=== PATIENT | female | born 1950 | race Caucasian/White ===

== ENCOUNTER → 2016-06-22 | Outpatient (CLI) | payer MEDICARE, OTHER ==
[~2016-06-22] VITALS: Ht 160 cm; Wt 54.4 kg
[~2016-06-22] MED LIST: AC325T; ACET-461 PO; ASPI-983 PO; ATOR40TA70; ATOR40TA70 PO; CATHETER FLUSH 10 ML SYR IV PRN; CPR500T PO; DICY10CA12 PO; ERYT-95 PO; FAMO20TA5 PO; HYDR1TAB PO; HYOS0.1283 SL; ISOS30TA3 PO; LISI10TA2 PO; LRT10T PO; METR500T PO; NORT50CA PO; ONDA4TAB8 PO; REGADENOSON 0.4 MG/5 ML SYR (LEXISCAN) IV ONE; TRAM-21 PO; [UNRECOGNIZED DRUG - CODE]
--- OUTSIDE RECORDS SUMMARY | 2016-06-22 09:06 | XMS REPORT | Continuity of Care Document ---
Author Author [facility] Organization [facility] Address Unknown Phone Unavailable Care Team Providers Care Home Demonstration Agent Name Role Phone Rama Menendez PCP [phone] Source Comments Some departments are not documenting in the electronic medical record. If you do not see the information that you expected, contact Release of Information in the Health Information Management department at [phone] for further assistance in locating additional records.[facility] Active Allergies and Adverse Reactions Allergen Noted Date Severity Reactions Comments Codeine 07/02/2012 NAUSEA AND VOMITING Current Medications Prescription Sig. Disp. Refills Start End Date Status Date polyethylene glycol 3350 Take 17 g by mouth daily. Active (GLYCOLAX; MIRALAX) 17 gram/dose powder famotidine (PEPCID) 20 mg Take 20 mg by mouth twice Active tablet daily. dicyclomine (BENTYL) 10 Take 10 mg by mouth every Active mg capsule 6 hours as needed. loratadine (CLARITIN) 10 Take 20 mg by mouth Active mg tablet daily. nortriptyline (PAMELOR) Take 1 Cap by mouth at 30 Cap 5 08/16/19 Active 50 mg capsule bedtime daily. 13 cholecalciferol (Vitamin Take 1,000 Units by mouth Active D3) (VITAMIN D-3) 1,000 daily. units tablet acetaminophen (TYLENOL) Take 1,000 mg by mouth as Active 500 mg tablet Needed. atorvastatin (LIPITOR) 40 Take 40 mg by mouth Active mg tablet daily. cyanocobalamin (VITAMIN Inject 1 mL to area(s) as 3 Vial 3 09/05/19 Active B-12, RUBRAMIN) 1,000 directed every 30 days. 15 mcg/mL injection gabapentin (NEURONTIN) Take 1 Cap by mouth twice 270 Cap 3 05/07/20 Active 300 mg capsule daily. 15 lisinopril (PRINIVIL; Take 10 mg by mouth Active ZESTRIL) 10 mg tablet daily. isosorbide mononitrate SR Take 30 mg by mouth every Active (IMDUR) 30 mg tablet morning. predniSONE (DELTASONE) 10 Take 1 Tab by mouth daily 53 Tab 0 03/17/20 Active mg tablet with breakfast. 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 This is according to GI note and the patient. There is no scan of the biopsy in [facility]. She didn't have peripheral eosinophilia on CBC. It could be related to Prednisone course, so we will repeat it today again. We think the patient came a little bit earlier for oriented management. It would be important to find out the extent of the disease by confirming it by EGD and colonoscopy, since it will dictate the use of certain glucocorticoids. Although food hypersensitivity plays an important role in EG pathogenesis, no food allergy test (skin, patch or allergen specific IgE) has been shown to effectively identify specific culprit foods leading to clinical improvement of EG symptoms or tissue eosinophilia. Thus, at present there is no evidence base to support routine food allergy testing of EG patients for use in clinical decision making. A prospective trial in adults with EG has demonstrated clinical remission with a six-week course of dietary elimination. In this study, three of seven adults undergoing an empiric six food elimination diet and six of six adults undergoing elemental diet had significant reduction in symptoms, complete histological remission, endoscopic improvement and normalization of peripheral eosinophilia within six weeks. There is some data that elimination of milk and milk products alone could be beneficial. We discussed it with Ms. Bautista and she didn't enjoy the idea this time. Apparently Cromolyn is considered by our GI colleagues as a part of treatment as well. There are case reports and some of them report improvement and some not. Montelukast was described to be effective in some case reports, but not all of them. In a preliminary report of four patients, treatment with a humanized xeie-bdjuoxvqbsk-9 antibody was associated with reduced peripheral and tissue eosinophil counts but had no effect on symptoms. Similar results were described by using humanized wfhb-lzuchgpshvv-2 antibody in patients with EoE. She denies any history of asthma or hayfever. Though it is a known fact that aeroallergens play some role in patients with EoE. We are not sure if testing this patient for aeroallergen would be contributory, but we might consider it in the future. She had in the past multiple episodes of abdominal pain and diarrhea. --order tryptase today Abdominal bloating 07/02/2012 History of small bowel obstruction 07/02/2012 Overview: S/p resection 38cm 04/2012 Most Recent Encounters Date Type Specialty Providers Description 05/31/2016 Telephone Gastroenterology Jamir King MD Results - CT Colonography 05/31/2016 Result Letter Gastroenterology Jamir King MD 05/30/2016 Hospital Radiology Jamir King MD Encounter 04/20/2016 Telephone Gastroenterology Angeles Hernandez ARNP Follow-up Phone Call Social History Tobacco Use Types Packs/Day Years Used Date Current Every Day Smoker Cigarettes 0.5 40 Tobacco Cessation: Ready to Quit: No Comments: Alcohol Use Drinks/Week oz/Week Comments No 0 Standard 0.0 drinks or equivalent Last Filed Vital Signs Vital Sign Reading Time Taken Blood Pressure 100/50 03/17/2016 1:26 PM CDT Pulse 77 03/17/2016 1:26 PM CDT Temperature 36.7 C (98 F) 03/17/2016 1:26 PM CDT Respiratory Rate 16 03/17/2016 1:26 PM CDT Height 1.575 m (5' 2") 03/17/2016 1:26 PM CDT Weight 55.702 kg (122 lb 12.8 03/17/2016 1:26 PM CDT oz) Body Mass Index 22.45 03/17/2016 1:26 PM CDT Oxygen Saturation 97% 03/17/2016 1:26 PM CDT Plan of Care Date Type Specialty Providers Description 08/03/2016 Appointment Gastroenterology Jamir King MD [address] [facility] [address] [place] [address] [phone] (Fax) Health Maintenance Due Date Last Done Comments Hepatitis C Screening 1950 Physical (Comprehensive) 1958 Exam Pertussis Vaccine 1962 Tetanus Vaccine 1968 Breast Cancer Screening 1991 Shingles Vaccine 2011 Influenza Vaccine 02/18/2016 Osteoporosis Screening 2016 Prevnar/Pneumovax (#1) 2016 Colorectal Cancer 07/09/2025 07/09/2015, 07/19/2012, 07/19/2012 Screening Results from Last [address] COLONOGRAPHY DX WO CONTRST (05/30/2016 8:51 AM) Impressions EXTRACOLONIC: No significant extracolonic findings identified. COLONIC: 1. No large polyp or colonic mass lesions identified. Continued routine colonic screening is suggested. 2. Redundant sigmoid colon with mild sigmoid diverticulosis. Finalized by Vika Pelayo M.D. on 05/30/2016 4:58 PM. Dictated by Vika Pelayo M.D. on 05/30/2016 4:[address] COLONOGRAPHY CLINICAL HISTORY: 66-year-old female with abdominal pain. Previous incomplete colonoscopy with reported visualization to the level of the transverse colon. TECHNIQUE: One-day prior to the study the patient was prepped using a combination of bisacodyl, 2 bottles of magnesium citrate, liquid barium sulfate , and Gastrografin per a standard protocol. A rectal tube was inserted and the colon was insufflated with CO2. Multiple contiguous axial CT images were obtained of the abdomen and pelvis with the patient in the supine and prone positions. Multiplanar reformations were performed and 3D colonography fly through images were then generated using axial source data. Comparison: Comparison is made with previous MR enterography dated June 14, [address] abdomen/pelvis dated March 10, 2015. No prior CT colongraphy is available for comparison. FINDINGS: Extracolonic findings: Numerous small bowel anastomoses are seen. Colonic findings: Note this study is insensitive for detection of small polyps (less than 1 cm). The colon is well prepped and well distended. There is redundancy of the sigmoid colon with mild sigmoid diverticulosis identified. No findings to suggest acute diverticulitis. No large polyp or colonic mass lesion is identified. Procedure Note Interface, Radiant Results - Mon May 30, 2016 5:01 PM CHEMISTRY TECHNICAL OFFICER CT COLONOGRAPHY CLINICAL HISTORY: 66-year-old female with abdominal pain. Previous incomplete colonoscopy with reported visualization to the level of the transverse colon. TECHNIQUE: One-day prior to the study the patient was prepped using a combination of bisacodyl, 2 bottles of magnesium citrate, liquid barium sulfate , and Gastrografin per a standard protocol. A rectal tube was inserted and the colon was insufflated with CO2. Multiple contiguous axial CT images were obtained of the abdomen and pelvis with the patient in the supine and prone positions. Multiplanar reformations were performed and 3D colonography fly through images were then generated using axial source data. Comparison: Comparison is made with previous MR enterography dated June 14, [address] abdomen/pelvis dated March 10, 2015. No prior CT colongraphy is available for comparison. FINDINGS: Extracolonic findings: Numerous small bowel anastomoses are seen. Colonic findings: Note this study is insensitive for detection of small polyps (less than 1 cm). The colon is well prepped and well distended. There is redundancy of the sigmoid colon with mild sigmoid diverticulosis identified. No findings to suggest acute diverticulitis. No large polyp or colonic mass lesion is identified. IMPRESSION EXTRACOLONIC: No significant extracolonic findings identified. COLONIC: 1. No large polyp or colonic mass lesions identified. Continued routine colonic screening is suggested. 2. Redundant sigmoid colon with mild sigmoid diverticulosis. Finalized by Vika Pelayo M.D. on 05/30/2016 4:58 PM. Dictated by Vika Pelayo M.D. on 05/30/2016 4:02 PM.
[2016-06-22 09:57] VITALS: BP 123/66
[2016-06-22 09:59] VITALS: BP 123/64
--- NOTE | 2016-06-23 09:58 | STRESS TEST ---
PROCEDURE PHYSICIAN: TURNER PRADO LEXISCAN MYOVIEW STRESS TEST REPORT DATE OF PROCEDURE: 06/22/2016 REFERRING PHYSICIAN: Dr. Menendez INDICATION: Chest pain, coronary artery disease. Baseline heart rate is 79, baseline blood pressure: 125/83. Baseline EKG: Sinus rhythm with no ischemic changes. SUMMARY: The patient was injected with 10.63 mCi of technetium 99 Myoview and the resting images were obtained. Then the patient received 0.4 mg of Lexiscan followed by 32.2 mCi of technetium 99 Myoview. Throughout the test, there were no EKG changes. The resting and stress images were reviewed and compared in the short axis, horizontal long axis, and vertical long axis views. Review of the images showed good radiotracer uptake with no significant ischemia or infarction. SSS is 1, SDS 1, TID value is 1.08. On the gated images, the left ventricle appeared to be normal size with normal contractility. Calculated ejection fraction 71%. CONCLUSION: 1. The patient tolerated Lexiscan well. 2. No ischemia or infarction on SPECT images. 3. Normal left ventricular size with normal contractility. Calculated ejection fraction 71% Job ID: [id number] Dictated Date: 06/22/2016 19:22:21 Educational Speech Language Clinician Date: 06/23/2016 09:54:04 / jimmy
== END ==
LOC: CARD 09:03
PROVIDERS: ATTEND Physician Assistant
DX: I25.10 Atherosclerotic heart disease of native coronary artery without angina pectoris (principal); R07.89 Other chest pain; E78.2 Mixed hyperlipidemia; R06.02 Shortness of breath
CPT/HCPCS: 78452; 93017

== ENCOUNTER → 2016-06-24 | Outpatient (CLI) | payer MEDICARE, OTHER ==
[~2016-06-24] MED LIST changes: -CATHETER FLUSH 10 ML SYR IV PRN; -REGADENOSON 0.4 MG/5 ML SYR (LEXISCAN) IV ONE
--- OUTSIDE RECORDS SUMMARY | 2016-06-24 08:24 | XMS REPORT | Continuity of Care Document ---
Author Author [facility] Organization [facility] Address Unknown Phone Unavailable Care Team Providers Care Basket Person Name Role Phone Rama Menendez PCP [phone] Source Comments Some departments are not documenting in the electronic medical record. If you do not see the information that you expected, contact Release of Information in the Health Information Management department at [phone] for further assistance in locating additional records.[facility] Active Allergies and Adverse Reactions Allergen Noted [...] of four patients, treatment with a humanized qwrj-lcaxnaihnpx-1 antibody was associated with reduced peripheral and tissue eosinophil counts but had no effect on symptoms. Similar results were described by using humanized elra-tgxsyfxdvly-5 antibody in patients with EoE. She denies [...] 08/03/2016 Appointment Gastroenterology Jamir King MD [address] [facility] [address] [place] [address] [phone] (Fax) Health Maintenance Due Date Last Done [...] - Mon May 30, 2016 5:[address] COLONOGRAPHY CLINICAL HISTORY: 66-year-old female with [...]
--- NOTE | 2016-06-26 15:54 | ECHOCARDIOGRAPHY REPORT ---
PROCEDURE PHYSICIAN: TURNER PRADO DATE OF PROCEDURE: 06/24/2016 TWO DIMENSIONAL ECHOCARDIOGRAM REPORT PRIMARY PHYSICIAN: OTHER PHYSICIAN: REFERRING PHYSICIAN: Dr. Priscila Menendez ORDERING PHYSICIAN: INDICATION FOR THE PROCEDURE: 1. Chest pain. 2. Coronary artery disease. MEASUREMENTS DERIVED VALUES LV DIAMETER (LAX) NORMALS NORMALS Diastolic 3.4 (3.6-5.2) Eject. Fract. 60% (60%+/-6%) Systolic (2.3-3.9) Diastolic Vol. % Shortening (0.22-0.42) Systolic Vol. Aortic Root IVS THICKNESS Diastolic 0.9 (0.6-1.1) LVPW THICKNESS Diastolic 0.9 (0.6-1.1) LA DIAMETER Systolic 2.2 (2.1-3.7) FINDINGS: 1. Technical quality is good. 2. The left ventricle is normal in size with normal contractility. Systolic function appeared to be normal. Estimated ejection fraction 60%. Diastolic dysfunction is suggested by Doppler. 3. The left atrium is normal in size. No clot or thrombus were seen within the left atrium. 4. The right atrium and right ventricle are normal in size. No clot or thrombus were seen within the right side. 5. Mitral valve is normal in morphology with mild mitral regurgitation noted by color Doppler flow. No mitral valve prolapse. No mitral valve stenosis. Doppler across the mitral valve showed equalization of E and A. 6. Aortic valve is functioning normally. There is no significant aortic stenosis or regurgitation seen. 7. Tricuspid valve is normal in morphology with mild tricuspid regurgitation noted by color Doppler flow. Doppler across tricuspid valve estimated pulmonary artery pressure of 20+ right atrial pressure. 8. Pulmonic valve is functioning normally. 9. No pericardial effusion. IN CONCLUSION: 1. Normal left ventricular size and systolic function. Estimated ejection fraction 60%. Diastolic dysfunction is suggested by Doppler. 2. Mild mitral and tricuspid regurgitation. 3. Estimated pulmonary artery pressure of 25 to 30 mmHg. Job ID: [id number] Dictated Date: 06/25/2016 12:52:05 Financial Planner Date: 06/26/2016 15:50:57 / wan
== END ==
LOC: CARD 08:21
PROVIDERS: ATTEND Physician Assistant
DX: I25.10 Atherosclerotic heart disease of native coronary artery without angina pectoris (principal); R07.89 Other chest pain; E78.2 Mixed hyperlipidemia; R06.02 Shortness of breath
CPT/HCPCS: 93306

== ENCOUNTER → 2016-07-28 | Outpatient (CLI) | payer MEDICARE, OTHER, BC ==
--- OUTSIDE RECORDS SUMMARY | 2016-07-28 13:07 | XMS REPORT | Continuity of Care Document ---
Author Author [facility] Organization [facility] Address Unknown Phone Unavailable Care Team Providers Care City Maintenance Manager Name Role Phone Rama Menendez PCP [phone] Source Comments Some departments are not documenting in the electronic medical record. If you do not see the information that you expected, contact Release of Information in the Health Information Management department at [phone] for further assistance in locating additional records.[facility] Active Allergies and Adverse Reactions Allergen Noted [...] of four patients, treatment with a humanized dxsl-mhazhofwupv-8 antibody was associated with reduced peripheral and tissue eosinophil counts but had no effect on symptoms. Similar results were described by using humanized slae-xvzpgyzkhhz-1 antibody in patients with EoE. She denies [...] Recent Encounters Date Type Specialty Providers Description 07/22/2016 Result Letter Gastroenterology Delon Moy MD 07/19/2016 Telephone Gastroenterology Delon Moy MD Follow-up Phone Call 07/18/2016 [facility] Delon Moy MD Other chest pain Encounter 07/18/2016 Orders Only Gastroenterology Delon Moy MD 07/11/2016 Telephone Gastroenterology Delon Moy MD Chest Pain 05/31/2016 Telephone Gastroenterology Delon Moy MD Results - CT Colonography 05/31/2016 Result Letter Gastroenterology Delon Moy MD 05/30/2016 [facility] Radiology Delon Moy MD Encounter Social History Tobacco Use Types Packs/Day Years [...] of Care Date Type Specialty Providers Description 08/01/2016 Appointment Radiology Delon Moy MD [address] [facility] [address] [place] [address] [phone] (Fax) 08/03/2016 Appointment Gastroenterology Delon Myo MD [address] [facility] [address] [place] [address] [phone] (Fax) Health Maintenance Due Date Last Done Comments Hepatitis C Screening 1950 Physical (Comprehensive) 1958 Exam Pertussis Vaccine 1962 Tetanus Vaccine 1968 Breast Cancer Screening 1991 Shingles Vaccine 2011 Influenza Vaccine 02/18/2016 Osteoporosis Screening 2016 Prevnar/Pneumovax (#1) 2016 Colorectal Cancer 07/09/2025 07/09/2015, 07/19/2012, 07/19/2012 Screening Results from Last 3 Months SURGICAL PATHOLOGY (07/18/2016 7:57 AM) Component Value Range PATHOLOGY REPORT [facility] [email or web address] Vivien Neal MD, PhD, Director of Anatomic Pathology Department of Pathology and Laboratory Medicine [address] [place] [id number] Surgical Pathology Office: [phone] SURGICAL PATHOLOGY REPORT NAME: SHANAE BAUTISTA SURG PATH #: [id number] MR #: [id number] SPECIMEN CLASS: SR BILLING #: [id number] ALT ID #: LOCATION: [facility] DATE OF PROCEDURE: 07/18/2016 AGE: 66 SEX: F DATE RECEIVED: 07/19/2016 : 1950 TIME RECEIVED: 07:57 PHYSICIAN: DELON MOY M.D. DATE OF REPORT: 07/20/2016 COPY TO: DATE OF PRINTIN07/20/2016 ################################################## ###################### Final Diagnosis: A. Small intestinal mucosa, "duodenal biopsy", biopsy: Normal villous architecture with no diagnostic abnormalities. There is no evidence of celiac sprue or eosinophilic enteritis. B. Gastric mucosa, "random gastric biopsy", biopsy: Mild reactive gastropathy. No H. pylori-like organisms are identified on H and E sections. There is no evidence of eosinophilic gastritis. C. Squamous mucosa, "esophageal biopsy", biopsy: No diagnostic abnormalities. There is no evidence of eosinophilic esophagitis. Attestation: By this signature, I attest that I have personally formulated the final interpretation expressed in this report and that the above diagnosis is based upon my examination of the slides and/or other material indicated in this report. +++Electronically Signed Out By+++ bo/07/19/2016 Interpreted by: Jaison Troncoso M.D. Resident 07/20/2016 ################################################## ###################### Material Received: A: duodenal biopsy B: random gastric biopsy C: esophageal biopsy History: 66-year-old female with a history of chest pain with weight loss. Gross Description: A. Received in formalin labeled "duodenal BX" is a 0.7 x 0.6 x 0.4 cm aggregate of charles-brown soft tissue fragments. The specimen is entirely submitted in cassette A1. (tn) B. Received in formalin labeled "random gastric BX" is a 0.7 x 0.6 x 0.3 cm aggregate of charles-brown soft tissue fragments. The specimen is entirely submitted in cassette B1. (tn) C. Received in formalin labeled "esophageal BX" is a 0.5 x 0.4 x 0.2 cm aggregate of charles-brown soft tissue fragments. The specimen is entirely submitted in cassette C1. (tn) charles/07/19/2016 Pat Matt M.D. Resident EGD REPORT (07/18/2016)CT COLONOGRAPHY DX WO CONTRST (05/30/2016 8:51 AM) [...] - Mon May 30, 2016 5:01 PM GAS CUTTING MACHINE OPERATOR CT COLONOGRAPHY CLINICAL HISTORY: 66-year-old female with [...]
--- NOTE | 2016-07-28 15:47 | Diagnostic Imaging Report ---
PROCEDURE: CT chest without contrast. TECHNIQUE: Multiple contiguous axial images were obtained through the chest without the use of intravenous contrast. INDICATION: Chest pain, shortness of breath. COMPARISON: No priors for direct comparison. The study correlated with overlapped images from an abdominal CT of 03/07/2016. FINDINGS: Some air trapping and likely emphysematous changes in the apices. No acute infiltrate or pneumonia. No lung mass or suspicious nodule. No findings of thoracic lymphadenopathy. The aorta is nonaneurysmal. Heart and pericardium are unremarkable. There is a tiny hiatal hernia. The visualized upper abdomen is nonacute. No acute soft tissue or osseous chest wall pathology. IMPRESSION: Likely mild biapical changes of COPD. No mass, pneumothorax, pleural fluid, pneumonia, or adenopathy. No acute finding. Dictated by: Dictated on workstation # [id number]
== END ==
LOC: RAD 13:03
PROVIDERS: ATTEND Nurse Practitioner Family
DX: R07.9 Chest pain, unspecified (principal)
CPT/HCPCS: 71250

== ENCOUNTER → 2016-08-18 | Outpatient (CLI) | payer MEDICARE, OTHER ==
--- OUTSIDE RECORDS SUMMARY | 2016-08-18 11:40 | XMS REPORT | Continuity of Care Document ---
Author Author [facility] Organization [facility] Address Unknown Phone Unavailable Care Team Providers Care Rodent Control Worker Name Role Phone Rama Menendez PCP [phone] Source Comments Some departments are not documenting in the electronic medical record. If you do not see the information that you expected, contact Release of Information in the Health Information Management department at [phone] for further assistance in locating additional records.[facility] Active Allergies and Adverse Reactions Allergen Noted [...] SR Take 30 mg by mouth every 08/03/19 Discontin (IMDUR) 30 mg tablet morning. 17 ued predniSONE (DELTASONE) 10 Take 1 Tab by mouth daily 53 Tab 0 03/17/20 08/03/19 Discontin mg tablet with breakfast. 20mg for 16 17 ued 14 days then take 15mg for 1 [...] of four patients, treatment with a humanized ahvl-bjquqcmcsha-0 antibody was associated with reduced peripheral and tissue eosinophil counts but had no effect on symptoms. Similar results were described by using humanized vsvo-ebetgaynovw-2 antibody in patients with EoE. She denies [...] Recent Encounters Date Type Specialty Providers Description 08/03/2016 Office Visit GastroenterDelon Aranda MD Chest pain, unspecified type (Primary Dx); Constipation, unspecified constipation type 08/03/2016 Telephone GastroenterDelon Aranda MD Records Request 08/01/2016 Hospital Radiology Delon Moy MD Encounter 08/01/2016 Ancillary Gastroenterology Delon Moy MD Pancreatic cyst (Primary Orders Dx) 07/29/2016 Screening Form 07/22/2016 Result Letter Delon Mcfadden MD 07/19/2016 Telephone Delon Mcfadden MD Follow-up Phone Call 07/18/2016 [facility] Delon Moy MD Other chest pain Encounter 07/18/2016 Orders Only GastroenterDelon Aranda MD 07/11/2016 Telephone Delon Mcfadden MD Chest Pain 05/31/2016 Telephone GastroenterDelon Aranda MD Results - CT Colonography 05/31/2016 Result Letter Delon Mcfadden MD 05/30/2016 [facility] Radiology Delon Moy MD Encounter Social History Tobacco Use Types Packs/Day Years Used Date Current Every Day Smoker Cigarettes 0.5 40 Tobacco Cessation: Ready to Quit: No Comments: Alcohol Use Drinks/Week oz/Week Comments No 0 Standard 0.0 drinks or equivalent Last Filed Vital Signs Vital Sign Reading Time Taken Blood Pressure 150/88 08/03/2016 8:05 AM [employer] RN Pulse 92 08/03/2016 8:05 AM [employer] RN Temperature 36.5 C (97.7 F) 08/03/2016 8:05 AM [employer] RN Respiratory Rate 14 08/03/2016 8:05 AM [employer] RN Height 1.575 m (5' 2") 08/03/2016 8:05 AM [employer] RN Weight 51.982 kg (114 lb 9.6 oz) 08/03/2016 8:05 AM [employer] RN Body Mass Index 20.96 08/03/2016 8:05 AM [employer] RN Oxygen Saturation 97% 03/17/2016 1:26 PM CDT Plan of Care Date Type Specialty Providers Description 10/06/2016 Appointment Gastroenterology Delon Moy MD [address] [place] [address] [phone] (Fax) Health Maintenance Due Date Last Done Comments Hepatitis C Screening 1950 Physical (Comprehensive) 1958 Exam Pertussis Vaccine 1962 Tetanus Vaccine 1968 Breast Cancer Screening 1991 Shingles Vaccine 2011 Influenza Vaccine 02/18/2016 Osteoporosis Screening 2016 Prevnar/Pneumovax (#1) 2016 Colorectal Cancer 07/09/2025 07/09/2015, 07/19/2012, 07/19/2012 Screening Results from Last 3 Months MRI ABD/MRCP WO/W (08/01/2016 10:21 AM) Impressions 1. Stable subcentimeter cystic lesion in the body of the pancreas remains too small to characterize, but likely small pseudocyst or side branch IPMN. 2. Moderate aortoiliac atherosclerotic plaque with probable high-grade stenosis of the left common iliac artery. Approved by Lilo Melgar M.D. on 08/01/2016 1:36 PM By my electronic signature, I attest that I have personally reviewed the images for this examination and formulated the interpretations and opinions expressed in this report Finalized by JAY JJ M.D. on 08/01/2016 1:52 PM. Dictated by Lilo Melgar M.D. on 08/01/2016 11:16 AM. Narrative MRI ABDOMEN AND MRCP Clinical Indication: Pancreatic cyst. 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 Technique: Multisequence and multiplanar MR imaging was obtained through the abdomen before and following the administration of gadolinium contrast material. IV Contrast:Multihance Bowel contrast: None Magnet:1.5 [employer] Comparison: MRI abdomen 06/14/2015 FINDINGS: Lower Thorax: Unremarkable. Liver: Normal sized liver without focal lesion. The portal veins and hepatic veins are well opacified. MRCP: The gallbladder is absent. No bile duct dilatation. The pancreatic duct is normal caliber. Spleen: Unremarkable. Adrenal Glands and Kidneys: Few subcentimeter left renal cysts. No hydronephrosis. No adrenal mass. Pancreas and Retroperitoneum: Cystic lesion in the body of the pancreas measuring 0.4 cm (series 5 image 13), previously 0.5 cm. No internal enhancement. The adjacent pancreatic duct is normal caliber. The pancreatic parenchyma enhances normally. No peripancreatic fluid collection. No retroperitoneal lymphadenopathy. Aorta and Major Vessels: Normal caliber abdominal aorta with moderate atherosclerotic plaque. There is prominent plaque at the origin of the left common iliac artery with probable high-grade luminal narrowing. Bowel, Mesentery, and Peritoneal space: Visualized loops of large and small bowel are normal caliber. No ascites. Abdominal wall and Osseous Structures: No geographic marrow lesion. Susceptibility artifact in the ventral abdominal wall from previous surgery. Procedure Note Interface, Radiant Results - MonAug 01, 2016 1:55 PM [employer] RN MRI ABDOMEN AND MRCP Clinical Indication: Pancreatic cyst. 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 Technique: Multisequence and multiplanar MR imaging was obtained through the abdomen before and following the administration of gadolinium contrast material. IV Contrast:Multihance Bowel contrast: None Magnet:1.5 [employer] Comparison: MRI abdomen 06/14/2015 FINDINGS: Lower Thorax: Unremarkable. Liver: Normal sized liver without focal lesion. The portal veins and hepatic veins are well opacified. MRCP: The gallbladder is absent. No bile duct dilatation. The pancreatic duct is normal caliber. Spleen: Unremarkable. Adrenal Glands and Kidneys: Few subcentimeter left renal cysts. No hydronephrosis. No adrenal mass. Pancreas and Retroperitoneum: Cystic lesion in the body of the pancreas measuring 0.4 cm (series 5 image 13), previously 0.5 cm. No internal enhancement. The adjacent pancreatic duct is normal caliber. The pancreatic parenchyma enhances normally. No peripancreatic fluid collection. No retroperitoneal lymphadenopathy. Aorta and Major Vessels: Normal caliber abdominal aorta with moderate atherosclerotic plaque. There is prominent plaque at the origin of the left common iliac artery with probable high-grade luminal narrowing. Bowel, Mesentery, and Peritoneal space: Visualized loops of large and small bowel are normal caliber. No ascites. Abdominal wall and Osseous Structures: No geographic marrow lesion. Susceptibility artifact in the ventral abdominal wall from previous surgery. IMPRESSION 1. Stable subcentimeter cystic lesion in the body of the pancreas remains too small to characterize, but likely small pseudocyst or side branch IPMN. 2. Moderate aortoiliac atherosclerotic plaque with probable high-grade stenosis of the left common iliac artery. Approved by Lilo Melgar M.D. on 08/01/2016 1:36 PM By my electronic signature, I attest that I have personally reviewed the images for this examination and formulated the interpretations and opinions expressed in this report Finalized by JAY JJ M.D. on 08/01/2016 1:52 PM. Dictated by Lilo Melgar M.D. on 08/01/2016 11:16 AM. POC CREATININE, RAD (08/01/2016 10:06 AM) Component Value Range Creatinine, POC 0.9 0.4-1.00 MG/DL SURGICAL PATHOLOGY (07/18/2016 7:57 AM) Component Value Range PATHOLOGY REPORT [facility] [email or web address] Vivien Neal MD, PhD, Director of Anatomic Pathology Department of Pathology and Laboratory Medicine [address] [place] [id number] Surgical Pathology Office: [phone] SURGICAL PATHOLOGY REPORT NAME: SHANAE BAUTISTA J SURG PATH #: [id number] MR #: [id number] SPECIMEN CLASS: SR BILLING #: [id number] ALT ID #: LOCATION: [facility] DATE OF PROCEDURE: 07/18/2016 AGE: 66 SEX: [...] - Mon May 30, 2016 5:01 PM [employer] RN CT COLONOGRAPHY CLINICAL HISTORY: 66-year-old female with [...]
--- NOTE | 2016-08-18 12:37 | Diagnostic Imaging Report ---
EXAM: KUB. INDICATION: Abdominal pain. FINDINGS: There are multiple surgical clips seen in the mid abdomen. There are also sutures in the left and right lower quadrants. There are no definitive urinary tract stones. The bowel gas pattern and fecal material amount are within normal limits. IMPRESSION: No acute process. Dictated by: Dictated on workstation # [id number]
== END ==
LOC: RAD 11:15
PROVIDERS: ATTEND Nurse Practitioner Family
DX: R10.12 Left upper quadrant pain (principal)
CPT/HCPCS: 74000

== ENCOUNTER → 2016-08-26 | Outpatient (CLI) | payer MEDICARE, OTHER ==
[~2016-08-26] MED LIST changes: +CATHETER FLUSH 10 ML SYR IV PRN; +IOHEXOL 350 MG/ML 150 ML (OMNIPAQUE 350) VIAL IV ONE; +NS 100 ML (IVPB) BAG IV ONE
--- OUTSIDE RECORDS SUMMARY | 2016-08-26 13:22 | XMS REPORT | Continuity of Care Document ---
Author Author [facility] Organization [facility] Address Unknown Phone Unavailable Care Team Providers Care Business Office Director Name Role Phone Rama Menendez PCP [phone] Source Comments Some departments are not documenting in the electronic medical record. If you do not see the information that you expected, contact Release of Information in the Health Information Management department at [phone] for further assistance in locating additional records.[facility] Active Allergies and Adverse Reactions [...] of four patients, treatment with a humanized ibdu-zdcbrvvtndp-1 antibody was associated with reduced peripheral and tissue eosinophil counts but had no effect on symptoms. Similar results were described by using humanized ogbz-jtdbphifuzq-5 antibody in patients with EoE. She denies [...] Delon Mcfadden MD Follow-up Phone Call 07/18/2016 [facility] Delon Moy MD Other chest pain Encounter 07/18/2016 Orders Only GastroenterDelon Aranda MD 07/11/2016 Telephone Delon Mcfadden MD Chest Pain 05/31/2016 Telephone GastroenterDelon Aranda MD Results - CT Colonography 05/31/2016 Result Letter Delon Mcfadden MD 05/30/2016 [facility] Radiology Delon Moy MD Encounter Social History Tobacco Use Types Packs/Day Years Used Date Current Every Day Smoker Cigarettes 0.5 40 Tobacco Cessation: Ready to Quit: No Comments: Alcohol Use Drinks/Week oz/Week Comments No 0 Standard 0.0 drinks or equivalent Last Filed Vital Signs Vital Sign Reading Time Taken Blood Pressure 150/88 08/03/2016 8:05 AM CERTIFIED OPHTHALMIC ASSISTANT Pulse 92 08/03/2016 8:05 AM CERTIFIED OPHTHALMIC ASSISTANT Temperature 36.5 C (97.7 F) 08/03/2016 8:05 AM CERTIFIED OPHTHALMIC ASSISTANT Respiratory Rate 14 08/03/2016 8:05 AM CERTIFIED OPHTHALMIC ASSISTANT Height 1.575 m (5' 2") 08/03/2016 8:05 AM CERTIFIED OPHTHALMIC ASSISTANT Weight 51.982 kg (114 lb 9.6 oz) 08/03/2016 8:05 AM CERTIFIED OPHTHALMIC ASSISTANT Body Mass Index 20.96 08/03/2016 8:05 AM CERTIFIED OPHTHALMIC ASSISTANT Oxygen Saturation 97% 03/17/2016 1:26 PM CDT Plan of Care Date Type Specialty Providers Description 10/06/2016 Appointment Gastroenterology Delon Moy MD [address] [place] [address] [phone] (Fax) Health Maintenance Due Date Last Done Comments Hepatitis C Screening 1950 Physical (Comprehensive) 1958 Exam Pertussis Vaccine 1962 Tetanus Vaccine 1968 Breast Cancer Screening 1991 Shingles Vaccine 2011 Osteoporosis Screening 2016 Prevnar/Pneumovax (#1) 2016 Influenza Vaccine 02/17/2017 Colorectal Cancer 07/09/2025 07/09/2015, 07/19/2012, 07/19/2012 Screening [...] Results - MonAug 01, 2016 1:55 PM CERTIFIED OPHTHALMIC ASSISTANT MRI ABDOMEN AND MRCP Clinical Indication: Pancreatic cyst. 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 Technique: Multisequence and multiplanar MR imaging was obtained through the abdomen before and following the administration of gadolinium contrast material. IV Contrast:Multihance Bowel contrast: None Magnet:1.5 [employer] Comparison: MRI abdomen 06/14/2015 FINDINGS: Lower Thorax: [...] AM) Component Value Range PATHOLOGY REPORT [facility] [email or web address] Vivien Neal MD, PhD, Director of Anatomic Pathology Department of Pathology and Laboratory Medicine [address] [place] [id number] Surgical Pathology Office: [phone] SURGICAL PATHOLOGY REPORT NAME: SHANAE BAUTISTA J SURG PATH #: [id number] MR #: [id number] SPECIMEN CLASS: SR BILLING #: [id number] ALT ID #: LOCATION: [facility] DATE OF PROCEDURE: 07/18/2016 [...] - Mon May 30, 2016 5:[address]ALMIC ASSISTANT CT COLONOGRAPHY CLINICAL HISTORY: 66-year-old female with [...]
[2016-08-26 13:52] LABS: BLOOD UREA NITROGEN 13 MG/DL (7-18); BUN/CREATININE RATIO 15; CREATININE SERUM 0.89 MG/DL (0.60-1.30); GFR ESTIMATED > 60
--- NOTE | 2016-08-26 14:46 | Diagnostic Imaging Report ---
INDICATION: Peripheral vascular disease with leg pain. Abnormal ankle-brachial indices. CT angiography of the abdomen and lower extremities. Bolus injection with 2-D and 3-D MIP reconstructed images. FINDINGS: Good opacification of the aorta and lower extremity arteries. The celiac artery shows approximately 50-70% stenosis at its origin. The superior mesenteric arteries widely patent. The renal arteries show normal appearance on the right. There is a high-grade stenosis at the takeoff of the left renal artery estimated greater than 70%. The inferior mesenteric artery is patent. Aorta is diffusely atherosclerotic. There is no aneurysm. There is a short segment high-grade stenosis of the left common iliac artery estimated 80-90%. There is approximately 50% stenosis of the origin of the right common iliac artery. The external and internal iliac arteries are widely patent. The common femoral arteries and superficial femoral arteries as well as the profundus femoral arteries are widely patent. The popliteal artery shows no evidence of stenosis. The trifurcation vessels are widely patent. No significant atherosclerotic changes are seen within the trifurcation vessels to the ankle. There is interstitial lung disease noted in the lung bases. There is hepatomegaly with hepatic steatosis. The gallbladder is absent. Bile ducts not dilated. Pancreas is normal. The spleen is normal. The adrenal glands appear normal. The kidneys appear normal without obstruction or mass. No intra-abdominal adenopathy noted. Bowel gas pattern is normal. There is anastomotic suture ring in the right side of the colon consistent with previous surgery. There is also anastomotic suture ring in the left side of the colon. IMPRESSION: 1. Dense atherosclerotic disease of the aorta. No evidence of aneurysm. 2. High-grade stenosis origin of the left renal artery. 3. High-grade stenosis of the origin of the left common iliac artery with moderate stenosis right common iliac artery. The peripheral vessels below the common iliac artery bilaterally are widely patent to the ankle. Dictated by: Dictated on workstation # [id number]
== END ==
LOC: RAD 13:17
PROVIDERS: ATTEND Internal Medicine Cardiovascular Disease
DX: R10.12 Left upper quadrant pain (principal); M79.606 Pain in leg, unspecified; I70.203 Unspecified atherosclerosis of native arteries of extremities, bilateral legs
CPT/HCPCS: 36415; 75635; 82565; 84520

== ENCOUNTER 2016-09-05 14:08 | Inpatient (IN) | payer MEDICARE, OTHER ==
[~2016-09-05] VITALS: Ht 157.5 cm; Wt 55.0 kg
[~2016-09-05 14:08] MED LIST changes: -ASPI-983 PO; -ATOR40TA70 PO; -CATHETER FLUSH 10 ML SYR IV PRN; -ERYT-95 PO; -IOHEXOL 350 MG/ML 150 ML (OMNIPAQUE 350) VIAL IV ONE; -ISOS30TA3 PO; -LISI10TA2 PO; -NS 100 ML (IVPB) BAG IV ONE
--- OUTSIDE RECORDS SUMMARY | 2016-09-05 14:12 | XMS REPORT | Continuity of Care Document ---
Author Author [facility] Organization [facility] Address Unknown Phone Unavailable Care Team Providers Care Truck Driver Flatbed Name Role Phone Rama Menendez PCP [phone] Source Comments Some departments are not documenting in the electronic medical record. If you do not see the information that you expected, contact Release of Information in the Health Information Management department at [phone] for further assistance in locating additional records.[facility] Active Allergies and Adverse Reactions Allergen [...] mouth Active ZESTRIL) 10 mg tablet daily. Active Problems Problem Noted Date Hx of [...] of four patients, treatment with a humanized xcae-pehhmglumda-1 antibody was associated with reduced peripheral and tissue eosinophil counts but had no effect on symptoms. Similar results were described by using humanized ckox-hxiwhkzfbpm-2 antibody in patients with EoE. She denies [...] Recent Encounters Date Type Specialty Providers Description 08/30/2016 Telephone Gastroenterology Delon Moy MD Patient Questions; Provider Discussion About Patient 08/03/2016 Office Visit Gastroenterology Delon Moy MD Chest pain, unspecified type (Primary Dx); Constipation, unspecified constipation type 08/03/2016 Telephone Gastroenterology Delon Moy MD Records Request 08/01/2016 Hospital Radiology Delon Moy MD Encounter 08/01/2016 Ancillary Gastroenterology Delon Moy MD Pancreatic cyst (Primary Orders Dx) 07/29/2016 Screening Form 07/22/2016 Result Letter GastroenterDelon Aranda MD 07/19/2016 Telephone GastroenterDelon Aranda MD Follow-up Phone Call 07/18/2016 [facility] Delon Moy MD Other chest pain Encounter 07/18/2016 Orders Only Gastroenterology Delon Moy MD 07/11/2016 Telephone GastroenterDelon Aranda MD Chest Pain Social History Tobacco Use Types Packs/Day Years Used Date Current Every Day Smoker Cigarettes 0.5 40 Tobacco Cessation: Ready to Quit: No Comments: Alcohol Use Drinks/Week oz/Week Comments No 0 Standard 0.0 drinks or equivalent Last Filed Vital Signs Vital Sign Reading Time Taken Blood Pressure 150/88 08/03/2016 8:05 AM [employer] Pulse 92 08/03/2016 8:05 AM [employer] [employer] Temperature 36.5 C (97.7 F) 08/03/2016 8:05 AM [employer] [employer] Respiratory Rate 14 08/03/2016 8:05 AM [employer] [employer] Height 1.575 m (5' 2") 08/03/2016 8:05 AM [employer] Weight 51.982 kg (114 lb 9.6 oz) 08/03/2016 8:05 AM [employer] Body Mass Index 20.96 08/03/2016 8:05 AM [employer] [employer] Oxygen Saturation 97% 03/17/2016 1:26 PM CDT Plan of Care Date Type Specialty Providers Description 10/06/2016 Appointment Gastroenterology Delon Moy MD [address] [place] [address] [phone] (Fax) Health Maintenance Due Date Last Done [...] IV Contrast:Multihance Bowel contrast: None Magnet:1.5 [employer] Comparison: MRI abdomen 06/14/2015 FINDINGS: Lower Thorax: [...] Results - MonAug 01, 2016 1:55 PM [employer] MRI ABDOMEN AND MRCP Clinical Indication: Pancreatic [...] AM) Component Value Range PATHOLOGY REPORT [facility] [email or web address] Vivien Neal MD, PhD, Director of Anatomic Pathology Department of Pathology and Laboratory Medicine [address] [place] [id number] Surgical Pathology Office: [phone] SURGICAL PATHOLOGY REPORT NAME: SHANAE BAUTISTA J SURG PATH #: [id number] MR #: [id number] SPECIMEN CLASS: SR BILLING #: [id number] ALT ID #: LOCATION: [facility] DATE OF PROCEDURE: 07/18/2016 AGE: [...] charles/07/19/2016 Pat Matt M.D. Resident EGD REPORT (07/18/2016)
[2016-09-05] MEDS ORDERED: LACTATED RINGERS 1,000 ML IV ONE (14:19)
[2016-09-05] MEDS ORDERED: fentaNYL INJECTION 100 MCG/2 ML AMP IVP STA ×3 (14:19→16:56)
[2016-09-05 14:26] LABS: BASOPHILS # (AUTO) 0.1 10^3/uL (0.0-0.1); BASOPHILS % (AUTO) 0 % (0-10); EOSINOPHILS # (AUTO) 0.2 10^3/uL (0.0-0.3); EOSINOPHILS % (AUTO) 1 % (0-10); LYMPHOCYTES # (AUTO) 2.4 X 10^3 (1.0-4.0); LYMPHOCYTES % (AUTO) 19 % (12-44); MEAN CORPUSCULAR HEMOGLOBIN 32 PG (25-34); MEAN CORPUSCULAR HGB CONC 34 G/DL (32-36); MEAN CORPUSCULAR VOLUME 95 FL (80-99); MEAN PLATELET VOLUME 10.3 FL (7.4-10.4); MONOCYTES # (AUTO) 0.7 X 10^3 (0.0-1.0); MONOCYTES % (AUTO) 6 % (0-12); NEUTROPHILS # (AUTO) 9.5 X 10^3 (1.8-7.8); NEUTROPHILS % (AUTO) 74 % (42-75); PLATELET COUNT 307 10^3/uL (130-400); RED BLOOD COUNT 4.26 10^6/uL (4.35-5.85); RED CELL DISTRIBUTION WIDTH 13.9 % (10.0-14.5); WHITE BLOOD COUNT 12.8 10^3/uL (4.3-11.0)
[2016-09-05 14:47] LABS: ALBUMIN 4.1 G/DL (3.2-4.5); BILIRUBIN,TOTAL 0.4 MG/DL (0.1-1.0); CALCIUM 9.4 MG/DL (8.5-10.1); CREATININE SERUM 1.02 MG/DL (0.60-1.30); POTASSIUM 4.1 MMOL/L (3.6-5.0)
[2016-09-05] MEDS ORDERED: IOHEXOL 350 MG/ML 100 ML (OMNIPAQUE 350) VIAL IV ONE (15:15)
[2016-09-05] MEDS ORDERED: NS 100 ML (IVPB) BAG IV ONE (15:15)
--- NOTE | 2016-09-05 15:28 | Diagnostic Imaging Report ---
INDICATION: Abdominal pain and cramping. Comparison with 08/18/2016. FINDINGS: The lungs are well-aerated and clear. There is no evidence of free air into the diaphragm. Upright abdomen does show multiple air-fluid levels within the small bowel and colon. There are anastomotic sutures noted in the left lower quadrant. There is moderate amount of stool noted within the distal colon. IMPRESSION: 1. Mildly dilated air-fluid filled loops of large and small bowel as well as the stomach suggesting a probable generalized ileus. No definite indications of obstruction at this time though anastomotic sutures are seen in the left lower quadrant. 2. There is no evidence of free air in the diaphragm. Dictated by: Dictated on workstation # [id number]
--- NOTE | 2016-09-05 15:41 | Diagnostic Imaging Report ---
PROCEDURE: CT abdomen and pelvis with contrast. TECHNIQUE: Multiple contiguous axial images were obtained through the abdomen and pelvis after administration of intravenous contrast. INDICATION: Nausea and vomiting. History of previous cholecystectomy and hysterectomy as well as partial small bowel and colon resection. Comparison with 08/26/2016. FINDINGS: The lung bases are clear. The liver appears normal. The gallbladder is absent. Bile ducts are not dilated. The pancreas and spleen are normal. The adrenal glands and kidneys appear normal. The aorta and abdominal vessels enhance in a normal fashion. There is diffuse atherosclerotic disease. There is high-grade stenosis of the origin of the left iliac artery estimated 80%. Moderate stenosis of the right proximal iliac artery estimated 50-70%. The stomach is fluid-filled and distended. The duodenum is also fluid-filled and distended. The jejunum appears normal. The ileum is fluid-filled. There is fluid filling the colon as well. Anastomotic sutures are noted in the right mid colon. Stool and fluid within the rectosigmoid colon with no evidence of diverticulitis. No evidence of transition zone to indicate bowel obstruction at this time. IMPRESSION: 1. Fluid-filled loops of large and small bowel as well as distended stomach without specific transition zone. This is most likely secondary to adynamic ileus. Surgical anastomotic sutures are seen with no evidence of stenosis. 2. Severe atherosclerotic disease with high-grade stenosis noted at the proximal left common iliac artery estimated approximately 80%. Dictated by: Dictated on workstation # [id number]
[2016-09-05] MEDS ORDERED: LORazepam INJ 2 MG/ML (ATIVAN) VIAL IVP ONE (17:00)
[2016-09-05 17:25] VITALS: BP 135/63
[2016-09-05] MEDS ORDERED: LISI10TA2 PO (17:40)
[2016-09-05] MEDS ORDERED: DICY10CA12 PO (17:40)
[2016-09-05] MEDS ORDERED: ATOR40TA70 PO (17:40)
[2016-09-05] MEDS ORDERED: NORT50CA PO (17:40)
[2016-09-05] MEDS ORDERED: FAMO20TA5 PO (17:40)
[2016-09-05] MEDS ORDERED: CATHETER FLUSH 10 ML SYR IV PRN (17:45)
[2016-09-05] MEDS ORDERED: ONDANSETRON 4 MG/2 ML (SDV) Z0FRAN IV PRN (17:45)
--- NOTE | 2016-09-05 17:46 | History & Physicial ---
History of Present Illness History of Present Illness Reason for visit/HPI Colicky lower abdominal pain of 12 hours duration evaluation suggesting partial small bowel obstruction. Severe left iliac artery stenosis requiring endovascular intervention. Date of Admission Sep 05, 2016 at 4:05 pm I consulted on this patient on 09/05/16 17:41 Attending Physician Shavonne Warren MD Admitting Physician Priscila Menendez MD Consult Allergies and Home Medications Allergies Coded Allergies: codeine (Unverified Allergy, Mild, 02/15/09) Home Medications Atorvastatin Calcium 40 Mg Tablet 40 MG PO DAILY (Reported) Dicyclomine HCl 10 Mg Capsule 10 MG PO QID PRN PRN ABDOMINAL PAIN (Reported) Famotidine 20 Mg Tablet 20 MG PO DAILY (Reported) Lisinopril 10 Mg Tablet 10 MG PO DAILY (Reported) Loratadine 10 Mg Tab 10 MG PO DAILY (Reported) Nortriptyline HCl 50 Mg Capsule 50 MG PO DAILY (Reported) Past Acvuljv-Slyxgx-Easrif Hx Patient Social History Marrital Status: Employed/Student: retired Alcohol Use: Denies Use Recreational Drug Use: No Smoking Status: Current Everyday Smoker Type Used: Cigarettes Recent Foreign Travel: No Contact w/other who traveled: No Recent Hopitalizations: Yes Recent Infectious Disease Expo: No Immunizations Up To Date Tetanus Booster (TDap): Less than 5yrs Date of Influenza Vaccine: Apr 06, 2013 Surgeries HX Surgeries: Yes Surgeries: Abdominal, Adenoidectomy, Appendectomy, Bowel Surgery, Cardiac, Eye Surgery, Gallbladder, 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, Oophorectomy, Tonsillectomy Respiratory Hx Respiratory Disorders: No Respiratory Disorders: Chronic Bronchitis, COPD Cardiovascular Hx Cardiovascular Disorders: Yes (HEART CATH) Cardiac Disorders: Coronary Artery Disease, High Cholesterol, Hypertension Neurological Hx Neurological Disorders: No 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 System 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 Disorders: Yes (HYST-HAS 1 OVARY) Genitourinary Hx Genitourinary Disorders: No Gastrointestinal Hx Gastrointestinal Disorders: Yes (EOSINPHILIC ENTERITITS; SBO) Gastrointestinal Disorders: Gastrointestinal Bleed, Obstructive Bowel Musculoskeletal Hx Musculoskeletal Disorders: Yes (ROTATOR CUFF PAIN) Endocrine Hx Endocrine Disorders: No HEENT HX ENT Disorders: Yes HEENT Disorders: Cataract Loss of Vision: Bilateral Cancer Hx Cancer: No Psychosocial Hx Psychiatric Problems: No Integumentary HX Skin/Integumentary Disorder: No Blood Transfusions Hx Blood Disorders: No Adverse Reaction to a Blood Tr: No Constitutional: malaise EENTM: no symptoms reported Respiratory: no symptoms reported Cardiovascular: no symptoms reported Gastrointestinal: abdominal pain (LLQ) constipation loss of appetite nausea vomiting Genitourinary: no symptoms reported Musculoskeletal: no symptoms reported Skin: no symptoms reported Psychiatric/Neurological: No Symptoms Reported Physical Exam Vital Signs Vital Sign - Last 12Hours 09/05/16 09/05/16 14:15 16:50 Temp 97.7 Pulse 76 Resp 14 B/P 129/64 Pulse Ox 98 O2 Delivery Room Air Capillary Refill : Less Than 3 Seconds General Appearance: Anxious HEENT: PERRL/EOMI Neck: Normal Inspection Respiratory: Lungs Clear Cardiovascular: Regular Rate, Rhythm Gastrointestinal: Soft Tenderness Rectal: Deferred Back: Normal Inspection Extremity: Normal Capillary Refill Neurologic/Psychiatric: Alert Oriented x3 Skin: Warm/Dry Comments Midline incision without any incisional hernia. Very minimal tenderness over the lower abdomen had no evidence of peritonitis. Severe left iliac artery stenosis on CT scan Assessment/Plan Assessment and Plan Lady with possible recurrent partial small bowel obstruction. Left iliac artery stenosis pending endovascular intervention in a week. Chronic mesenteric ischemia to be considered as well. At this point it is reasonable to treat symptomatically with a nasogastric decompression, and narcotics and IV fluids. Problems: Admission Diagnosis Partial small bowel obstruction. Left iliac artery stenosis. Chronic smoking. Clinical Quality Measures DVT/VTE Risk/Contraindication: VTE Present on Admission: SHAVONNE Oreilly MD Sep 05, 2016 5:46 pm
[2016-09-05] MEDS: D5 1/2 NS 1000 ML IV SOLUTION 1,000 ML IV SCH (17:55)
[2016-09-05] MEDS: PANTOPRAZOLE 40 MG/10 ML (PROTONIX) VIAL IV SCH (17:55)
[2016-09-05] MEDS ORDERED: ENALAPRILAT 2.5 MG/2 ML (VASOTEC) VIAL IV PRN (18:00)
[2016-09-05] MEDS ORDERED: ASPI-983 PO (18:07)
[2016-09-05] MEDS ORDERED: ISOS30TA3 PO (18:07)
[2016-09-05] MEDS ORDERED: ERYT-95 PO (18:13)
--- NOTE | 2016-09-05 18:26 | ED Abdominal Pain ---
General Chief Complaint: Abdominal/GI Problems Stated Complaint: ABD PAIN,ILEUS Nursing Triage Note: Pt. presented to the ER via EMS secondary to c/o severe sudden onset abdominal pain. EMS advised the pt. has had a hx. of bowel blockages in the past and was advised if she experienced this pain to head to seek medical attention immediately. Sepsis Screen: No Definite Risk Source of Information: Patient, Spouse History of Present Illness Time Seen By Provider: 14:14 Initial Comments PT ARRIVES VIA EMS FROM HOME STATES SHE HAD BEEN NPO SINCE LAST NIGHT FOR OUTPATIENT ULTRASOUND/VASCULAR TESTS ON LEG TODAY. WHEN SHE WAS DONE WITH HER TESTS, SHE WENT TO [facility]ex AT [facility] AND ATE A FAIRLY LARGE MEAL AT 1315, SHE BEGAN TO HAVE SUDDEN SEVERE ABDOMINAL PAIN--MOSTLY ALL ACROSS LOWER ABDOMEN C/O NAUSEA AND EMS GAVE ZOFRAN PT HAD BM YESTERDAY AM, NONE TODAY. HAS NOT BEEN PASSING GAS TODAY PT HAS HAD INTERMITTENT UPPER ABDOMINAL PAIN X [address] PAREDES'S OFFICE AND TREATED FOR POSSIBLE SHINGLES WITHOUT RASH PT HAD A BOWEL OBSTRUCTION IN THE PAST AND THIS FEELS THE SAME. PCP: DR. PAREDES GENERAL SURGEON: DR. SHELTON CV SURGEON: DR. PEREZ AT [facility] Allergies and Home Medications Allergies Coded Allergies: codeine (Unverified Allergy, Mild, 02/15/09) Home Medications Aspirin 81 Mg Tablet.dr 81 MG PO DAILY (Reported) Atorvastatin Calcium 40 Mg Tablet 40 MG PO DAILY (Reported) Dicyclomine HCl 10 Mg Capsule 40 MG PO TID PRN PRN ABDOMINAL PAIN (Reported) TAKES 4 (10 MG) CAPSULES Erythromycin Base 250 Mg Tablet 250 MG PO BID PRN PRN GI UPSET (Reported) Famotidine 20 Mg Tablet 20 MG PO DAILY (Reported) Isosorbide Mononitrate 30 Mg Tab.er.24h 30 MG PO DAILY (Reported) Lisinopril 10 Mg Tablet 10 MG PO DAILY (Reported) Loratadine 10 Mg Tab 10 MG PO DAILY (Reported) Nortriptyline HCl 50 Mg Capsule 50 MG PO DAILY (Reported) Review of Systems Constitutional: no symptoms reportedNo chills, No fever EENTM: No Symptoms Reported Respiratory: No Symptoms Reported Cardiovascular: No Symptoms Reported Gastrointestinal: See HPI Abdominal Pain ConstipatedDenies Diarrhea, NauseaDenies Vomiting Genitourinary: No Symptoms Reported Musculoskeletal: no symptoms reported Skin: no symptoms reported Psychiatric/Neurological: No Symptoms Reported Endocrine: No Symptoms Reported Hematologic/Lymphatic: No Symptoms Reported Past Tgmoejp-Ihqajs-Orwyef Hx Patient Social History Alcohol Use: Denies Use Recreational Drug Use: No Smoking Status: Current Everyday Smoker (1 PPD) Type Used: Cigarettes Recent Foreign Travel: No Contact w/Someone Who Travel: No Recent Infectious Disease Expo: No Recent Hopitalizations: No Physical Abuse Screen: No Sexual Abuse: No Immunizations Up To Date Tetanus Booster (TDap): Less than 5yrs Date of Pneumonia Vaccine: Jun 19, 2016 Date of Influenza Vaccine: Jun 19, 2016 Seasonal Allergies Seasonal Allergies: No Surgeries HX Surgeries: Yes (BOWEL RESECTION FOR OBSTRUCTION; CARDIAC CATH-NO INTERVENTION; CATARACTS; HYST/USO; D&C X 2; EGD/COLONOSCOPIES; ) Surgeries: Abdominal, Adenoidectomy, Appendectomy, Bowel Surgery, Cardiac, Eye Surgery, Gallbladder, 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, Oophorectomy, Tonsillectomy Respiratory Hx Respiratory Disorders: No Cardiovascular Hx Cardiac Disorders: Yes (CARDIAC CATH-NO INTERVENTION) Cardiac Disorders: Coronary Artery Disease, High Cholesterol, Hypertension Neurological Hx Neurological Disorders: No 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 System 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 Disorders: Yes (HYST-HAS 1 OVARY) 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 Genitourinary Hx Genitourinary Disorders: No Gastrointestinal Hx Gastrointestinal Disorders: Yes (EOSINPHILIC ENTERITITS; SBO) Gastrointestinal Disorders: Gastrointestinal Bleed, Obstructive Bowel Musculoskeletal Hx Musculoskeletal Disorders: Yes (ROTATOR CUFF PAIN) Endocrine Hx Endocrine Disorders: No HEENT HX ENT Disorders: Yes HEENT Disorders: Cataract Loss of Vision: Bilateral Cancer Hx Cancer: No Psychosocial Hx Psychiatric Problems: No Integumentary HX Skin/Integumentary Disorder: No Blood Transfusions Hx Blood Disorders: No Adverse Reaction to a Blood Tr: No Physical Exam Vital Signs VS - Last 72 Hours, by Label 09/05/16 14:15 Temp 97.7 Pulse 76 Resp 14 B/P 129/64 O2 Delivery Room Air Capillary Refill : Less Than 3 Seconds General Appearance: other (ANXIOUS, MOANING, HOLDING ABDOMEN) thin HEENT: PERRL/EOMI Neck: normal inspection Respiratory: normal breath sounds no respiratory distress no accessory muscle use Cardiovascular: normal peripheral pulses regular rate, rhythm no edema no JVD no murmur Gastrointestinal: soft no organomegaly no pulsatile mass abnormal bowel sounds (HYPERACTIVE, HIGH-PTICHED. )No distended, No rebound, tenderness ( DIFFUSE TENDERNESS, BUT MOST TENDER ACROSS LOWER ABDOMEN. 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 nml as tested no motor/sensory deficits alert oriented x 3 Skin: normal color warm/dryNo rash Focused Exam Lactic Acid Level Laboratory Tests Test 09/05/16 14:20 Alanine Aminotransferase (ALT/SGPT) 12U/L (0-55) Albumin 4.1G/DL (3.2-4.5) Alkaline Phosphatase 76U/L (40-136) Amylase Level 77U/L (25-125) Anion Gap 12MMOL/L (5-14) Aspartate Amino Transf (AST/SGOT) 14U/L (5-34) BUN/Creatinine Ratio 16 Blood Urea Nitrogen 16MG/DL (7-18) Calcium Level 9.4MG/DL (8.5-10.1) Carbon Dioxide Level 21MMOL/L (21-32) Chloride Level 109MMOL/L (98-107) H Creatinine 1.02MG/DL (0.60-1.30) Estimat Glomerular Filtration Rate 54 Glucose Level 124MG/DL (70-105) H Lipase 28U/L (8-78) Potassium Level 4.1MMOL/L (3.6-5.0) Sodium Level 142MMOL/L (135-145) Total Bilirubin 0.4MG/DL (0.1-1.0) Total Protein 7.0G/DL (6.4-8.2) Progress/Results/Core Measures Results/Orders Lab Results Laboratory Tests Test 09/05/16 14:20 Range/Units Alanine Aminotransferase (ALT/SGPT) 12 0-55 U/L Albumin 4.1 3.2-4.5 G/DL Alkaline Phosphatase 76 40-136 U/L Amylase Level 77 25-125 U/L Anion Gap 12 5-14 MMOL/L Aspartate Amino Transf (AST/SGOT) 14 5-34 U/L BUN/Creatinine Ratio 16 Basophils # (Auto) 0.1 0.0-0.1 10^3/uL Basophils (%) (Auto) 0 0-10 % Blood Urea Nitrogen 16 7-18 MG/DL Calcium Level 9.4 8.5-10.1 MG/DL Carbon Dioxide Level 21 21-32 MMOL/L Chloride Level 109 H 98-107 MMOL/L Creatinine 1.02 0.60-1.30 MG/DL Eosinophils # (Auto) 0.2 0.0-0.3 10^3/uL Eosinophils (%) (Auto) 1 0-10 % Estimat Glomerular Filtration Rate 54 Glucose Level 124 H 70-105 MG/DL Hematocrit 40 35-52 % Hemoglobin 13.6 11.5-16.0 G/DL Lipase 28 8-78 U/L Lymphocytes # (Auto) 2.4 1.0-4.0 X 10^3 Lymphocytes (%) (Auto) 19 12-44 % Mean Corpuscular Hemoglobin 32 25-34 PG Mean Corpuscular Hemoglobin Concent 34 32-36 G/DL Mean Corpuscular Volume 95 80-99 FL Mean Platelet Volume 10.3 7.4-10.4 FL Monocytes # (Auto) 0.7 0.0-1.0 X 10^3 Monocytes (%) (Auto) 6 0-12 % Neutrophils # (Auto) 9.5 H 1.8-7.8 X 10^3 Neutrophils (%) (Auto) 74 42-75 % Platelet Count 307 130-400 10^3/uL Potassium Level 4.1 3.6-5.0 MMOL/L Red Blood Count 4.26 L 4.35-5.85 10^6/uL Red Cell Distribution Width 13.9 10.0-14.5 % Sodium Level 142 135-145 MMOL/L Total Bilirubin 0.4 0.1-1.0 MG/DL Total Protein 7.0 6.4-8.2 G/DL White Blood Count 12.8 H 4.3-11.0 10^3/uL My Orders Orders-MICHAEL,THEO K DO Saline Lock/Iv-Start (09/05/16 14:19) Amylase (09/05/16 14:19) Cbc With Automated Diff (09/05/16 14:19) Comprehensive Metabolic Panel (09/05/16 14:19) Lipase (09/05/16 14:19) Ua Culture If Indicated (09/05/16 14:19) Ct Abdomen/Pelvis W (09/05/16 14:19) Acute Abd Series (09/05/16 14:19) Fentanyl Injection (Sublimaze Injection (09/05/16 14:19) Saline Lock/Iv-Start (09/05/16 14:19) Lactated Ringers (Lr 1000 Ml Iv Solution (09/05/16 14:19) Iohexol Injection (Omnipaque 350 Mg/Ml 1 (09/05/16 15:15) Ns (Ivpb) (Sodium Chloride 0.9% Ivpb Bag (09/05/16 15:15) Fentanyl Injection (Sublimaze Injection (09/05/16 15:31) Medications Given in ED Current Medications Medications Dose Ordered Sig/Toby Route Start Time Stop Time Status Last Admin Dose Admin Iohexol 100 ml ONCE ONCE IV 09/05/16 15:15 09/05/16 15:16 DC 09/05/16 15:12 100 ML Lactated Ringer's 1,000 ml @ 0 mls/hr Q0M ONCE IV 09/05/16 14:19 09/05/16 14:22 DC 09/05/16 14:29 0 MLS/HR Sodium Chloride 100 ml ONCE ONCE IV 09/05/16 15:15 09/05/16 15:16 DC 09/05/16 15:12 80 ML Vital Signs/I&O Vital Sign - Last 12Hours 09/05/16 14:15 Temp 97.7 Pulse 76 Resp 14 B/P 129/64 O2 Delivery Room Air Blood Pressure Mean: 87 Progress Note : Progress Note PAIN AND NAUSEA EASED WITH MEDICATIONS Diagnostic Imaging Comments ACUTE ABDOMEN XRAYS--NON-SPECIFIC BOWEL GAS PATTERN CT ABDOMEN/PELVIS--NO OBSTRUCTION; ADYNAMIC ILEUS PER RADIOLOGIST REPORTS @ 1552 Reviewed: Reviewed by Me Departure Communication Progress Notes 1552--PAGED DR. SHELTON, SURGEON BONDERIZER OPERATOR [id number]--SPOKE WITH DR. SHELTON, ACCEPTS PT FOR ADMIT. Impression Impression: Primary Impression: ABDOMINAL PAIN Additional Impression: Ileus Disposition: ADMITTED INPATIENT Condition: Improved Decision to Admit Reason: Admit from ER (General) Decision to Admit/Date: Sep 05, 2016 Time/Decision to Admit Time: 15:55 Departure-Patient Inst. Referrals: CHRIS PAREDES MD (PCP) Primary Care Physician THEO RODRIGUEZ DO Sep 05, 2016 18:26
[2016-09-05 19:03] LABS: BILIRUBIN,URINE NEGATIVE (NEGATIVE); KETONES,URINE NEGATIVE (NEGATIVE); LEUKOCYTE ESTERASE ,URINE NEGATIVE (NEGATIVE); NITRITE,URINE NEGATIVE (NEGATIVE); PH,URINE 5 (5-9); PROTEIN,URINE 1+ (NEGATIVE); UROBILINOGEN,URINE NORMAL (NORMAL)
[2016-09-05 19:14] LABS: WBC,URINE 0-2 /HPF
[2016-09-05] MEDS: fentaNYL INJECTION 100 MCG/2 ML AMP IV PRN ×2 (19:55→22:23)
[2016-09-05 20:00] VITALS: BP 162/76
[2016-09-06] VITALS (8 sets, daily range): BP systolic 126–174; BP diastolic 60–81
[2016-09-06] MEDS: D5 1/2 NS 1000 ML IV SOLUTION 1,000 ML IV SCH ×5 (00:49→22:26)
[2016-09-06] MEDS: fentaNYL INJECTION 100 MCG/2 ML AMP IV PRN ×5 (05:17→22:29)
[2016-09-06 06:17] LABS: BASOPHILS % (AUTO) 0 % (0-10); EOSINOPHILS # (AUTO) 0.2 10^3/uL (0.0-0.3); EOSINOPHILS % (AUTO) 1 % (0-10); LYMPHOCYTES # (AUTO) 2.2 X 10^3 (1.0-4.0); LYMPHOCYTES % (AUTO) 14 % (12-44); MEAN CORPUSCULAR HEMOGLOBIN 31 PG (25-34); MEAN CORPUSCULAR HGB CONC 33 G/DL (32-36); MEAN CORPUSCULAR VOLUME 95 FL (80-99); MEAN PLATELET VOLUME 10.7 FL (7.4-10.4); MONOCYTES # (AUTO) 0.9 X 10^3 (0.0-1.0); MONOCYTES % (AUTO) 6 % (0-12); NEUTROPHILS # (AUTO) 12.3 X 10^3 (1.8-7.8); NEUTROPHILS % (AUTO) 79 % (42-75); PLATELET COUNT 259 10^3/uL (130-400); RED CELL DISTRIBUTION WIDTH 13.9 % (10.0-14.5); WHITE BLOOD COUNT 15.6 10^3/uL (4.3-11.0)
[2016-09-06 06:39] LABS: ANISOCYTOSIS SLIGHT; BAND NEUTROPHILS 0 %; BASOPHILS % (MANUAL) 0 %; EOSINOPHILS % (MANUAL) 0 %; LYMPHOCYTES % (MANUAL) 12 %; NEUTROPHILS % (MANUAL) 78 %; REACTIVE LYMPHOCYTES 6 %
[2016-09-06 06:45] LABS: ALANINE AMINOTRANSFERASE 13 U/L (0-55); ALBUMIN 3.4 G/DL (3.2-4.5); ANION GAP 9 MMOL/L (5-14); ASPARTATE AMINO TRANSFERASE 13 U/L (5-34); BILIRUBIN,TOTAL 0.2 MG/DL (0.1-1.0); BLOOD UREA NITROGEN 13 MG/DL (7-18); BUN/CREATININE RATIO 15; CALCIUM 8.3 MG/DL (8.5-10.1); CARBON DIOXIDE 21 MMOL/L (21-32); CHLORIDE 107 MMOL/L (98-107); CREATININE SERUM 0.88 MG/DL (0.60-1.30); GFR ESTIMATED > 60; GLUCOSE 133 MG/DL (70-105); POTASSIUM 3.9 MMOL/L (3.6-5.0); SODIUM 137 MMOL/L (135-145); TOTAL PROTEIN 5.9 G/DL (6.4-8.2)
--- NOTE | 2016-09-06 08:10 | Progress Note (SOAP) ---
Subjective Subjective/Events-last exam Abdominal pain better; has passed some flatus. Minimal output from NG Review of Systems General: No Chills, No Night Sweats, No Fatigue, No Malaise HEENT: No Head Aches, No Eye Pain, No Ear Pain, No Dysphasia, No Sinus Congestion, No Post Nasal Drip, No Sore Throat Pulmonary: No Dyspnea, No Cough, No Pleuritic Chest Pain Gastrointestinal: : Abdominal Pain Genitourinary: No Dysuria, No Frequency, No Incontinence, No Hematuria, No Retention Musculoskeletal: No: arm pain, back pain, foot pain, hand pain, leg pain, neck pain, other, shoulder pain Neurological: No: Change in speech, Confusion, Incoordination, Numbness, Other , Seizures, Weakness Objective Exam Vital Signs Date Time Temp Pulse Resp B/P Pulse Ox O2 Delivery O2 Flow Rate FiO2 09/06/16 04:00 99.5 81 18 140/68 95 Room Air 09/06/16 00:06 96.5 81 18 126/60 95 Room Air 09/05/16 20:00 97.0 87 18 162/76 97 Room Air 09/05/16 17:25 Room Air 09/05/16 17:25 97.4 88 18 135/63 95 Room Air 09/05/16 16:50 67 14 98 09/05/16 14:15 97.7 76 14 129/64 Room Air I & O 09/06/16 07:00 Intake Total 0 ml Output Total 1175 ml Balance -1175 ml Capillary Refill : Less Than 3 Seconds General Appearance: Anxious Neck: Normal Inspection Respiratory: Lungs Clear Cardiovascular: Regular Rate, Rhythm Gastrointestinal: non tender soft Extremity: Normal Inspection Neurologic/Psychiatric: Alert Oriented x3 Skin: Warm/Dry Results Lab Laboratory Tests 09/05/16 14:20: Alanine Aminotransferase (ALT/SGPT) 12, Albumin 4.1, Alkaline Phosphatase 76, Amylase Level 77, Anion Gap 12, Aspartate Amino Transf (AST/SGOT) 14, BUN/ Creatinine Ratio 16, Basophils # (Auto) 0.1, Basophils (%) (Auto) 0, Blood Urea Nitrogen 16, Calcium Level 9.4, Carbon Dioxide Level 21, Chloride Level 109H, Creatinine 1.02, Eosinophils # (Auto) 0.2, Eosinophils (%) (Auto) 1, Estimat Glomerular Filtration Rate 54, Glucose Level 124H, Hematocrit 40, Hemoglobin 13.6, Lipase 28, Lymphocytes # (Auto) 2.4, Lymphocytes (%) (Auto) 19, Mean Corpuscular Hemoglobin 32, Mean Corpuscular Hemoglobin Concent 34, Mean Corpuscular Volume 95, Mean Platelet Volume 10.3, Monocytes # (Auto) 0.7, Monocytes (%) (Auto) 6, Neutrophils # (Auto) 9.5H, Neutrophils (%) (Auto) 74, Platelet Count 307, Potassium Level 4.1, Red Blood Count 4.26L, Red Cell Distribution Width 13.9, Sodium Level 142, Total Bilirubin 0.4, Total Protein 7.0, White Blood Count 12.8H 09/05/16 18:18: Urine Bacteria TRACE, Urine Bilirubin NEGATIVE, Urine Casts NONE, Urine Clarity CLEAR, Urine Color YELLOW, Urine Crystals NONE, Urine Culture Indicated NO, Urine Glucose (UA) NEGATIVE, Urine Ketones NEGATIVE, Urine Leukocyte Esterase NEGATIVE, Urine Mucus NEGATIVE, Urine Nitrite NEGATIVE, Urine Protein 1+H, Urine RBC 0-2, Urine RBC (Auto) 1+H, Urine Specific Andrews 1.005L, Urine Squamous Epithelial Cells 2-5, Urine Urobilinogen NORMAL, Urine WBC 0-2, Urine pH 5 09/06/16 05:40: Alanine Aminotransferase (ALT/SGPT) 13, Albumin 3.4, Alkaline Phosphatase 73, Anion Gap 9, Aspartate Amino Transf (AST/SGOT) 13, BUN/Creatinine Ratio 15, Basophils # (Auto) 0.0, Basophils (%) (Auto) 0, Blood Urea Nitrogen 13, Calcium Level 8.3L, Carbon Dioxide Level 21, Chloride Level 107, Creatinine 0.88, Eosinophils # (Auto) 0.2, Eosinophils (%) (Auto) 1, Estimat Glomerular Filtration Rate > 60, Glucose Level 133H, Hematocrit 37, Hemoglobin 12.1, Lymphocytes # (Auto) 2.2, Lymphocytes (%) (Auto) 14, Mean Corpuscular Hemoglobin 31, Mean Corpuscular Hemoglobin Concent 33, Mean Corpuscular Volume 95, Mean Platelet Volume 10.7H, Monocytes # (Auto) 0.9, Monocytes (%) (Auto) 6, Neutrophils # (Auto) 12.3H, Neutrophils (%) (Auto) 79H, Platelet Count 259, Potassium Level 3.9, Red Blood Count 3.90L, Red Cell Distribution Width 13.9, Sodium Level 137, Total Bilirubin 0.2, Total Protein 5.9L, White Blood Count 15.6H, Anisocytosis SLIGHT, Atypical Lymphocytes , Band Neutrophils 0, Basophils % (Manual) 0, Eosinophils % (Manual) 0, Lymphocytes % (Manual) 12, Monocytes % (Manual) 4, Neutrophils % (Manual) 78, Reactive Lymphocytes 6 Assessment/Plan Assessment/Plan Assess & Plan/Chief Complaint Partial small bowel obstruction/Ileus. Left iliac artery stenosis. Will use reglan and mag. citrate. Final Diagnosis Partial small bowel obstruction. Left iliac artery stenosis Clinical Quality Measures DVT/VTE Risk/Contraindication: VTE Present on Admission: No Risk Factor Score Per Nursin RFS Level Per Nursing on Admit: 3=High SHAVONNE SHELTON MD Sep 06, 2016 8:10 am
[2016-09-06] MEDS ORDERED: MAGNESIUM CITRATE 300 ML BTL NG NR (08:15)
[2016-09-06] MEDS: PANTOPRAZOLE 40 MG/10 ML (PROTONIX) VIAL IV SCH (09:03)
[2016-09-06] MEDS: NICOTINE 7 MG (NICODERM) PATCH TD SCH (09:04)
[2016-09-06] MEDS: ASPIRIN 81 MG CHEW (CHILDREN'S ASA) PO SCH (09:04)
--- NOTE | 2016-09-06 09:32 | Consultation ---
History of Present Illness History of Present Illness Patient Consulted On(jojo/time) 09/06/16 09:32 Date of Admission 09/05/16 Reason for Visit: ABDOMINAL PAIN History of Present Illness PT WAS ADMITTED TO THE HOSPITAL AFTER HAVING SEVERE ABDOMINAL PAIN WHICH STARTED ABOUT 2 HOURS AFTER EATING AT [employer]. SHE REPORTS THAT SHE HAD BEEN FEELING FAIRLY WELL, ATE A DINNER WHICH IS NOT USUAL - SPAGHETTI AND MEATBALLS, AND THEN ABOUT 30 MINUTES TO 1 HOUR LATER STARTED TO FEEL SICK TO HER STOMACH, AND ABOUT 2HOURS LATER HAD SEVERE PAIN. Allergies and Home Medications Allergies Coded Allergies: codeine (Verified Allergy, Mild, 09/05/16) Home Medications Aspirin 81 Mg Tablet.dr 81 MG PO DAILY (Reported) Atorvastatin Calcium 40 Mg Tablet 40 MG PO DAILY (Reported) Dicyclomine HCl 10 Mg Capsule 40 MG PO TID PRN PRN ABDOMINAL PAIN (Reported) TAKES 4 (10 MG) CAPSULES Erythromycin Base 250 Mg Tablet 250 MG PO BID PRN PRN GI UPSET (Reported) Famotidine 20 Mg Tablet 20 MG PO DAILY (Reported) Isosorbide Mononitrate 30 Mg Tab.er.24h 30 MG PO DAILY (Reported) Lisinopril 10 Mg Tablet 10 MG PO DAILY (Reported) Loratadine 10 Mg Tab 10 MG PO DAILY (Reported) Nortriptyline HCl 50 Mg Capsule 50 MG PO DAILY (Reported) Past Acccxqj-Dmyjbv-Hzchgm Hx Patient Social History Alcohol Use: Denies Use Recreational Drug Use: No Smoking Status: Current Everyday Smoker (1 PPD) Type Used: Cigarettes Recent Foreign Travel: No Contact w/Someone Who Travel: No Recent Infectious Disease Expo: No Recent Hopitalizations: No Physical Abuse Screen: No Sexual Abuse: No Immunizations Up To Date Tetanus Booster (TDap): Less than 5yrs Date of Pneumonia Vaccine: Jun 19, 2016 Date of Influenza Vaccine: Jun 19, 2016 Seasonal Allergies Seasonal Allergies: No Surgeries HX Surgeries: Yes (BOWEL RESECTION FOR OBSTRUCTION; CARDIAC CATH-NO INTERVENTION; CATARACTS; HYST/USO; D&C X 2; EGD/COLONOSCOPIES; ) Surgeries: Abdominal, Adenoidectomy, Appendectomy, Bowel Surgery, Cardiac, Eye Surgery, Gallbladder, 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, Oophorectomy, Tonsillectomy Respiratory Hx Respiratory Disorders: No Cardiovascular Hx Cardiac Disorders: Yes (CARDIAC CATH-NO INTERVENTION) Cardiac Disorders: Coronary Artery Disease, High Cholesterol, Hypertension Neurological Hx Neurological Disorders: No 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 System 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 Disorders: Yes (HYST-HAS 1 OVARY) 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 Genitourinary Hx Genitourinary Disorders: No Gastrointestinal Hx Gastrointestinal Disorders: Yes (EOSINPHILIC ENTERITITS; SBO) Gastrointestinal Disorders: Gastrointestinal Bleed, Obstructive Bowel Musculoskeletal Hx Musculoskeletal Disorders: Yes (ROTATOR CUFF PAIN) Endocrine Hx Endocrine Disorders: No HEENT HX ENT Disorders: Yes HEENT Disorders: Cataract Loss of Vision: Bilateral Cancer Hx Cancer: No Psychosocial Hx Psychiatric Problems: No Integumentary HX Skin/Integumentary Disorder: No Blood Transfusions Hx Blood Disorders: No Adverse Reaction to a Blood Tr: No Reviewed Nursing Assessment Reviewed/Agree w Nursing PMH: Yes Family Medical History Significant Family History: Heart Disease, Cancer Family Medial History: Cardiovascular disease 19 FATHER Neoplasm 19 MOTHER (colon cancer) G8 SISTER (uterine cancer) Respiratory disorder 19 FATHER Review of Systems-General Constitutional: No chills, No fever, malaise weakness EENTM: No hoarseness, No mouth pain, No throat pain, No throat swelling Respiratory: No cough, No dyspnea on exertion, No short of breath Cardiovascular: No chest pain, No edema, No palpitations Gastrointestinal: abdominal painNo constipation, nausea Genitourinary: no symptoms reported Musculoskeletal: no symptoms reported Skin: no symptoms reported Psychiatric/Neurological: Anxiety Physical Exam-General Problems Physical Exam Vital Signs Vital Sign - Last 12Hours 09/05/16 09/05/16 14:15 16:50 Temp 97.7 Pulse 76 Resp 14 B/P 129/64 Pulse Ox 98 O2 Delivery Room Air Capillary Refill : Less Than 3 Seconds General Appearance: WD/WN moderate distress Eyes: Bilateral Eye EOMI, Bilateral Eye Normal Inspection, Bilateral Eye PERRL HEENT: PERRL/EOMI pharynx normal Neck: non-tender normal inspection Respiratory: chest non-tender lungs clear normal breath sounds no respiratory distress no accessory muscle use Cardiovascular: regular rate, rhythm no edema Gastrointestinal: soft no organomegaly no pulsatile mass other (TTP OVER RIGHT LOWER ABDOMEN, NG TUBE IN PLACE, + BOWEL SOUNDS) Back: normal inspection no vertebral tenderness Extremities: normal range of motion non-tender normal inspection no pedal edema no calf tenderness normal capillary refill Neurologic/Psychiatric: therapeutic dietitian II-XII nml as tested no motor/sensory deficits alert normal mood/affect oriented x 3 Skin: normal color Lymphatic: no adenopathy Assessment/Plan Assessment/Plan Admission Diagnosis/Plan BOWEL OBSTRUCTION/ILEUS INFLAMMATORY BOWEL DISEASE HYPERTENSION GASTROPARESIS ABDOMINAL PAIN NAUSEA PT ADMITTED TO DR. SHELTON FOR BOWEL OBSTRUCTION - IMPROVED SYMPTOMS WITH NG TUBE PLACEMENT - DEFER TO DR. SHELTON. PT HAS HAD SEVERAL COLONOSCOPES - AND MAY END UP NEEDING ADHESIONS LYSED IF HER SYMPTOMS DO NOT COMPLETELY RESOLVE. HYPERTENSION - RESTART HOME MEDICATIONS. GASTROPARESIS - WILL CONSIDER RESTARTING ERYTHROMYCIN UPON DISCHARGE. ABDOMINAL PAIN AND NAUSEA - MONITOR SYMPTOMS - USE PAIN MEDICATION PRN FOR PAIN CONTROL, USE ZOFRAN FOR NAUSEA. Clinical Quality Measures DVT/VTE Risk/Contraindication: VTE Present on Admission: No Risk Factor Score Per Nursin RFS Level Per Nursing on Admit: 3=High CHRIS PAREDES MD Sep 06, 2016 09:32
[2016-09-06] MEDS: METOCLOPRAMIDE INJ 10 MG/2 ML (REGLAN) IVP SCH ×3 (11:11→22:25)
[2016-09-06] MEDS ORDERED: DICYCLOMINE 10 MG (BENTYL) CAP PO PRN (17:30)
[2016-09-06] MEDS ORDERED: ENOXAPARIN 40 MG/0.4 ML (LOVENOX) SYR ONE (18:09)
[2016-09-06] MEDS: ENOXAPARIN 40 MG/0.4 ML (LOVENOX) SYR SC SCH (18:14)
[2016-09-07] MEDS: METOCLOPRAMIDE INJ 10 MG/2 ML (REGLAN) IVP SCH ×3 (05:57→17:38)
[2016-09-07] MEDS: D5 1/2 NS 1000 ML IV SOLUTION 1,000 ML IV SCH (05:57)
--- NOTE | 2016-09-07 07:34 | Progress Note (SOAP) ---
Subjective Subjective/Events-last exam adynamic ileus. Patient feeling much better today. Patient had 2 bowel movements the last one performed. Patient taking fluids today abdomen is soft Objective Exam Vital Signs Date Time Temp Pulse Resp B/P (MAP) Pulse Ox O2 Delivery O2 Flow Rate FiO2 09/06/16 23:19 98.5 87 20 135/63 93 Room Air 09/06/16 20:00 98.9 93 20 132/69 96 Room Air 09/06/16 16:30 138/80 09/06/16 16:00 98.1 84 16 174/75 97 Room Air 09/06/16 11:46 98.0 82 20 136/81 94 Room Air 09/06/16 08:00 98.0 86 12 142/68 94 Room Air I & O 09/07/16 07:00 Intake Total 2125 ml Output Total 4650 ml Balance -2525 ml Capillary Refill : Less Than 3 Seconds General Appearance: No Apparent Distress, WD/WN Respiratory: Chest Non Tender, No Accessory Muscle Use, No Respiratory Distress Cardiovascular: Regular Rate, Rhythm, No Murmur Gastrointestinal: non tender, soft Assessment/Plan Assessment/Plan Assess & Plan/Chief Complaint adynamic ileus. NG tube removed last night. Patient had bowel movements this this . Patient drinking fluids. Patient not having any abdominal pain. Adynamic ileus Clinical Quality Measures DVT/VTE Risk/Contraindication: VTE Present on Admission: No Risk Factor Score Per Nursin RFS Level Per Nursing on Admit: 3=High FEDERICO QUIJANO DO Sep 07, 2016 07:34
[2016-09-07 08:51] VITALS: BP 132/75
[2016-09-07] MEDS: PANTOPRAZOLE 40 MG/10 ML (PROTONIX) VIAL IV SCH (08:58)
[2016-09-07] MEDS: NICOTINE 7 MG (NICODERM) PATCH TD SCH (08:58)
[2016-09-07] MEDS: lisINopril 10 MG (PRINIVIL) TAB PO SCH (08:59)
[2016-09-07] MEDS: ASPIRIN 81 MG CHEW (CHILDREN'S ASA) PO SCH (08:59)
[2016-09-07] MEDS: ISOSORBIDE MONONITRATE 30 MG (IMDUR) TAB PO SCH (08:59)
[2016-09-07] MEDS: NORTRIPTYLINE 25 MG (PAMELOR) CAP PO SCH (08:59)
[2016-09-07] MEDS: FAMOTIDINE 20 MG (PEPCID) TABLET PO SCH (08:59)
[2016-09-07] MEDS: NICOTINE PATCH REMOVAL TP SCH (08:59)
--- NOTE | 2016-09-07 14:17 | Progress Note (SOAP) ---
Subjective Subjective/Events-last exam good response to magnesium citrate with bowel movements and passage of flatus. NG tube removed last night and no nausea. Abdominal pain almost resolved. Review of Systems General: No Chills, No Night Sweats, No Fatigue, No Malaise HEENT: No Head Aches, No Eye Pain, No Ear Pain, No Dysphasia, No Sinus Congestion, No Post Nasal Drip, No Sore Throat Pulmonary: No Dyspnea, No Cough, No Pleuritic Chest Pain Cardiovascular: No: Chest Pain, Edema, Lt Headedness, Orthopnea, Palpitations, Paroxysmal Noc. Dyspnea Gastrointestinal: No: Abdominal Pain, Constipation, Diarrhea, Hematochezia, Melena, Nausea, Vomiting Genitourinary: No Dysuria, No Frequency, No Incontinence, No Hematuria, No Retention Musculoskeletal: No: arm pain, back pain, foot pain, hand pain, leg pain, neck pain, other, shoulder pain Neurological: No: Change in speech, Confusion, Incoordination, Numbness, Other , Seizures, Weakness Objective Exam Vital Signs Date Time Temp Pulse Resp B/P (MAP) Pulse Ox O2 Delivery O2 Flow Rate FiO2 09/07/16 08:51 96.5 83 16 132/75 95 Room Air 09/06/16 23:19 98.5 87 20 135/63 93 Room Air 09/06/16 20:00 98.9 93 20 132/69 96 Room Air 09/06/16 16:30 138/80 09/06/16 16:00 98.1 84 16 174/75 97 Room Air I & O 09/07/16 07:00 Intake Total 2125 ml Output Total 4650 ml Balance -2525 ml Capillary Refill : Less Than 3 Seconds General Appearance: No Apparent Distress Neck: Normal Inspection Respiratory: Lungs Clear Cardiovascular: Regular Rate, Rhythm Gastrointestinal: non tender, soft Extremity: Normal Inspection Neurologic/Psychiatric: Alert, Oriented x3 Skin: Warm/Dry Assessment/Plan Assessment/Plan Assess & Plan/Chief Complaint Partial small bowel obstruction/Ileus. Left iliac artery stenosis. Will use reglan and mag. citrate. abdominal pain due to partial small bowel obstruction/ileus, currently resolved. Will advance diet and if tolerated discharge in a.m. Final Diagnosis partial small bowel obstruction. Left iliac artery stenosis. Clinical Quality Measures DVT/VTE Risk/Contraindication: VTE Present on Admission: No Risk Factor Score Per Nursin RFS Level Per Nursing on Admit: 3=High SHAVONNE SHELTON MD Sep 07, 2016 2:17 pm
[2016-09-07] MEDS ORDERED: MAGNESIUM CITRATE 300 ML BTL PO NR (15:00)
[2016-09-07 16:00] VITALS: BP 120/74
[2016-09-07] MEDS: ENOXAPARIN 40 MG/0.4 ML (LOVENOX) SYR SC SCH (17:38)
[2016-09-08] VITALS: BP 128/67
[2016-09-08] MEDS: METOCLOPRAMIDE INJ 10 MG/2 ML (REGLAN) IVP SCH ×2 (00:22→06:15)
[2016-09-08 03:50] VITALS: BP 126/69
--- NOTE | 2016-09-08 07:36 | Progress Note (SOAP) ---
Subjective Subjective/Events-last exam patient feeling much better today. Abdomen is soft. Patient had bowel movements last night. Patient would like to go home. Diagnosis partial small bowel obstruction. Left iliac artery stenosis Objective Exam Vital Signs Date Time Temp Pulse Resp B/P (MAP) Pulse Ox O2 Delivery O2 Flow Rate FiO2 09/08/16 03:50 97.3 88 18 126/69 94 Room Air 09/08/16 00:00 96.9 78 18 128/67 95 Room Air 09/07/16 16:00 96.6 90 18 120/74 96 Room Air 09/07/16 08:51 96.5 83 16 132/75 95 Room Air I & O 09/08/16 07:00 Intake Total 1710 ml Output Total 1450 ml Balance 260 ml Capillary Refill : Less Than 3 Seconds General Appearance: No Apparent Distress, WD/WN HEENT: Normal ENT Inspection Neck: Normal Inspection Respiratory: Chest Non Tender, Lungs Clear, Normal Breath Sounds, No Accessory Muscle Use, No Respiratory Distress Cardiovascular: Regular Rate, Rhythm, No Murmur Gastrointestinal: non tender, soft Assessment/Plan Assessment/Plan Assess & Plan/Chief Complaint adynamic ileus. NG tube removed last night. Patient had bowel movements this this . Patient drinking fluids. Patient not having any abdominal pain. Adynamic ileus. . 08/2316. Partial small bowel obstruction. Left iliac artery stenosis. Patient feeling better today. Patient had bowel movements. Patient wanting to go home Clinical Quality Measures DVT/VTE Risk/Contraindication: VTE Present on Admission: No Risk Factor Score Per Nursin RFS Level Per Nursing on Admit: 3=High FEDERICO QUIJANO DO Sep 08, 2016 07:36
[2016-09-08] MEDS: ASPIRIN 81 MG CHEW (CHILDREN'S ASA) PO SCH (08:23)
[2016-09-08] MEDS: lisINopril 10 MG (PRINIVIL) TAB PO SCH (08:23)
[2016-09-08] MEDS: FAMOTIDINE 20 MG (PEPCID) TABLET PO SCH (08:23)
[2016-09-08] MEDS: NORTRIPTYLINE 25 MG (PAMELOR) CAP PO SCH (08:23)
[2016-09-08] MEDS: ISOSORBIDE MONONITRATE 30 MG (IMDUR) TAB PO SCH (08:23)
[2016-09-08] MEDS: NICOTINE 7 MG (NICODERM) PATCH TD SCH (08:23)
[2016-09-08] MEDS: NICOTINE PATCH REMOVAL TP SCH (08:24)
[2016-09-08 08:30] VITALS: BP 130/63
[2016-09-08] MEDS: PANTOPRAZOLE 40 MG/10 ML (PROTONIX) VIAL IV SCH (09:00)
--- NOTE | 2016-09-08 10:58 | Progress Note-Standard ---
Standard Progress Note Progress Notes/Assess & Plan Progress/Assessment & Plan 09/08/16:tolerated soft diet. No vomiting. Having bowel movements. No abdominal pain. Vital signs stable. Abdomen soft and nontender. Could be discharged home Final Diagnosis abdominal pain. Adynamic ileus SHAVONNE SHELTON MD Sep 08, 2016 10:58 am
--- NOTE | 2016-09-08 11:00 | Discharge Inst-Simple/Standard ---
Discharge Inst-Standard Discharge Medications New, Converted or Re-Newed RX: Other Patient Instructions/Follow Up Plan of Care/Instructions/FU: follow-up with me in 2 weeks Activity as Tolerated: Yes Discharge Diet: No Restrictions SHAVONNE SHELTON MD Sep 08, 2016 11:00 am
[2016-09-08 12:41] VITALS: BP 130/63
--- NOTE | 2016-09-08 13:00 | DISCHARGE SUMMARY ---
DATE OF ADMISSION: 09/06/2016 DATE OF DISCHARGE: 09/08/2016 DIAGNOSES: 1. Adynamic ileus. 2. Left iliac artery stenosis. This lady was admitted with acute onset of colicky abdominal pain. The initial impression was that of partial small bowel obstruction. She responded to conservative therapy and has since resumed normal bowel movements. In addition, she also has tolerated a soft diet and remains symptom free. It is therefore likely that the features were due to adynamic ileus. During the evaluation, stenosis of the left common iliac artery was discovered and she is scheduled to undergo an endovascular intervention on 09/12/2016. Job ID: [id number] Dictated Date: 09/08/2016 10:59:28 Threader Date: 09/08/2016 12:56:32/jimmy BALL
[2016-09-09] MEDS ORDERED: PANTOPRAZOLE 40 MG (PROTONIX) TAB PO SCH (07:00)
== END 2016-09-08 12:20 | disposition home or self-care (01) | DRG 328 ==
LOC: DELPENDDIS → EDUNIT# 14:08 → ER 14:09 → 4TH 16:05 → UNDOADMOB 16:05 → 4TH 17:25 → OBSVTOIN 09-06 10:55 → INTOOBSV 09-06 10:55 → UNDODISIN 09-08 12:20
PROVIDERS: ADMIT Surgery; ATTEND Surgery
PROC: 0D9470Z Drainage of Esophagogastric Junction with Drainage Device, Via Natural or Artificial Opening (ICD-10-PCS; principal; 2016-09-05)
DX: K56.69 Other intestinal obstruction (principal); K31.84 Gastroparesis; K58.9 Irritable bowel syndrome, unspecified; K59.00 Constipation, unspecified; I70.8 Atherosclerosis of other arteries; I25.10 Atherosclerotic heart disease of native coronary artery without angina pectoris; I10 Essential (primary) hypertension; J44.9 Chronic obstructive pulmonary disease, unspecified; F41.9 Anxiety disorder, unspecified; F17.210 Nicotine dependence, cigarettes, uncomplicated; E78.00 Pure hypercholesterolemia, unspecified
CPT/HCPCS: 36415; 74022; 74177; 80053; 81000; 82150; 83690; 85007; 85025; 85027; 96361; 96374; 96375; 96376; G0378

== ENCOUNTER → 2016-10-26 | Outpatient (CLI) | payer MEDICARE, OTHER ==
[~2016-10-26] MED LIST changes: +ASPI-983 PO; +ATOR40TA70 PO; +ERYT-95 PO; +ISOS30TA3 PO; +LISI10TA2 PO
--- NOTE | 2016-10-27 19:23 | Diagnostic Imaging Report ---
Bilateral screening mammogram The current study was also evaluated with a Computer Aided Detection (CAD) system. Indication: Screening. No current complaints stated on the questionnaire. COMPARISON: 05/23/13. FINDINGS: The breasts are composed of scattered fibroglandular densities. No mass, architectural distortion or suspicious cluster of calcifications seen. Allowing for technique and positional differences, no suspicious change is seen. IMPRESSION: No significant change. ACR BI-RADS Category 2: Benign findings. Result letter will be mailed to the patient. Note: At least 10% of breast cancer is not imaged by mammography. Dictated by: Dictated on workstation # [id number]
== END ==
LOC: RAD 09:52
PROVIDERS: ATTEND Family Medicine
DX: Z12.31 Encounter for screening mammogram for malignant neoplasm of breast (principal)
CPT/HCPCS: 77067

== ENCOUNTER 2016-12-17 18:44 | Emergency (ER) | payer MEDICARE, OTHER ==
[~2016-12-17] VITALS: Ht 162.6 cm; Wt 63.5 kg
--- NOTE | 2016-12-17 18:56 | ED Lower Extremity ---
General Stated Complaint: FOOT INJ Source: patient Exam Limitations: no limitations History of Present Illness Time seen by provider: 18:54 Initial Comments To ER with a left foot injury. Patient dropped a can of hair spray on it this morning. Throughout the course of the day she's had progressive left foot pain with inability to bear weight. No swelling. No fevers. She states that she had a stent placed in the left leg for peripheral vascular disease within the past month. She takes Plavix daily. Onset: this morning Severity: moderate Pain/Injury Location: left foot Method of Injury: direct blow Modifying Factors: Worse With Movement Allergies and Home Medications Allergies Coded Allergies: codeine (Verified Allergy, Mild, 09/05/16) Home Medications Aspirin 81 Mg Tablet.dr, 81 MG PO DAILY, (Reported) Atorvastatin Calcium 40 Mg Tablet, 40 MG PO DAILY, (Reported) Dicyclomine HCl 10 Mg Capsule, 40 MG PO TID PRN for ABDOMINAL PAIN, (Reported) TAKES 4 (10 MG) CAPSULES Erythromycin Base 250 Mg Tablet, 250 MG PO BID PRN for GI UPSET, (Reported) Famotidine 20 Mg Tablet, 20 MG PO DAILY, (Reported) Isosorbide Mononitrate 30 Mg Tab.er.24h, 30 MG PO DAILY, (Reported) Lisinopril 10 Mg Tablet, 10 MG PO DAILY, (Reported) Loratadine 10 Mg Tab, 10 MG PO DAILY, (Reported) Nortriptyline HCl 50 Mg Capsule, 50 MG PO DAILY, (Reported) Constitutional: see HPI EENTM: see HPI Respiratory: no symptoms reported Cardiovascular: no symptoms reported Genitourinary: no symptoms reported Musculoskeletal: see HPI Skin: no symptoms reported Psychiatric/Neurological: No Symptoms Reported Past Wvdjbid-Hfgfpr-Nsdsly Hx Patient Social History Type Used: Cigarettes Recent Foreign Travel: No Contact w/Someone Who Travel: No Recent Hopitalizations: No Immunizations Up To Date Tetanus Booster (TDap): Less than 5yrs Date of Pneumonia Vaccine: Jun 19, 2016 Date of Influenza Vaccine: Jun 19, 2016 Seasonal Allergies Seasonal Allergies: No Surgeries HX Surgeries: Yes Surgeries: Abdominal, Adenoidectomy, Appendectomy, Bowel Surgery, Cardiac, Eye Surgery, Gallbladder, 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, Oophorectomy, Tonsillectomy Respiratory Hx Respiratory Disorders: No Cardiovascular Hx Cardiac Disorders: Yes (CARDIAC CATH-NO INTERVENTION) Cardiac Disorders: Coronary Artery Disease, High Cholesterol, Hypertension Neurological Hx Neurological Disorders: No 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 System 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 Disorders: Yes (HYST-HAS 1 OVARY) 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: 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 Genitourinary Hx Genitourinary Disorders: No Gastrointestinal Hx Gastrointestinal Disorders: Yes (EOSINPHILIC ENTERITITS; SBO) Gastrointestinal Disorders: Gastrointestinal Bleed, Obstructive Bowel Musculoskeletal Hx Musculoskeletal Disorders: Yes (ROTATOR CUFF PAIN) Endocrine Hx Endocrine Disorders: No HEENT HX ENT Disorders: Yes HEENT Disorders: Cataract Loss of Vision: Bilateral Cancer Hx Cancer: No Psychosocial Hx Psychiatric Problems: No Integumentary HX Skin/Integumentary Disorder: No Blood Transfusions Hx Blood Disorders: No Adverse Reaction to a Blood Tr: No Family Medical History Significant Family History: Heart Disease, Cancer Family Medial History: Cardiovascular disease 19 FATHER Neoplasm 19 MOTHER (colon cancer) G8 SISTER (uterine cancer) Respiratory disorder 19 FATHER Physical Exam Vital Signs Vital Sign - Last 12Hours 12/17/16 18:57 Temp 98.1 Pulse 70 Resp 16 B/P (MAP) 140/86 Pulse Ox 99 Capillary Refill : General Appearance: WD/WN, no apparent distress HEENT: PERRL/EOMI, normal ENT inspection Neck: non-tender, full range of motion Respiratory: no respiratory distress, no accessory muscle use Gastrointestinal: normal bowel sounds, non tender, soft Hips: bilateral hip non-tender, bilateral hip normal inspection, bilateral hip normal range of motion Legs: bilateral leg non-tender, bilateral leg normal inspection, bilateral leg normal range of motion Knees: bilateral knee non-tender, bilateral knee normal inspection, bilateral knee normal range of motion Ankles: bilateral ankle non-tender, bilateral ankle normal inspection, bilateral ankle normal range of motion Feet: left foot pain, left foot soft tissue tenderness, left foot other (no swelling ecchymosis or erythema. Dorsalis pedis pulse is +1.) Neurologic/Psychiatric: alert, normal mood/affect, oriented x 3 Skin: normal color, warm/dry Progress/Results/Core Measures Results/Orders My Orders Orders - KELSIE MARSHALL APRN Foot, Left, 3 Views (12/17/16 18:54) Vital Signs/I&O Vital Sign - Last 12Hours 12/17/16 18:57 Temp 98.1 Pulse 70 Resp 16 B/P (MAP) 140/86 Pulse Ox 99 Departure Impression Impression: Primary Impression: Contusion of foot Additional Impression: Metatarsal fracture Disposition: 01 HOME, SELF-CARE Condition: Stable Departure-Patient Inst. Decision time for Depature: 19:28 Referrals: LUIS PAREDES DPM, HOLLY A MD (PCP/Family) Primary Care Physician VIRA LARA MD,LADARIUS KATZ MD,KEARA Garner MD Patient Instructions: Contusion (DC), Foot Fracture (DC) Add. Discharge Instructions: 1. Return to ER for any concerns 2. Wear the boot when walking for the next 2-3 weeks or as otherwise directed by orthopedics. Call an orthopedic surgeon of your choosing on Monday to make an appointment for follow-up 4. Scripts Hydrocodone/Acetaminophen ([place] 5-325 Tablet) 1 Each Tablet 1 EACH PO Q4H Y for PAIN-MODERATE TO SEVERE, #14 TAB Prov: KELSIE MARSHALL APRN 12/17/16 KELSIE MARSHALL APRN Dec 17, 2016 18:55
--- NOTE | 2016-12-17 19:30 | Diagnostic Imaging Report ---
INDICATION: Dropped a can on foot. Pain. EXAMINATION: Left foot dated 12/17/2016 FINDINGS: Three views of the foot The base of the metatarsals difficult to evaluate as they are superimposed upon each other. There is questionable irregularity noted at the base of the fourth metatarsal; correlate for point tenderness. Remaining osseous structures appear to be intact. There are no dislocations. IMPRESSION: 1. Possible nondisplaced fracture at the base of the fourth metatarsal versus superimposed osseous structures. Correlate for any point tenderness. Dictated by: Dictated on workstation # [id number]
[2016-12-17] MEDS ORDERED: HYDR-757 PO (19:39)
[2016-12-17] MEDS ORDERED: RX-HYDROCODONE/APAP 5/325 MG #4 TAB PK PO PRN (19:45)
[2016-12-17 19:47] VITALS: BP 0/0
== END 2016-12-17 19:47 | disposition home or self-care (01) ==
LOC: EDUNIT# 18:44 → ER 18:45
DX: S99.922A Unspecified injury of left foot, initial encounter (principal)
CPT/HCPCS: 73630; 99283

== ENCOUNTER → 2017-02-10 | Outpatient (CLI) | payer MEDICARE, OTHER ==
[~2017-02-10] MED LIST changes: +HYDR-757 PO
--- NOTE | 2017-02-10 14:28 | Diagnostic Imaging Report ---
INDICATION: Cough and dyspnea. COMPARISON: 03/11/2014 FINDINGS: Two views of the chest are obtained. Heart size is normal. The pulmonary vessels appear unremarkable. There is no pneumothorax, mediastinal widening or pleural fluid. Lungs are clear. The osseous structures appear unremarkable. Chronic findings of COPD are unchanged. IMPRESSION: No acute abnormality is seen. No interval change from the prior study. Dictated by: Dictated on workstation # [id number]
== END ==
LOC: RAD 10:19
PROVIDERS: ATTEND Nurse Practitioner Family
DX: R05 Cough (principal); R06.00 Dyspnea, unspecified
CPT/HCPCS: 71020

== ENCOUNTER → 2018-04-26 | Outpatient (CLI) | payer MEDICARE, OTHER ==
[~2018-04-26] MED LIST changes: +HYDR-4226 PO; -HYDR-757 PO
--- NOTE | 2018-04-26 14:33 | Diagnostic Imaging Report ---
INDICATION: [id number]-uigx history of smoking. COMPARISON: 07/28/2016 TECHNIQUE: Routine noncontrast low dose CT of the chest was performed per departmental screening purposes. FINDINGS: Evaluation of the lung reyes demonstrates multiple bilateral pulmonary micronodules. Largest reference micronodule in the left upper lobe is seen within the lateral subpleural margins and measures approximately 6-7 mm in diameter (image 65, series 4). 5 mm micronodular density is also seen within the left apex. Largest micronodule in the left lower lobe is seen within the medial posterior margins of the superior segment and measures 5 mm in diameter (image 119, series 4). Largest micronodule on the right is seen within the base of the right upper lobe and measures 5-6 mm in diameter (image 114, series 4). These all appear to be new when compared to exam dated 07/28/2016. There is also background of moderate air trapping consistent with emphysematous disease. There is no focal consolidation, pleural effusion, nor pneumothorax. Cardiomediastinal structures show normal heart size. There is no large pericardial effusion. There is moderate calcified aortic and coronary atherosclerosis. No pathologically enlarged or morphologically abnormal adenopathy is seen within the mediastinum, anny, nor axilla. Osseous structures show no acute abnormalities. No lytic or blastic bony lesions are seen. Included portions of the upper abdomen are unremarkable. IMPRESSION: 1. Multiple bilateral pulmonary micronodules, largest of which is seen within the left upper lobe and measures 6-7 mm in diameter. Again, this is new when compared to 07/28/2016. Three-month followup CT chest is recommended to ensure stability. 2. Moderate calcified aortic and coronary atherosclerosis. 3. Background of moderate emphysematous disease. LungRads Category: 4A-S MODIFIERS: As above. OTHER SIGNIFICANT FINDINGS: As above. Dictated by: Dictated on workstation # [id number]
--- NOTE | 2018-04-26 17:53 | Diagnostic Imaging Report ---
INDICATION: Routine screening. COMPARISON: Comparison is made with prior mammograms from 10/26/2016 and 05/23/2013. TECHNIQUE: 2D and 3D bilateral screening mammography was performed with computer-aided detection (CAD) system. FINDINGS: Scattered fibroglandular densities are identified bilaterally. The parenchymal pattern is stable. No mass or malignant-appearing microcalcifications are seen. The axillae are unremarkable. IMPRESSION: No mammographic features suspicious for malignancy are identified. ACR BI-RADS Category 1: Negative. Result letter will be mailed to the patient. Note: At least 10% of breast cancer is not imaged by mammography. Dictated by: Dictated on workstation # [id number]
== END ==
LOC: RAD 12:56
PROVIDERS: ATTEND Nurse Practitioner Family
DX: Z12.31 Encounter for screening mammogram for malignant neoplasm of breast (principal); Z12.2 Encounter for screening for malignant neoplasm of respiratory organs; I70.0 Atherosclerosis of aorta; I25.10 Atherosclerotic heart disease of native coronary artery without angina pectoris; J43.9 Emphysema, unspecified; Z87.891 Personal history of nicotine dependence
CPT/HCPCS: 77067

== ENCOUNTER → 2018-07-27 | Outpatient (CLI) | payer MEDICARE, OTHER ==
--- NOTE | 2018-07-27 11:25 | Diagnostic Imaging Report ---
PROCEDURE: CT chest without contrast. TECHNIQUE: Multiple contiguous axial images were obtained through the chest without the use of intravenous contrast. INDICATION: Pulmonary nodules. Patient presents for followup. COMPARISON: Correlation is made with prior low-dose CT chest from 04/26/2018. FINDINGS: The previously noted largest reference micronodule in the left upper lobe subpleural location is stable at approximately 6 mm, image #79 series 4. Left apical micronodule, image #40 is stable at 5 mm. Nodule in the posterior medial portion of the superior segment of the left lower lobe seems less prominent on today's study at approximately 3 mm compared with 5 mm. The nodule noted near the base of the right upper lobe on prior exam is not well-seen on today's exam. Centrilobular emphysematous changes are again noted. No new parenchymal mass is seen. No definite pericardial or pleural fluid is detected. Upper abdomen is unremarkable. IMPRESSION: Stable bilateral pulmonary micronodules when compared with the examination from 04/26/2018. Continued followup could be performed in 3-6 months to confirm stability. Dictated by: Dictated on workstation # [id number]
== END ==
LOC: RAD 09:13
PROVIDERS: ATTEND Nurse Practitioner Family
DX: E04.2 Nontoxic multinodular goiter (principal); J43.2 Centrilobular emphysema
CPT/HCPCS: 71250

== ENCOUNTER → 2018-11-21 | Outpatient (CLI) | payer MEDICARE, OTHER ==
--- NOTE | 2018-11-21 14:58 | Diagnostic Imaging Report ---
PROCEDURE: CT chest without contrast. TECHNIQUE: Multiple contiguous axial images were obtained through the chest without the use of intravenous contrast. Auto Exposure Controls were utilized during the CT exam to meet ALARA standards for radiation dose reduction. INDICATION: Pulmonary micronodules, followup. COMPARISON: Correlation is made with prior CT chest from 07/27/2018. FINDINGS: No axillary lymphadenopathy is seen. Normal sized lymph nodes in the mediastinum are identified. There is coronary arterial calcifications. No pericardial or pleural fluid is identified. Left upper lobe nodule is stable at 5-6 mm, image 15. Left apical nodule previously described appears decreased at 2-3 mm, image 7. Nodule in the superior segment of the left lower lobe posterior medial is not appreciated on today's study. Right lung appears fairly clear. There are centrilobular emphysematous changes again noted. Upper abdomen is unremarkable. IMPRESSION: Stable noncontrast CT chest when compared with exam from 07/27/2018. Dictated by: Dictated on workstation # [id number]
== END ==
LOC: RAD 14:27
PROVIDERS: ATTEND Family Medicine
DX: R91.8 Other nonspecific abnormal finding of lung field (principal)
CPT/HCPCS: 71250

== ENCOUNTER 2019-04-15 09:43 | Emergency (ER) | payer MEDICARE, OTHER ==
[~2019-04-15] VITALS: Ht 157 cm; Wt 63.6 kg
--- NOTE | 2019-04-15 10:12 | ED General ---
General Chief Complaint: Chest Wall Stated Complaint: LEFT SIDE RIB PAIN Source of Information: Patient Exam Limitations: No Limitations (ALIX GILL STUDENT) History of Present Illness Date Seen by Provider: Apr 15, 2019 Time Seen by Provider: 09:50 Initial Comments Patient presents to the ED today with a two day history of pain that is located along her upper left ribs and radiates into her left breast. She states that on , she was playing with her Grandsons and heard something pop. The pain did not start until two days ago. She has used lidocaine patches but those do not seem to relieve the pain, which is worse when she takes a breath. She has over a 50 year smoking history and quit one year ago. She leads a sedentary lifestyle and has complained that her upper left leg has been causing her a lot of trouble lately and is painful when she goes to stand up and walk. Timing/Duration: 1-2 Days Severity: Moderate Modifying Factors: worse with Movement; improves with Rest Associated Systoms: Shortness of Air (dyspnea) (ALIX GILL STUDENT) Associated Systoms: No Cough, No Fever/Chills (RADHA GARCIA MD) Allergies and Home Medications Allergies Coded Allergies: codeine (Verified Allergy, Mild, 09/05/16) Home Medications Aspirin 81 Mg Tablet.dr, 81 MG PO DAILY, (Reported) Atorvastatin Calcium 40 Mg Tablet, 40 MG PO DAILY, (Reported) Dicyclomine HCl 10 Mg Capsule, 40 MG PO TID PRN for ABDOMINAL PAIN, (Reported) TAKES 4 (10 MG) CAPSULES Erythromycin Base 250 Mg Tablet, 250 MG PO BID PRN for GI UPSET, (Reported) Famotidine 20 Mg Tablet, 20 MG PO DAILY, (Reported) Hydrocodone/Acetaminophen 1 Each Tablet, 1 EACH PO Q4H PRN for PAIN-MODERATE TO SEVERE Prescribed by: KELSIE MARSHALL on 12/17/161938 Isosorbide Mononitrate 30 Mg Tab.er.24h, 30 MG PO DAILY, (Reported) Lisinopril 10 Mg Tablet, 10 MG PO DAILY, (Reported) Loratadine 10 Mg Tab, 10 MG PO DAILY, (Reported) Nortriptyline HCl 50 Mg Capsule, 50 MG PO DAILY, (Reported) Patient Home Medication List Home Medication List Reviewed: Yes (RADHA GARCIA MD) Review of Systems Review of Systems Constitutional: no symptoms reported EENTM: no symptoms reported Respiratory: see HPI Cardiovascular: no symptoms reported Gastrointestinal: no symptoms reported Genitourinary: no symptoms reported : No Musculoskeletal: see HPI Skin: no symptoms reported Psychiatric/Neurological: No Symptoms Reported Hematologic/Lymphatic: No Symptoms Reported Immunological/Allergic: no symptoms reported (ALIX GILL) Respiratory: No cough, No short of breath; other (pain with deep breathing) Cardiovascular: see HPI, chest pain (left chest wall); No edema Skin: No change in color, No lesions (RADHA GARCIA MD) Past Gnxazhh-Unbhbq-Oddoiy Hx Past Med/Social Hx: Reviewed Nursing Past Med/Soc Hx (RADHA GARCIA MD) Patient Social History Type Used: Cigarettes Recent Hopitalizations: No (ALIX GILL) Immunizations Up To Date Tetanus Booster (TDap): Less than 5yrs Date of Pneumonia Vaccine: Jun 19, 2016 Date of Influenza Vaccine: Jun 19, 2016 (ALIX GILL) Seasonal Allergies Seasonal Allergies: No (ALIX GILL) Past Medical History Surgeries: Yes (CATARACT,HYST,APPY,T&A) Abdominal, Adenoidectomy, Appendectomy, Bowel Surgery, Cardiac, Eye Surgery, Gallbladder, 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, Oophorectomy, Tonsillectomy Respiratory: No Cardiac: Yes (HEART CATH) Coronary Artery Disease, High Cholesterol, Hypertension Neurological: No 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 Disorders: Yes (HYST-HAS 1 OVARY) 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 History: 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 Genitourinary: No Gastrointestinal: Yes (EOSINPHILIC ENTERITITS; SBO) Gastrointestinal Bleed, Obstructive Bowel Musculoskeletal: Yes (ROTATOR CUFF PAIN) Endocrine: No HEENT: Yes Cataract Loss of Vision: Bilateral Cancer: No Psychosocial: No Integumentary: No Blood Disorders: No Adverse Reaction/Blood Tranf: No (ALIX GILL) Family Medical History Reviewed Nursing Family Hx (RADHA GARCIA MD) Cardiovascular disease 19 FATHER Neoplasm 19 MOTHER (colon cancer) G8 SISTER (uterine cancer) Respiratory disorder 19 FATHER Heart Disease, Cancer (ALIX GILL) Physical Exam Vital Signs Vital Signs - First Documented 04/15/19 09:46 Temp 35.7 Pulse 72 Resp 18 B/P (MAP) 140/81 (100) Pulse Ox 96 O2 Delivery Room Air (RADHA GARCIA MD) Vital Signs Capillary Refill : (ALIX GILL STUDENT) Height, Weight, BMI Height: 5'4.00" Weight: 140lbs. 3.0oz. 63.280050dz; 22.2 BMI Method:Stated General Appearance: Mild Distress Eyes: Bilateral Eye Normal Inspection, Bilateral Eye PERRL, Bilateral Eye EOMI HEENT: PERRL/EOMI, Pharynx Normal Respiratory: Chest Non Tender, Lungs Clear, Normal Breath Sounds, No Accessory Muscle Use, No Respiratory Distress Cardiovascular: Regular Rate, Rhythm, No Edema, No Gallop, No JVD, No Murmur, Normal Peripheral Pulses Gastrointestinal: Normal Bowel Sounds, No Organomegaly, No Pulsatile Mass, Non Tender, Soft Back: Normal Inspection, No CVA Tenderness, No Vertebral Tenderness Extremity: Normal Capillary Refill, No Calf Tenderness, No Pedal Edema, Other (Limited Range of Motion with the left arm ) Neurologic/Psychiatric: Alert, Oriented x3, Normal Mood/Affect Skin: Normal Color, Warm/Dry Lymphatic: No Adenopathy (ALIX GILL STUDENT) General Appearance: No Apparent Distress, WD/WN HEENT: PERRL/EOMI, Pharynx Normal Respiratory: No Wheezing; Other (result tenderness to the left anterior/lateral posterior chest wall.) Extremity: Normal Range of Motion, Non Tender, No Calf Tenderness Neurologic/Psychiatric: Alert, Oriented x3 (RADHA GARCIA MD) Progress/Results/Core Measures Suspected Sepsis SIRS Temperature: Pulse: Respiratory Rate: Blood Pressure / Mean: (ALIX GILL STUDENT) Results/Orders My Orders Orders - RADHA GARCIA MD Chest Pa/Lat (2 View) (04/15/19 10:13) Ribs, Left 2-3 Views (04/15/19 10:21) Ketorolac Injection (Toradol Injection) (04/15/19 10:21) (RADHA GARCIA MD) Vital Signs/I&O 04/15/19 09:46 Temp 35.7 Pulse 72 Resp 18 B/P (MAP) 140/81 (100) Pulse Ox 96 O2 Delivery Room Air (RADHA GARCIA MD) Vital Signs/I&O Capillary Refill : (ALIX GILL STUDENT) Progress Note : Progress Note Seen and evaluated the patient and agree with above except as indicated. I directed the plan of care. Patient is here with left sided pain that is lateral and radiates posterior and anterior. Onset after playing with her grandson and reaching out. She states that she felt a pop at that time and it hurt a little bit but got somewhat better but has returned and persist. The pain is in the same area as from the initial episode. It is tender to touch and reproducible. She is not short of breath nor hypoxic and she is not tachycardic. Appears to be more musculoskeletal in origin. I do not believe that PE is a consideration at this point given other negative findings. We will get a chest x-ray two-view as well as left rib series to evaluate the bony structures and lungs. Toradol 30 mg IM given. Monitor patient. 1135: No acute findings on x-rays. Patient feeling a little better after 30 mg of Toradol IM. Discharged home with return precautions. Patient verbalize understanding instructions and agreement with plan. (RADHA GARCIA MD) Diagnostic Imaging Diagonstic Imaging: Xray Plain Films/CT/US/NM/MRI: other Comments [facility]. [place], [place] NAME: SHANAE SERRATO [facility] REC#: [id number] PT STATUS: REG ER : 1950 PHYSICIAN: RADHA GARCIA MD ADMIT DATE: 04/15/19/ER Draft Date of Exam:04/15/19 RIBS, LEFT 2-3 VIEWS INDICATION: Left chest pain worsened with inspiration. FINDINGS: There is no lung contusion, pneumothorax or hemothorax. No findings of pleural hematoma. No free air beneath the diaphragms. Clip at the gallbladder fossa left renal arterial stent noted. No focal alveolar consolidation. No radiographically apparent nor displaced rib fracture deformity evident. The left shoulder unremarkable. The AC joint and clavicle intact. IMPRESSION: No acute appearing abnormality or posttraumatic sequelae revealed at left rib series. Dictated on workstation # [id number] Dict: 04/15/19 1038 Trans: 04/15/19 1044 [id number] Interpreted by: REAL PARIKH Electronically signed by: Zeeshan Imaging: Xray Plain Films/CT/US/NM/MRI: chest Comments [facility]. [place], [place] NAME: SHANAE SERRATO [facility] REC#: [id number] PT STATUS: REG ER : 1950 PHYSICIAN: RADHA GARCIA MD ADMIT DATE: 04/15/19/ER Draft Date of Exam:04/15/19 CHEST PA/LAT (2 VIEW) INDICATION: Injury with left chest pain worsened with inspiration. FINDINGS: No chest wall fracture deformity identified. There is no lung contusion, pneumothorax or hemothorax. Cardiomediastinal and hilar contour is normal. No acute infiltrate found. IMPRESSION: Stable 2 view chest. No fracture deformity or acute abnormality apparent. Dictated on workstation # [id number] Dict: 04/15/19 1040 Trans: 04/15/19 1042 [id number] Interpreted by: REAL PARIKH Electronically signed by: (RADHA GARCIA MD) Departure Impression Primary Impression: Chest wall pain Disposition: 01 HOME, SELF-CARE Condition: Improved Departure-Patient Inst. Decision time for Depature: 11:39 (RADHA GARCIA MD) Referrals: CHRIS PAREDES MD (PCP/Family) Primary Care Physician Patient Instructions: Chest Pain (DC), Chest Pain That Is Not Caused by the Heart (DC), Costochondritis (DC) Add. Discharge Instructions: All discharge instructions reviewed with patient and/or family. Voiced understanding. Anemic take Aleve or the generic one tablet twice daily as needed for pain. You may take extra strength Tylenol/acetaminophen 2 tablets every 8 hours as needed for pain. You may also take the prescribed pain medicine with this as needed for instructions. Follow-up with your this week for recheck and further evaluation. Return for worse pain, fever, vomiting, weakness, breathing problems or other concerns as needed. Scripts Tramadol HCl (Tramadol HCl) 50 Mg Tablet 50 MG PO Q6H PRN for PAIN for 3 Days, #10 TAB 0 Refills Prov: RADHA GARCIA MD 04/15/19 ALIX GILL STUDENT Apr 15, 2019 10:12 RADHA GARCIA MD Apr 15, 2019 10:28
[2019-04-15] MEDS ORDERED: KETOROLAC 30 MG/ML VIAL IM STA (10:21)
--- NOTE | 2019-04-15 10:42 | Diagnostic Imaging Report ---
INDICATION: Injury with left chest pain worsened with inspiration. FINDINGS: No chest wall fracture deformity identified. There is no lung contusion, pneumothorax or hemothorax. Cardiomediastinal and hilar contour is normal. No acute infiltrate found. IMPRESSION: Stable 2 view chest. No fracture deformity or acute abnormality apparent. Dictated by: Dictated on workstation # [id number]
--- NOTE | 2019-04-15 10:44 | Diagnostic Imaging Report ---
INDICATION: Left chest pain worsened with inspiration. FINDINGS: There is no lung contusion, pneumothorax or hemothorax. No findings of pleural hematoma. No free air beneath the diaphragms. Clip at the gallbladder fossa left renal arterial stent noted. No focal alveolar consolidation. No radiographically apparent nor displaced rib fracture deformity evident. The left shoulder unremarkable. The AC joint and clavicle intact. IMPRESSION: No acute appearing abnormality or posttraumatic sequelae revealed at left rib series. Dictated by: Dictated on workstation # [id number]
[2019-04-15] MEDS ORDERED: TRAM50TA2 PO (11:42)
[2019-04-15 12:00] VITALS: BP 135/73
== END 2019-04-15 12:00 | disposition home or self-care (01) ==
LOC: EDUNIT# 09:43 → ER 09:44
DX: R07.89 Other chest pain (principal); I10 Essential (primary) hypertension; E78.00 Pure hypercholesterolemia, unspecified; I25.10 Atherosclerotic heart disease of native coronary artery without angina pectoris; Z90.89 Acquired absence of other organs; Z90.49 Acquired absence of other specified parts of digestive tract; Z90.710 Acquired absence of both cervix and uterus; Z95.5 Presence of coronary angioplasty implant and graft; Z88.5 Allergy status to narcotic agent; Z87.891 Personal history of nicotine dependence; Z82.49 Family history of ischemic heart disease and other diseases of the circulatory system; Z80.0 Family history of malignant neoplasm of digestive organs; Z80.49 Family history of malignant neoplasm of other genital organs
CPT/HCPCS: 71046; 71100; 96372

== ENCOUNTER → 2019-12-30 | Outpatient (CLI) | payer MEDICARE, OTHER ==
[~2019-12-30] MED LIST changes: +TRM50T PO
--- NOTE | 2019-12-30 15:48 | Diagnostic Imaging Report ---
CT Lung Screening INDICATION: History of tobacco use with a 50-pack year history. Quit smoking two years ago. TECHNIQUE: Noncontrast, low-dose CT imaging performed according to lung cancer screening protocol. Auto Exposure Controls were utilized during the CT exam to meet ALARA standards for radiation dose reduction. COMPARISON: 11/21/2018, 04/26/2018. FINDINGS: HEART/MEDIASTINUM: Heart size is normal with trace pericardial effusion versus pericardial thickening. Scattered [id number] coronary artery calcification. Thoracic aortic contour unremarkable. A few mildly prominent, stable mediastinal lymph nodes. Very small hiatal hernia present. LUNGS/MEASURED PULMONARY NODULES: There is a moderately advanced emphysematous change about the lung parenchyma. No consolidating infiltrate. Bilateral pulmonary nodules are present. Reference nodules as follows: -Subpleural lateral left upper lobe (image 50 series 2), 7 mm, generally stable. -Left lung apex (image 22 series 2), 6 mm nodule, stable. -Faint nodule posteromedial superior left lower lobe less well visualized at follow-up (image 89 series 2). -Additional nodule in base of right upper lobe centrally also appears less well visualized (image 94 series 2). -Linear parenchymal density lateral right upper lobe (image 54 series 2) overall appears generally stable. No definitive new or concerning pulmonary mass is demonstrated. OTHER: Cholecystectomy changes are present. IMPRESSION: 1. Advanced emphysematous change about the lung parenchyma. Scattered bilateral pulmonary nodules overall generally stable without definitive adverse interval change. LUNG-RADS CATEGORY: 2 LUNG SCREENING MANAGEMENT/RECOMMENDATIONS: Continued annual screening with low dose CT in 12 months. Notes: Lung rads category 1 or 2 does not mean that an individual does not have lung cancer or other active disease process, but rather nothing is identified to meet criteria for current lung pathology. Therefore, continued annual lung cancer screening should be performed. Please note that this is a low dose CT examination, intended for lung cancer screening of high risk patients. As a technical result, the examination is limited in diagnostic quality compared to a conventional CT examination of the chest. Dictated by: Dictated on workstation # [id number]
== END ==
LOC: RAD 13:36
PROVIDERS: ATTEND Family Medicine
DX: Z12.2 Encounter for screening for malignant neoplasm of respiratory organs (principal); J43.9 Emphysema, unspecified; R91.8 Other nonspecific abnormal finding of lung field; Z87.891 Personal history of nicotine dependence

== ENCOUNTER 2020-04-14 08:51 | Emergency (ER) | payer MEDICARE, OTHER ==
[~2020-04-14] VITALS: Ht 157 cm; Wt 67.0 kg
[~2020-04-14 08:51] MED LIST changes: +ASPI-1238 PO; -ASPI-983 PO
[2020-04-14] MEDS ORDERED: LACTATED RINGERS 1,000 ML IV ONE (09:31)
[2020-04-14 09:40] LABS: BASOPHILS % (AUTO) 0 % (0-10); EOSINOPHILS % (AUTO) 0 % (0-10); HEMATOCRIT 39 % (35-52); LYMPHOCYTES # (AUTO) 1.7 10^3/uL (1.0-4.0); LYMPHOCYTES % (AUTO) 11 % (12-44); MEAN CORPUSCULAR HEMOGLOBIN 31 pg (25-34); MEAN CORPUSCULAR HGB CONC 34 g/dL (32-36); MEAN CORPUSCULAR VOLUME 92 fL (80-99); MEAN PLATELET VOLUME 11.3 fL (9.0-12.2); MONOCYTES # (AUTO) 1.2 10^3/uL (0.0-1.0); MONOCYTES % (AUTO) 8 % (0-12); NEUTROPHILS # (AUTO) 11.7 10^3/uL (1.8-7.8); NEUTROPHILS % (AUTO) 79 % (42-75); PLATELET COUNT 288 10^3/uL (130-400); WHITE BLOOD COUNT 14.7 10^3/uL (4.3-11.0)
[2020-04-14 09:44] LABS: ALBUMIN 4.5 GM/DL (3.2-4.5); CHLORIDE 103 MMOL/L (98-107); POTASSIUM 3.9 MMOL/L (3.6-5.0); SODIUM 138 MMOL/L (135-145)
[2020-04-14 09:45] LABS: CALCIUM 9.9 MG/DL (8.5-10.1)
[2020-04-14] MEDS ORDERED: ONDANSETRON 4 MG/2 ML (SDV) Z0FRAN IVP ONE (09:45)
[2020-04-14] MEDS ORDERED: FAMOTIDINE 20MG/2ML IV (PEPCID) IVP ONE (09:45)
[2020-04-14 09:46] LABS: GLUCOSE 120 MG/DL (70-105); TOTAL PROTEIN 7.9 GM/DL (6.4-8.2)
[2020-04-14 09:47] LABS: CARBON DIOXIDE 22 MMOL/L (21-32)
[2020-04-14 09:48] LABS: BILIRUBIN,TOTAL 0.6 MG/DL (0.1-1.0)
[2020-04-14 09:50] LABS: ALKALINE PHOSPHATASE 85 U/L (40-136); CREATININE SERUM 0.86 MG/DL (0.60-1.30); GFR ESTIMATED > 60
--- NOTE | 2020-04-14 09:50 | ED Abdominal Pain ---
General Chief Complaint: Abdominal/GI Problems Stated Complaint: CONSTIPATION Nursing Triage Note: PT CO OF ABD PAIN, STATES THINKS MAY HAVE A BOWEL OBST. PT STATES VOMITED BM SMELLING AND LOOKING EMESIS THIS AM. PT STATES HAS HAD PAIN SINCE LAST EVENING. PT STATES HAS HAD THIS BEFORE, DID HAVE NORMAL BM THIS AM BUT SINCE HAS HAD MUCUS W BLOOD. Sepsis Screen: No Definite Risk (KELSIE ARREGUIN MED STUDENT) History of Present Illness Date Seen by Provider: Apr 14, 2020 Time Seen by Provider: 09:15 Initial Comments Shanae Bautista is a 70 yo F with history of prior bowel resection, appendectomy, and cholecystectomy who presents with complaint of abdominal pain. She reports abdominal pain 3 days ago which resolved that same day. The patient complains of diffuse non-radiating abdominal pain again last night which has been constant since, with nausea and 3x non-bloody emesis which smelled of stool. The patient also complains of dark stooling, stating she has had a large number of small bowel movements over the course of the last 12 hours. She took 3 of her Rx dicyclomine without improvement of sympoms. She has not slept due to her pain. The patient had a normal heart catheterization 4 years ago and states her current episode feels similar to prior bowel obstructions. (KELSIE ARREGUIN MED STUDENT) Allergies and Home Medications Allergies Coded Allergies: codeine (Verified Allergy, Mild, 09/05/16) Home Medications Aspirin 81 Mg Tablet.dr, 81 MG PO DAILY, (Reported) Atorvastatin Calcium 40 Mg Tablet, 40 MG PO DAILY, (Reported) Ciprofloxacin HCl 500 Mg Tablet, 500 MG PO BID Prescribed by: KANDY CLAYTON on 04/14/20 1259 Dicyclomine HCl 10 Mg Capsule, 40 MG PO TID PRN for ABDOMINAL PAIN, (Reported) TAKES 4 (10 MG) CAPSULES Erythromycin Base 250 Mg Tablet, 250 MG PO BID PRN for GI UPSET, (Reported) Famotidine 20 Mg Tablet, 20 MG PO DAILY, (Reported) Hydrocodone/Acetaminophen 1 Each Tablet, 1 EACH PO Q4H PRN for PAIN-MODERATE TO SEVERE Prescribed by: KELSIE MARSHALL on 12/17/161938 Isosorbide Mononitrate 30 Mg Tab.er.24h, 30 MG PO DAILY, (Reported) Lisinopril 10 Mg Tablet, 10 MG PO DAILY, (Reported) Loratadine 10 Mg Tab, 10 MG PO DAILY, (Reported) Metronidazole 500 Mg Tablet, 500 MG PO TID Prescribed by: KANDY CLAYTON on 04/14/20 1259 Nortriptyline HCl 50 Mg Capsule, 50 MG PO DAILY, (Reported) Ondansetron 4 Mg Tab.rapdis, 4 MG PO Q4H PRN for NAUSEA/VOMITING Prescribed by: KANDY CLAYTON on 04/14/20 1301 Tramadol HCl 50 Mg Tablet, 50 MG PO Q6H PRN for PAIN Prescribed by: RADHA GARCIA on 04/15/19 1142 Patient Home Medication List Home Medication List Reviewed: Yes (KANDY YANCEY MD) Review of Systems Review of Systems Constitutional: No chills, No fever Respiratory: Denies Cough, Denies Shortness of Air Cardiovascular: Denies Chest Pain, Denies Edema Gastrointestinal: Denies Abdomen Distended; Abdominal Pain, Nausea; Denies Rectal Bleeding; Vomiting, Other (dark stool) Psychiatric/Neurological: Headache (KELSIE ARREGUIN STUDENT) All Other Systems Reviewed Negative Unless Noted: Yes (KELSIE ARREGUIN STUDENT) Past Kotiuvp-Nqwefe-Hfxpvy Hx Patient Social History Alcohol Use: Denies Use Recreational Drug Use: No Smoking Status: Former Smoker Type Used: Cigarettes 2nd Hand Smoke Exposure: No Recent Foreign Travel: No Contact w/Someone Who Travel: No Recent Infectious Disease Expo: No Recent Hopitalizations: No (KELSIE ARREGUIN) Immunizations Up To Date Tetanus Booster (TDap): Less than 5yrs PED Vaccines UTD: Yes Date of Pneumonia Vaccine: Jun 19, 2016 Date of Influenza Vaccine: Jun 19, 2016 (KELSIE ARREGUIN STUDENT) Seasonal Allergies Seasonal Allergies: No (KELSIE ARREGUIN STUDENT) Past Medical History Surgeries: Yes (CATARACT,HYST,APPY,T&A, stents in left leg and kidney) Abdominal, Adenoidectomy, Appendectomy, Bowel Surgery, Cardiac, Eye Surgery, Gallbladder, 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, Oophorectomy, Tonsillectomy Respiratory: Yes COPD Cardiac: Yes (HEART CATH) Coronary Artery Disease, High Cholesterol, Hypertension Neurological: No 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 Disorders: Yes (HYST-HAS 1 OVARY) 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 Genitourinary: No Gastrointestinal: Yes (EOSINPHILIC ENTERITITS; SBO) Gastrointestinal Bleed, Obstructive Bowel Musculoskeletal: Yes (ROTATOR CUFF PAIN) Endocrine: No HEENT: Yes Cataract Loss of Vision: Bilateral Cancer: No Psychosocial: No Integumentary: No Blood Disorders: No Adverse Reaction/Blood Tranf: No (KELSIE ARREGUIN STUDENT) Family Medical History Cardiovascular disease 19 FATHER Neoplasm 19 MOTHER (colon cancer) G8 SISTER (uterine cancer) Respiratory disorder 19 FATHER Heart Disease, Cancer (KELSIE ARREGUIN STUDENT) Physical Exam Vital Signs Vital Signs - First Documented 04/14/20 08:52 Temp 36.9 Pulse 119 Resp 20 B/P (MAP) 133/87 (102) Pulse Ox 98 (KANDY YANCEY MD) Vital Signs Capillary Refill : Less Than 3 Seconds (KELSIE ARREGUIN STUDENT) Height/Weight/BMI Height: 5'4.00" Weight: 140lbs. 3.0oz. 63.106644si; 27.00 BMI Method:Stated General Appearance: WD/WN, no apparent distress HEENT: PERRL/EOMI Neck: full range of motion, normal inspection Respiratory: chest non-tender, lungs clear, normal breath sounds, no respiratory distress, no accessory muscle use Cardiovascular: no edema, no gallop, no JVD, no murmur, tachycardia Gastrointestinal: soft, no pulsatile mass; No distended, No guarding, No rebound; tenderness (diffuse abdominal tenderness, more tender in the lower abdomen) Extremities: non-tender, normal inspection, no pedal edema Back: normal inspection, CVA tenderness (R) (mild), CVA tenderness (L) (mild) Neurologic/Psychiatric: alert, normal mood/affect, oriented x 3 Skin: normal color, warm/dry (KELSIE ARREGUIN STUDENT) Progress/Results/Core Measures Results/Orders Lab Results Laboratory Tests Test 04/14/20 09:00 04/14/20 09:47 Range/Units White Blood Count 14.7 H 4.3-11.0 10^3/uL Red Blood Count 4.21 3.80-5.11 10^6/uL Hemoglobin 13.0 11.5-16.0 g/dL Hematocrit 39 35-52 % Mean Corpuscular Volume 92 80-99 fL Mean Corpuscular Hemoglobin 31 25-34 pg Mean Corpuscular Hemoglobin Concent 34 32-36 g/dL Red Cell Distribution Width 13.1 10.0-14.5 % Platelet Count 288 130-400 10^3/uL Mean Platelet Volume 11.3 9.0-12.2 fL Immature Granulocyte % (Auto) 1 % Neutrophils (%) (Auto) 79 H 42-75 % Lymphocytes (%) (Auto) 11 L 12-44 % Monocytes (%) (Auto) 8 0-12 % Eosinophils (%) (Auto) 0 0-10 % Basophils (%) (Auto) 0 0-10 % Neutrophils # (Auto) 11.7 H 1.8-7.8 10^3/uL Lymphocytes # (Auto) 1.7 1.0-4.0 10^3/uL Monocytes # (Auto) 1.2 H 0.0-1.0 10^3/uL Eosinophils # (Auto) 0.0 0.0-0.3 10^3/uL Basophils # (Auto) 0.0 0.0-0.1 10^3/uL Immature Granulocyte # (Auto) 0.1 0.0-0.1 10^3/uL Neutrophils % (Manual) 83 % Lymphocytes % (Manual) 12 % Monocytes % (Manual) 5 % Blood Morphology Comment NORMAL Sodium Level 138 135-145 MMOL/L Potassium Level 3.9 3.6-5.0 MMOL/L Chloride Level 103 98-107 MMOL/L Carbon Dioxide Level 22 21-32 MMOL/L Anion Gap 13 5-14 MMOL/L Blood Urea Nitrogen 16 7-18 MG/DL Creatinine 0.86 0.60-1.30 MG/DL Estimat Glomerular Filtration Rate > 60 BUN/Creatinine Ratio 19 Glucose Level 120 H 70-105 MG/DL Calcium Level 9.9 8.5-10.1 MG/DL Corrected Calcium 9.5 8.5-10.1 MG/DL Magnesium Level 2.1 1.6-2.4 MG/DL Total Bilirubin 0.6 0.1-1.0 MG/DL Aspartate Amino Transf (AST/SGOT) 21 5-34 U/L Alanine Aminotransferase (ALT/SGPT) 22 0-55 U/L Alkaline Phosphatase 85 40-136 U/L C-Reactive Protein High Sensitivity 4.93 H 0.00-0.50 MG/DL Total Protein 7.9 6.4-8.2 GM/DL Albumin 4.5 3.2-4.5 GM/DL Lipase 17 8-78 U/L Urine Color YELLOW Urine Clarity CLEAR Urine pH 5.5 5-9 Urine Specific [place] 1.025 H 1.016-1.022 Urine Protein NEGATIVE NEGATIVE Urine Glucose (UA) NEGATIVE NEGATIVE Urine Ketones TRACE H NEGATIVE Urine Nitrite NEGATIVE NEGATIVE Urine Bilirubin NEGATIVE NEGATIVE Urine Urobilinogen 0.2 < = 1.0 MG/DL Urine Leukocyte Esterase NEGATIVE NEGATIVE Urine RBC (Auto) 1+ H NEGATIVE Urine RBC NONE /HPF Urine WBC RARE /HPF Urine Squamous Epithelial Cells 5-10 /HPF Urine Crystals NONE /LPF Urine Bacteria NEGATIVE /HPF Urine Casts NONE /LPF Urine Mucus NEGATIVE /LPF Urine Culture Indicated NO (KANDY YANCEY MD) My Orders Orders - KANDY YANCEY MD Cbc With Automated Diff (04/14/20 09:31) Comprehensive Metabolic Panel (04/14/20 09:31) Hs C Reactive Protein (04/14/20 09:31) Lipase (04/14/20 09:31) Magnesium (04/14/20 09:31) Ua Culture If Indicated (04/14/20 09:31) Ed Iv/Invasive Line Start (04/14/20 09:31) Lactated Ringers (Lr 1000 Ml Iv Solution (04/14/20 09:31) Ondansetron Injection (Zofran Injectio (04/14/20 09:45) Famotidine Injection (Pepcid Injection) (04/14/20 09:45) Manual Differential (04/14/20 09:00) Ct Abdomen/Pelvis W (04/14/20 10:04) Iohexol Injection (Omnipaque 350 Mg/Ml 1 (04/14/20 11:00) Received Contrast (Hold Metformin- Contr (04/14/20 11:00) Ns (Ivpb) (Sodium Chloride 0.9% Ivpb Bag (04/14/20 11:00) Piperacillin Sodium/Tazobactam (Zosyn Vi (04/14/20 12:00) (KANDY YANCEY MD) Medications Given in ED Current Medications Medications Dose Ordered Sig/Toby Route Start Time Stop Time Status Last Admin Dose Admin Famotidine 20 mg ONCE ONCE IVP 04/14/20 09:45 04/14/20 09:46 DC 04/14/20 10:01 20 MG Iohexol 100 ml ONCE ONCE IV 04/14/20 11:00 04/14/20 11:01 DC 04/14/20 11:07 84 ML Lactated Ringer's 1,000 ml @ 0 mls/hr Q0M ONCE IV 04/14/20 09:31 04/14/20 09:34 DC 04/14/20 10:01 1,000 MLS/HR Ondansetron HCl 8 mg ONCE ONCE IVP 04/14/20 09:45 04/14/20 09:46 DC 04/14/20 10:01 8 MG Piperacillin Sod/ Tazobactam Sod 4.5 gm/Sodium Chloride 100 ml @ 200 mls/hr ONCE ONCE IV 04/14/20 12:00 04/14/20 12:29 DC 04/14/20 12:35 200 MLS/HR Sodium Chloride 100 ml ONCE ONCE IV 04/14/20 11:00 04/14/20 11:01 DC 04/14/20 11:07 80 ML (KANDY YANCEY MD) Vital Signs/I&O 04/14/20 04/14/20 08:52 13:12 Temp 36.9 Pulse 119 67 Resp 20 18 B/P (MAP) 133/87 (102) 132/68 Pulse Ox 98 97 (KANDY YANCEY MD) Blood Pressure Mean: 102 Progress Progress Note : Time: 09:52 Progress Note Shanae is a 70 yo F with history of intestinal resection presenting with symptoms similar to her prior episodes of obstruction. She is afebrile but mildly hypertensive and slightly tachycardic on exam, with diffuse abdominal tenderness and complaint of nausea, 3x vomiting, and diffuse abdominal pain. Patient reports history of appendectomy and cholecystectomy. We will order CT of the abdomen and labwork including CBC, CMP, lipase, CRP, UA, and magnesium. We will give 1L LR due to patient's tachycardia, zofran for nausea, and pepcid. (KELSIE ARREGUIN MED STUDENT) Diagnostic Imaging Diagonstic Imaging: CT Plain Films/CT/US/NM/MRI: abdomen, pelvis Comments CT abdomen and pelvis viewed by me and report reviewed. See report below: NAME: SHANAE BAUTISTA [facility] REC#: [id number] PT STATUS: REG ER : 1950 PHYSICIAN: KANDY YANCEY MD ADMIT DATE: 04/14/20/ER Draft Date of Exam:04/14/20 CT ABDOMEN/PELVIS W PROCEDURE: CT abdomen and pelvis with contrast. TECHNIQUE: Multiple contiguous axial images were obtained through the abdomen and pelvis after administration of intravenous contrast. Auto Exposure Controls were utilized during the CT exam to meet ALARA standards for radiation dose reduction. All CT scans use one or more of the following dose optimizing techniques: automated exposure control, MA and/or KvP adjustment based on patient size and exam type or iterative reconstruction. INDICATION: Abdominal pain and vomiting with low white blood cell count. COMPARISON: Comparison is made with prior CT from 09/05/2016. FINDINGS: Lung bases are clear. No discrete liver mass is detected. Gallbladder is surgically absent. No biliary ductal dilatation is seen. Pancreas and spleen are unremarkable. No adrenal mass is detected. Kidneys are unremarkable. Aorta is nonaneurysmal. The bowel loops are normal in caliber. No obstruction is identified. There is diverticulosis of the sigmoid colon. There is mild inflammatory stranding in the deep pelvis adjacent to the rectum and sigmoid. Rectum and sigmoid do show some wall thickening. Mild diverticulitis is suspected. There is no free fluid or fluid collection. No free air is identified. Bladder is unremarkable. IMPRESSION: Findings suggestive of acute sigmoid diverticulitis. No abscess formation or bowel obstruction is identified. Dictated on workstation # [id number] Dict: 04/14/20 1130 Trans: 04/14/20 1142 [id number] Interpreted by: FALLON GOMEZ MD (KANDY YANCEY MD) Departure Impression Primary Impression: Diverticulitis of intestine Qualified Codes: K57.33 - Diverticulitis of large intestine without perforation or abscess with bleeding Disposition: 01 HOME, SELF-CARE Condition: Improved Departure-Patient Inst. Decision time for Depature: 12:57 (KANDY YANCEY MD) Referrals: CHRIS PAREDES MD (PCP/Family) Primary Care Physician Patient Instructions: Diverticulitis Add. Discharge Instructions: Adhere to a clear liquid diet for the remainder of the day. Tomorrow gradually advance your diet with small quantities of bland food as tolerated. Follow recommendations outlined in the handout attached. Complete your antibiotics as prescribed. Start them as soon as you get them filled today. Use the Zofran as prescribed for nausea and vomiting. Follow-up with your primary care provider soon as possible. Please call today to make an appointment. Take Tylenol (acetaminophen) up to 1000 mg every 6 hours as needed for pain. Return to the emergency room if you have worsening symptoms including development of fever, persistent vomiting, escalating pain, etc. All discharge instructions reviewed with patient and/or family. Voiced understanding. Scripts Ondansetron (Ondansetron Odt) 4 Mg Tab.rapdis 4 MG PO Q4H PRN for NAUSEA/VOMITING, #10 TAB Prov: KANDY YANCEY MD 04/14/20 Metronidazole (Flagyl) 500 Mg Tablet 500 MG PO TID, #21 TAB Prov: KANDY YANCEY MD 04/14/20 Ciprofloxacin HCl (Ciprofloxacin HCl) 500 Mg Tablet 500 MG PO BID, #14 TAB Prov: KANDY YANCEY MD 04/14/20 I have personally interviewed and examined this patient along with Kelsie Arreguin, MS3. I agree with MS 3 documentation including history, physical, and assessments except where otherwise noted. This 70-year-old woman presents with lower abdominal pain and diffuse abdominal tenderness. She had multiple episodes of vomiting as well. She has history of extensive abdominal surgeries. She is afebrile. She is in no distress. Work- up revealed leukocytosis and mildly elevated CRP. Labs were followed by CT of the abdomen and pelvis revealing diverticulitis. Patient was given a liter of IV fluid, Zofran, Pepcid, and Zosyn for initial treatment. She felt like she can manage her symptoms at home with oral medications. She was discharged home with Zofran, Flagyl, and Cipro. Exam: General: Alert, oriented, no acute distress, well-developed HEENT: Normocephalic and atraumatic Heart: Regular rate and rhythm without murmur Lungs: Clear to auscultation bilaterally with normal effort Abdomen: Soft, generalized tenderness, greater in the lower quadrants Skin: Warm and dry without rashes Neuropsych: Alert, oriented, no focal deficits (KANDY YANCEY MD) Copy Copies To 1: CHRIS PAREDES MD, PETER MED STUDENT Apr 14, 2020 09:50 KANDY YANCEY MD Apr 14, 2020 11:48
[2020-04-14 09:51] LABS: BUN/CREATININE RATIO 19
[2020-04-14 09:52] LABS: BILIRUBIN,URINE NEGATIVE (NEGATIVE); CLARITY,URINE CLEAR; COLOR,URINE YELLOW; GLUCOSE, URINE (UA) NEGATIVE (NEGATIVE); KETONES,URINE TRACE (NEGATIVE); LEUKOCYTE ESTERASE ,URINE NEGATIVE (NEGATIVE); NITRITE,URINE NEGATIVE (NEGATIVE); PH,URINE 5.5 (5-9); PROTEIN,URINE NEGATIVE (NEGATIVE)
[2020-04-14 09:53] LABS: ALANINE AMINOTRANSFERASE 22 U/L (0-55); MAGNESIUM 2.1 MG/DL (1.6-2.4)
[2020-04-14 09:54] LABS: LIPASE 17 U/L (8-78)
[2020-04-14 10:00] LABS: BACTERIA,URINE NEGATIVE /HPF; WBC,URINE RARE /HPF
[2020-04-14 10:19] LABS: LYMPHOCYTES % (MANUAL) 12 %; MONOCYTES % (MANUAL) 5 %; NEUTROPHILS % (MANUAL) 83 %; RBC MORPH NORMAL
[2020-04-14] MEDS ORDERED: IOHEXOL 350 MG/ML 100 ML (OMNIPAQUE 350) VIAL IV ONE (11:00)
[2020-04-14] MEDS ORDERED: NS 100 ML (IVPB) BAG IV ONE (11:00)
[2020-04-14] MEDS ORDERED: HOLD METFORMIN - RECEIVED CONTRAST 20 ML VIAL IV SCH (11:00)
--- NOTE | 2020-04-14 11:42 | Diagnostic Imaging Report ---
PROCEDURE: CT abdomen and pelvis with contrast. TECHNIQUE: Multiple contiguous axial images were obtained through the abdomen and pelvis after administration of intravenous contrast. Auto Exposure Controls were utilized during the CT exam to meet ALARA standards for radiation dose reduction. All CT scans use one or more of the following dose optimizing techniques: automated exposure control, MA and/or KvP adjustment based on patient size and exam type or iterative reconstruction. INDICATION: Abdominal pain and vomiting with low white blood cell count. COMPARISON: Comparison is made with prior CT from 09/05/2016. FINDINGS: Lung bases are clear. No discrete liver mass is detected. Gallbladder is surgically absent. No biliary ductal dilatation is seen. Pancreas and spleen are unremarkable. No adrenal mass is detected. Kidneys are unremarkable. Aorta is nonaneurysmal. The bowel loops are normal in caliber. No obstruction is identified. There is diverticulosis of the sigmoid colon. There is mild inflammatory stranding in the deep pelvis adjacent to the rectum and sigmoid. Rectum and sigmoid do show some wall thickening. Mild diverticulitis is suspected. There is no free fluid or fluid collection. No free air is identified. Bladder is unremarkable. IMPRESSION: Findings suggestive of acute sigmoid diverticulitis. No abscess formation or bowel obstruction is identified. Dictated by: Dictated on workstation # [id number]
[2020-04-14] MEDS ORDERED: PIPERACILLIN SODIUM/TAZOBACTAM 4.5 GM in NS (IVPB) 100 ML IV ONE (12:00)
[2020-04-14] MEDS ORDERED: CIPR500T4 PO (12:59)
[2020-04-14] MEDS ORDERED: METR500T PO (12:59)
[2020-04-14] MEDS ORDERED: ONDA4TAB11 PO (13:01)
[2020-04-14 13:12] VITALS: BP 132/68
== END 2020-04-14 13:12 | disposition home or self-care (01) ==
LOC: EDUNIT# 08:51 → ER 08:52
DX: K57.32 Diverticulitis of large intestine without perforation or abscess without bleeding (principal); E78.00 Pure hypercholesterolemia, unspecified; I10 Essential (primary) hypertension; Z82.49 Family history of ischemic heart disease and other diseases of the circulatory system; Z80.0 Family history of malignant neoplasm of digestive organs; Z80.49 Family history of malignant neoplasm of other genital organs; Z95.9 Presence of cardiac and vascular implant and graft, unspecified; Z87.891 Personal history of nicotine dependence; Z88.5 Allergy status to narcotic agent; Z79.82 Long term (current) use of aspirin
CPT/HCPCS: 36415; 74177; 80053; 81000; 83690; 83735; 85007; 85027; 86141

== ENCOUNTER 2020-04-16 11:33 | Inpatient (IN) | payer MEDICARE, OTHER ==
[~2020-04-16] VITALS: Ht 160 cm; Wt 66.2 kg
[~2020-04-16 11:33] MED LIST changes: +CIPR500T4 PO; +ONDA4TAB11 PO
[2020-04-16 12:31] VITALS: BP 137/63
[2020-04-16] MEDS ORDERED: ACETAMINOPHEN 500 MG TAB (TYLENOL) PO PRN (12:45)
[2020-04-16] MEDS ORDERED: CATHETER FLUSH 10 ML SYR IV PRN (13:00)
[2020-04-16 13:26] LABS: BASOPHILS % (AUTO) 1 % (0-10); EOSINOPHILS # (AUTO) 0.1 10^3/uL (0.0-0.3); EOSINOPHILS % (AUTO) 1 % (0-10); HEMATOCRIT 36 % (35-52); HEMOGLOBIN 11.7 g/dL (11.5-16.0); LYMPHOCYTES # (AUTO) 1.4 10^3/uL (1.0-4.0); LYMPHOCYTES % (AUTO) 21 % (12-44); MEAN CORPUSCULAR HEMOGLOBIN 31 pg (25-34); MEAN CORPUSCULAR HGB CONC 33 g/dL (32-36); MEAN CORPUSCULAR VOLUME 94 fL (80-99); MEAN PLATELET VOLUME 10.8 fL (9.0-12.2); MONOCYTES # (AUTO) 0.6 10^3/uL (0.0-1.0); MONOCYTES % (AUTO) 9 % (0-12); NEUTROPHILS # (AUTO) 4.4 10^3/uL (1.8-7.8); NEUTROPHILS % (AUTO) 68 % (42-75); PLATELET COUNT 258 10^3/uL (130-400); WHITE BLOOD COUNT 6.4 10^3/uL (4.3-11.0)
[2020-04-16 13:41] LABS: ALANINE AMINOTRANSFERASE 28 U/L (0-55); ALBUMIN 3.9 GM/DL (3.2-4.5); ALKALINE PHOSPHATASE 78 U/L (40-136); BILIRUBIN,TOTAL 0.3 MG/DL (0.1-1.0); BUN/CREATININE RATIO 18; CALCIUM 9.2 MG/DL (8.5-10.1); CARBON DIOXIDE 22 MMOL/L (21-32); CHLORIDE 106 MMOL/L (98-107); CREATININE SERUM 0.85 MG/DL (0.60-1.30); GFR ESTIMATED > 60; GLUCOSE 90 MG/DL (70-105); POTASSIUM 3.9 MMOL/L (3.6-5.0); SODIUM 140 MMOL/L (135-145); TOTAL PROTEIN 6.9 GM/DL (6.4-8.2)
[2020-04-16] MEDS: POTASSIUM CHLORIDE INJ 20 MEQ in D5 LR IV SOLUTION 1,000 ML IV SCH (14:52)
[2020-04-16] MEDS: ENOXAPARIN 40 MG/0.4 ML (LOVENOX) SYR SC SCH (14:52)
[2020-04-16] MEDS: LACTOBACILLUS ACIDOPHILUS (PROBIOTIC) CAPSULE PO SCH ×2 (14:52→17:16)
[2020-04-16] MEDS: metroNIDAZOLE 500MG/100ML IVPB 100 ML IV SCH ×2 (14:52→23:21)
[2020-04-16] MEDS ORDERED: METR-145 PO (15:20)
[2020-04-16] MEDS ORDERED: CIPR-225 PO (15:20)
[2020-04-16] MEDS ORDERED: MULT-1136 PO (15:20)
[2020-04-16] MEDS ORDERED: ACET-2267 PO (15:20)
[2020-04-16] MEDS ORDERED: ONDA4TAB11 PO (15:21)
--- NOTE | 2020-04-16 15:22 | NUR ---
SPOKE WITH THE PT (CALLED HER ROOM PHONE), WENT THRU THE EXT MED HISTORY AND CALLED [facility] TO COMPLETE THE MED REC WHEN I SPOKE WITH THE PT SHE MENTIONED SHE QUIT TAKING ALL HER MAINTENANCE MEDICATIONS EXCEPT FOR HER CHOLESTEROL MED. SHE MENTIONED GABAPENTIN AND DICYCLOMINE SHE JUST TAKES PRN, HOWEVER BOTH THESE MEDS WERE LAST FILLED IN 2018. DUE TO THE SCRIPT BEING I DID NOT INCLUDE THIS ON THE MED REC PT ALSO MENTIONED SHE IS PRESCRIBED A BLOOD PRESSURE MEDICATION BUT DOES NOT TAKE IT DUE TO IT DROPPING HER BP TO LOW- THE [facility] LAST FILLED LISINOPRIL 2.5MG ON 10-26-2018 #90. ATORVASTATIN 40MG WAS LAST FILLED 11-22-2019 #90/90DS- PT SAYS SHE DOES TAKE THIS MED OTC MEDS: ASPIRIN 81MG TYLENOL MTV
[2020-04-16 16:00] VITALS: BP 136/64
--- NOTE | 2020-04-16 16:19 | NUR ---
DR PAREDES NOTIFIED OF COVID RAPID TEST RESULTS
[2020-04-16 20:00] VITALS: BP 132/62
--- NOTE | 2020-04-16 20:19 | History & Physicial ---
History of Present Illness History of Present Illness Reason for visit/HPI PT IS A 70 Y/O FEMALE WHO IS WELL KNOWN TO ME FROM CLINIC. SHE PRESENTED TO THE OFFICE TODAY AFTER HAVING BEEN SEEN IN THE ER TWO DAYS PRIOR FOR ABDOMINAL PAIN. SHE WAS DIAGNOSED WITH ACUTE DIVERTICULITIS AND SENT HOME ON ORAL ANTIBIOTICS. APPARENTLY SHE HAS NOT BEEN ABLE TO KEEP THE ORAL MEDICATION DOWN DUE TO HER PAIN AND NAUSEA AND HAS HAD PROGRESSIVE ABDOMINAL DISCOMFORT WITH EXTENSIVE DIARRHEA AND HAS NOT BEEN ABLE TO EAT OR DRINK TO KEEP UP WITH HER GI LOSSES. Date of Admission Apr 16, 2020 at 11:40 Date Seen by a Provider: Apr 17, 2020 Time Seen by a Provider: 18:00 Attending Physician Chris Menendez MD Admitting Physician Chris Menendez MD Consult Allergies and Home Medications Allergies Coded Allergies: codeine (Verified Allergy, Mild, 09/05/16) Home Medications Acetaminophen 500 Mg Tablet, 1,000 MG PO Q8H PRN for PAIN-MILD (1-4) OR TEMPATURE, (Reported) Aspirin 81 Mg Tablet.dr, 81 MG PO DAILY, (Reported) Atorvastatin Calcium 40 Mg Tablet, 40 MG PO DAILY, (Reported) Ciprofloxacin HCl 500 Mg Tablet, 500 MG PO BID, (Reported) FILLED 04-14-2020 #14/7 DAY SUPPLY Metronidazole 500 Mg Tablet, 500 MG PO TID, (Reported) FILLED 04-14-2020 #21/7 DAY SUPPLY Multivitamin 1 Each Tablet, 1 EACH PO DAILY, (Reported) Ondansetron 4 Mg Tab.rapdis, 4 MG PO Q4H PRN for NAUSEA/VOMITING-1ST LINE, (Reported) Patient Home Medication List Home Medication List Reviewed: Yes Past Hwmkmaa-Rdfydk-Thxgod Hx Patient Social History Marrital Status: Living Status: LIVES AT HOME WITH SPOUSE IN [place] Employed/Student: retired Alcohol Use: Denies Use Recreational Drug Use: No Smoking Status: Former Smoker Type Used: Cigarettes 2nd Hand Smoke Exposure: No Physical Abuse Screen: No Sexual Abuse: No Recent Foreign Travel: No Contact w/other who traveled: No Recent Hopitalizations: No Recent Infectious Disease Expo: No Immunizations Up To Date Tetanus Booster (TDap): Less than 5yrs Pediatric: Yes Date of Pneumonia Vaccine: Jun 19, 2016 Date of Influenza Vaccine: Jun 19, 2016 Seasonal Allergies Seasonal Allergies: No Surgeries Yes (CATARACT,HYST,APPY,T&A, stents in left leg and kidney) Abdominal, Adenoidectomy, Appendectomy, Bowel Surgery, Cardiac, Eye Surgery, Gallbladder, 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, Oophorectomy, Tonsillectomy Respiratory Yes Chronic Bronchitis, COPD Cardiovascular Yes (HEART CATH) Coronary Artery Disease, High Cholesterol, Hypertension Neurological No 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 System 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 Disorders: 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 (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-HAS 1 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 Genitourinary No Gastrointestinal Yes (EOSINPHILIC ENTERITITS; SBO) Gastrointestinal Bleed, Obstructive Bowel Musculoskeletal Yes (ROTATOR CUFF PAIN) Endocrine History of Endocrine Disorders: No HEENT History of HEENT Disorders: Yes HEENT Disorders: Cataract Loss of Vision: Bilateral Cancer No Psychosocial History of Psychiatric Problem: No Integumentary History of Skin or Integumenta: No Blood Transfusions History of Blood Disorders: No Adverse Reaction to a Blood Tr: No Reviewed Nursing Assessment Reviewed/Agree w Nursing PMH: Yes Family Medical History Significant Family History: Heart Disease, Cancer Family Hx: Cardiovascular disease 19 FATHER Neoplasm 19 MOTHER (colon cancer) G8 SISTER (uterine cancer) Respiratory disorder 19 FATHER Review of Systems Constitutional: No chills, No fever EENTM: No hoarseness, No throat pain Respiratory: No cough, No dyspnea on exertion, No short of breath Cardiovascular: No chest pain, No edema Gastrointestinal: abdominal pain (DIFFUSELY - WORSE IN RLQ, LLQ), diarrhea, loss of appetite, nausea Genitourinary: no symptoms reported Musculoskeletal: No back pain, No muscle weakness Skin: no symptoms reported Psychiatric/Neurological: Denies Anxiety, Denies Depressed; Weakness All Other Systems Reviewed Negative Unless Noted: Yes Physical Exam Vital Signs Vital Signs - First Documented 04/16/20 12:31 Temp 35.7 Pulse 81 Resp 16 B/P (MAP) 137/63 Pulse Ox 96 O2 Delivery Room Air Capillary Refill : Less Than 3 Seconds Height, Weight, BMI Height: 5'4.00" Weight: 140lbs. 3.0oz. 63.034951wo; 25.85 BMI Method:Stated General Appearance: No Apparent Distress, WD/WN HEENT: PERRL/EOMI, Normal ENT Inspection, Pharynx Normal Neck: Full Range of Motion, Normal Inspection, Non Tender, Supple Respiratory: Chest Non Tender, Lungs Clear, Normal Breath Sounds, No Accessory Muscle Use Cardiovascular: Regular Rate, Rhythm, Normal Peripheral Pulses Gastrointestinal: Distended, Tenderness (DIFFUSELY THROUGHOUT ABDOMEN WITH DULL SOUND IN LOWER ABDOMEN WITH PERCUSSION) Rectal: Deferred Back: Normal Inspection Extremity: Normal Capillary Refill, Normal Inspection, Normal Range of Motion, Non Tender, No Calf Tenderness, No Pedal Edema Neurologic/Psychiatric: Alert, Oriented x3, No Motor/Sensory Deficits, Normal 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, 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 Norm as Tested Skin: Normal Color, Warm/Dry Lymphatic: No Adenopathy Assessment/Plan Assessment and Plan ACUTE DIVERTICULITIS DIARRHEA NAUSEA INABILITY TO TAKE ORAL ANTIBIOTICS DUE TO NAUSEA CHRONIC CROHNS DISEASE DEHYDRATION ABDOMINAL PAIN ACUTE DIVERTICULITIS WITH DIARRHEA, NAUSEA AND INABILITY TO TAKE ORAL ANTIBIOTICS DUE TO NAUSEA - IV FLAGYL, CIPRO, IV FLUIDS, MONITOR OUTPUT, WILL NOT SLOW DOWN HER DIARRHEA - IV ZOFRAN FOR NAUSEA - CLEAR LIQUID ONLY CHRONIC CROHNS DISEASE - SUPPORTIVE CARE, WILL WAIT ON IV STEROIDS UNLESS PATIENT HAS SYMPTOMS THAT REQUIRE ANTI-INFLAMMATION\\ DEHYDRATION - IV FLUIDS, MONITOR INTAKE, OUTPUT. ABDOMINAL PAIN - WILL WAIT ON PAIN MEDICATION OTHER THAN TYLENOL AT THIS TIME Admission Diagnosis ACUTE DIVERTICULITIS DIARRHEA NAUSEA INABILITY TO TAKE ORAL ANTIBIOTICS DUE TO NAUSEA CHRONIC CROHNS DISEASE DEHYDRATION ABDOMINAL PAIN Admission Status: Inpatient Order (span 2 midnights) Reason for Inpatient Admission: inpatient admission for diverticulitis - acute - with crohn's disease and dehydration Clinical Quality Measures DVT/VTE Risk/Contraindication: Risk Factor Score Per Nursin RFS Level Per Nursing on Admit: 4+=Very High CHRIS MENENDEZ MD Apr 16, 2020 20:19
--- NOTE | 2020-04-16 20:40 | NUR ---
DR PAREDES ON FLOOR AT THIS TIME, ORDERED TO START PT ON SOFT DIET TOMORROW MORNING. AND ASKED TO TRANSFER PT TO THE [facility] SINCE PT TESTED NEGATIVE FOR COVID.
[2020-04-16 23:24] VITALS: BP 136/65
[2020-04-17] MEDS: POTASSIUM CHLORIDE INJ 20 MEQ in D5 LR IV SOLUTION 1,000 ML IV SCH ×3 (02:02→16:30)
[2020-04-17 04:45] VITALS: BP 123/77
[2020-04-17 05:37] LABS: HEMOGLOBIN 11.2 g/dL (11.5-16.0); MEAN PLATELET VOLUME 10.8 fL (9.0-12.2); WHITE BLOOD COUNT 4.4 10^3/uL (4.3-11.0)
[2020-04-17 05:53] LABS: CHLORIDE 108 MMOL/L (98-107); SODIUM 139 MMOL/L (135-145)
[2020-04-17 05:54] LABS: CALCIUM 8.8 MG/DL (8.5-10.1)
[2020-04-17 05:55] LABS: GLUCOSE 119 MG/DL (70-105)
[2020-04-17 05:56] LABS: CARBON DIOXIDE 22 MMOL/L (21-32)
[2020-04-17 05:59] LABS: BUN/CREATININE RATIO 14; CREATININE SERUM 0.74 MG/DL (0.60-1.30); GFR ESTIMATED > 60
[2020-04-17] MEDS: metroNIDAZOLE 500MG/100ML IVPB 100 ML IV SCH ×3 (06:33→22:10)
[2020-04-17 08:00] VITALS: BP 137/66
[2020-04-17] MEDS ORDERED: RT-ALBUTEROL/IPRATROPIUM 3 ML (DUONEB) VIAL ONE (08:11)
[2020-04-17] MEDS: LACTOBACILLUS ACIDOPHILUS (PROBIOTIC) CAPSULE PO SCH ×3 (09:18→17:20)
[2020-04-17] MEDS: CIPROFLOXACIN IV 400MG/200ML 200 ML IV SCH (09:19)
--- NOTE | 2020-04-17 09:44 | NUR ---
PATIENT C/O ITCHING NEAR IV SITE. 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 STOPPED IV AND SPOKE WITH NORMA PHARMACIST. DIRECTED BY NORMA TO SLOW INFUSION RATE AND MONITOR. PATIENT EDUCATED ON S/S OF ALLERGIC REACTION AND TO REPORT ANY FURTHER ITCHING OR SYMPOMTS IMMEDIATELY. CONT TO MONITOR. RATE @ 100ML/HR CIPRO IV.
--- NOTE | 2020-04-17 10:53 | Progress Note ---
Subjective Subjective Date Seen by Provider: Apr 17, 2020 Time Seen by Provider: 09:30 70 Y/O FEMALE WITH ACUTE DIVERTICULITIS, DIARRHEA, AND CROHN'S DISEASE PT REPORTS THAT SHE TOLERATED LIQUIDS LAST NIGHT WELL THE SOFT DIET THIS MORNING, BUT THE "FOOD WAS BAD".SHE REPORTS 5 DIARRHEAL STOOLS THIS MORNING. SHE CONTINUES TO HAVE A LOT OF PAIN IN HER STOMACH. Review of Systems General: No Chills; Fatigue HEENT: No Dysphasia Pulmonary: No Dyspnea, No Cough Cardiovascular: No: Chest Pain, Palpitations Gastrointestinal: Abdominal Pain, Diarrhea; No: Nausea Genitourinary: No Dysuria Musculoskeletal: No: back pain Neurological: Weakness; No: Confusion Objective Exam Vital Signs Vital Signs - First Documented 04/16/20 12:31 Temp 35.7 Pulse 81 Resp 16 B/P (MAP) 137/63 Pulse Ox 96 O2 Delivery Room Air Capillary Refill : Less Than 3 SecondsLess Than 3 Seconds General Appearance: No Apparent Distress, WD/WN HEENT: PERRL/EOMI, Pharynx Normal Neck: Full Range of Motion, Supple Respiratory: Chest Non Tender, Lungs Clear, Normal Breath Sounds, No Accessory Muscle Use Cardiovascular: Regular Rate, Rhythm, Normal Peripheral Pulses Gastrointestinal: Abnormal Bowel Sounds (HYPERACTIVE), Distended, Tenderness (DIFFUSELY) Rectal: Deferred Back: Normal Inspection Extremity: Normal Capillary Refill, Non Tender, No Calf Tenderness, No Pedal Edema Neurologic/Psychiatric: Alert, Oriented x3, No Motor/Sensory Deficits, Normal Mood/Affect, mutuel clerk II-XII Norm as Tested Skin: Normal Color, Warm/Dry Lymphatic: No Adenopathy Results Lab Laboratory Tests 04/16/20 13:08: White Blood Count 6.4, Red Blood Count 3.82, Hemoglobin 11.7, Hematocrit 36, Mean Corpuscular Volume 94, Mean Corpuscular Hemoglobin 31, Mean Corpuscular Hemoglobin Concent 33, Red Cell Distribution Width 12.8, Platelet Count 258, Mean Platelet Volume 10.8, Immature Granulocyte % (Auto) 0, Neutrophils (%) (Auto) 68, Lymphocytes (%) (Auto) 21, Monocytes (%) (Auto) 9, Eosinophils (%) (Auto) 1, Basophils (%) (Auto) 1, Neutrophils # (Auto) 4.4, Lymphocytes # (Auto) 1.4, Monocytes # (Auto) 0.6, Eosinophils # (Auto) 0.1, Basophils # (Auto) 0.0, Immature Granulocyte # (Auto) 0.0, Sodium Level 140, Potassium Level 3.9, Chloride Level 106, Carbon Dioxide Level 22, Anion Gap 12, Blood Urea Nitrogen 15, Creatinine 0.85, Estimat Glomerular Filtration Rate > 60, BUN/Creatinine Ratio 18, Glucose Level 90, Lactic Acid Level 0.87, Calcium Level 9.2, Corrected Calcium 9.3, Total Bilirubin 0.3, Aspartate Amino Transf (AST/SGOT) 20, Alanine Aminotransferase (ALT/SGPT) 28, Alkaline Phosphatase 78, Total Protein 6.9, Albumin 3.9 04/16/20 15:00: Coronavirus 2019 ([facility]) Negative 04/17/20 05:28: White Blood Count 4.4, Red Blood Count 3.68L, Hemoglobin 11.2L, Hematocrit 34L, Mean Corpuscular Volume 93, Mean Corpuscular Hemoglobin 30, Mean Corpuscular Hemoglobin Concent 33, Red Cell Distribution Width 12.7, Platelet Count 238, Mean Platelet Volume 10.8, Sodium Level 139, Potassium Level 4.0, Chloride Level 108H, Carbon Dioxide Level 22, Anion Gap 9, Blood Urea Nitrogen 10, Creatinine 0.74, Estimat Glomerular Filtration Rate > 60, BUN/Creatinine Ratio 14, Glucose Level 119H, Calcium Level 8.8 Assessment/Plan Assessment/Plan Admission Dx ACUTE DIVERTICULITIS DIARRHEA NAUSEA INABILITY TO TAKE ORAL ANTIBIOTICS DUE TO NAUSEA CHRONIC CROHNS DISEASE DEHYDRATION ABDOMINAL PAIN Assessment and Plan ACUTE DIVERTICULITIS DIARRHEA NAUSEA INABILITY TO TAKE ORAL ANTIBIOTICS DUE TO NAUSEA CHRONIC CROHNS DISEASE DEHYDRATION ABDOMINAL PAIN ACUTE DIVERTICULITIS WITH DIARRHEA, NAUSEA AND INABILITY TO TAKE ORAL ANTIBIOTICS DUE TO NAUSEA - IV FLAGYL, CIPRO, IV FLUIDS, MONITOR OUTPUT, WILL NOT SLOW DOWN HER DIARRHEA WITH IMMODIUM AT THIS TIME, MONITOR SYMPTOMS. - IV ZOFRAN FOR NAUSEA - ADVANCED DIET TO SOFT DIET, MONITOR OUTPUT ON THE SOFT DIET CHRONIC CROHNS DISEASE - SUPPORTIVE CARE, WILL WAIT ON IV STEROIDS UNLESS PATIENT HAS SYMPTOMS THAT REQUIRE ANTI-INFLAMMATION\\ DEHYDRATION - IV FLUIDS, MONITOR INTAKE, OUTPUT. ABDOMINAL PAIN - WILL WAIT ON PAIN MEDICATION OTHER THAN TYLENOL AT THIS TIME Clinical Quality Measures DVT/VTE Risk/Contraindication: Risk Factor Score Per Nursin RFS Level Per Nursing on Admit: 4+=Very High CHRIS PAREDES MD Apr 17, 2020 10:53
[2020-04-17 11:47] LABS: BILIRUBIN,URINE NEGATIVE (NEGATIVE); CLARITY,URINE CLEAR; COLOR,URINE YELLOW; GLUCOSE, URINE (UA) NEGATIVE (NEGATIVE); KETONES,URINE NEGATIVE (NEGATIVE); LEUKOCYTE ESTERASE ,URINE NEGATIVE (NEGATIVE); NITRITE,URINE NEGATIVE (NEGATIVE); PH,URINE 7.5 (5-9); PROTEIN,URINE NEGATIVE (NEGATIVE)
[2020-04-17 11:53] LABS: BACTERIA,URINE NEGATIVE /HPF; SQUAMOUS EPITHELIAL CELL,UR 0-2 /HPF
[2020-04-17 12:00] VITALS: BP 143/69
[2020-04-17] MEDS: ENOXAPARIN 40 MG/0.4 ML (LOVENOX) SYR SC SCH (12:31)
[2020-04-17 16:07] VITALS: BP 136/88
[2020-04-17 19:02] VITALS: BP 124/61
[2020-04-17] MEDS: ONDANSETRON 4 MG/2 ML (SDV) Z0FRAN IVP PRN (22:10)
[2020-04-17 23:29] VITALS: BP 149/71
[2020-04-18 04:12] VITALS: BP 134/84
[2020-04-18] MEDS: POTASSIUM CHLORIDE INJ 20 MEQ in D5 LR IV SOLUTION 1,000 ML IV SCH ×2 (04:21→17:52)
[2020-04-18] MEDS: metroNIDAZOLE 500MG/100ML IVPB 100 ML IV SCH ×3 (06:08→20:54)
[2020-04-18 07:04] LABS: HEMOGLOBIN 11.1 g/dL (11.5-16.0); MEAN PLATELET VOLUME 10.9 fL (9.0-12.2)
[2020-04-18 07:11] LABS: CHLORIDE 109 MMOL/L (98-107); POTASSIUM 4.3 MMOL/L (3.6-5.0); SODIUM 141 MMOL/L (135-145)
[2020-04-18 07:12] LABS: CALCIUM 8.9 MG/DL (8.5-10.1); GLUCOSE 108 MG/DL (70-105)
[2020-04-18 07:14] LABS: CARBON DIOXIDE 23 MMOL/L (21-32)
[2020-04-18 07:16] LABS: CREATININE SERUM 0.75 MG/DL (0.60-1.30); GFR ESTIMATED > 60
[2020-04-18 07:17] LABS: BUN/CREATININE RATIO 7
[2020-04-18] MEDS: CIPROFLOXACIN IV 400MG/200ML 200 ML IV SCH (08:33)
[2020-04-18 08:55] VITALS: BP 136/79
--- NOTE | 2020-04-18 09:28 | Progress Note ---
Subjective Subjective Date Seen by Provider: Apr 18, 2020 Time Seen by Provider: 09:20 70 Y/O FEMALE WITH ACUTE DIVERTICULITIS, DIARRHEA, AND CROHN'S DISEASE TODAY KAREN REPORTS THAT SHE HAD A SIGNIFICANT AMOUNT OF OUTPUT FROM HER GI TRACT AFTER TAKING THE PROBIOTICS YESTERDAY AFTERNOON AND EVENING. SHE STILL HAS ABDOMINAL PAIN, BUT HAS KEPT DOWN THE SOFT DIET FAIRLY WELL. SHE DENIES CHEST PAIN, SHORTNESS OF BREATH. SHE STATES THAT SHE IS SCARED OF HAVING TO UNDERGO A COLOSTOMY AND WILL FOLLOW ALL DIRECTIONS. Review of Systems General: No Chills; Fatigue HEENT: No Dysphasia Pulmonary: No Dyspnea, No Cough Cardiovascular: No: Chest Pain, Palpitations Gastrointestinal: Abdominal Pain, Diarrhea; No: Nausea Genitourinary: No Dysuria Musculoskeletal: No: back pain Neurological: Weakness; No: Confusion All Other Systems Reviewed All Other Systems Reviewed: Yes Objective Exam Vital Signs Vital Signs - First Documented 04/16/20 12:31 Temp 35.7 Pulse 81 Resp 16 B/P (MAP) 137/63 Pulse Ox 96 O2 Delivery Room Air Capillary Refill : Less Than 3 SecondsLess Than 3 Seconds General Appearance: No Apparent Distress, WD/WN HEENT: PERRL/EOMI, Pharynx Normal Neck: Full Range of Motion, Supple Respiratory: Chest Non Tender, Lungs Clear, Normal Breath Sounds, No Accessory Muscle Use Cardiovascular: Regular Rate, Rhythm, Normal Peripheral Pulses Gastrointestinal: Abnormal Bowel Sounds (SLIGHTLY HYPERACTIVE), Distended, Tenderness (IN RIGHT LOWER AND LEFT LOWER QUADRANTS, WORSE ON LEFT, BUT BOTH IMPROVED FROM ADMISSION) Rectal: Deferred Back: Normal Inspection Extremity: Normal Capillary Refill, Non Tender, No Calf Tenderness, No Pedal Edema Neurologic/Psychiatric: Alert, Oriented x3, No Motor/Sensory Deficits, Normal Mood/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, 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 Skin: Normal Color, Warm/Dry Lymphatic: No Adenopathy Results Lab Laboratory Tests 04/17/20 11:25: Urine Color YELLOW, Urine Clarity CLEAR, Urine pH 7.5, Urine Specific [place] 1.010L, Urine Protein NEGATIVE, Urine Glucose (UA) NEGATIVE, Urine Ketones NEGATIVE, Urine Nitrite NEGATIVE, Urine Bilirubin NEGATIVE, Urine Urobilinogen 0.2, Urine Leukocyte Esterase NEGATIVE, Urine RBC (Auto) NEGATIVE, Urine RBC NONE, Urine WBC NONE, Urine Squamous Epithelial Cells 0-2, Urine Crystals NONE, Urine Bacteria NEGATIVE, Urine Casts NONE, Urine Mucus NEGATIVE, Urine Culture Indicated NO 04/18/20 06:43: White Blood Count 4.0L, Red Blood Count 3.71L, Hemoglobin 11.1L, Hematocrit 34L, Mean Corpuscular Volume 93, Mean Corpuscular Hemoglobin 30, Mean Corpuscular Hemoglobin Concent 32, Red Cell Distribution Width 12.6, Platelet Count 258, Mean Platelet Volume 10.9, Sodium Level 141, Potassium Level 4.3, Chloride Level 109H, Carbon Dioxide Level 23, Anion Gap 9, Blood Urea Nitrogen 5L, Creatinine 0.75, Estimat Glomerular Filtration Rate > 60, BUN/Creatinine Ratio 7, Glucose Level 108H, Calcium Level 8.9 Microbiology 04/16/20 Blood Culture - Preliminary, Resulted No growth Assessment/Plan Assessment/Plan Admission Dx ACUTE DIVERTICULITIS DIARRHEA NAUSEA INABILITY TO TAKE ORAL ANTIBIOTICS DUE TO NAUSEA CHRONIC CROHNS DISEASE DEHYDRATION ABDOMINAL PAIN Assessment and Plan ACUTE DIVERTICULITIS DIARRHEA NAUSEA INABILITY TO TAKE ORAL ANTIBIOTICS DUE TO NAUSEA CHRONIC CROHNS DISEASE DEHYDRATION ABDOMINAL PAIN ACUTE DIVERTICULITIS WITH DIARRHEA, NAUSEA AND INABILITY TO TAKE ORAL ANTIBIOTICS DUE TO NAUSEA - IV FLAGYL, CIPRO, IV FLUIDS, MONITOR OUTPUT, WILL NOT SLOW DOWN HER DIARRHEA WITH IMMODIUM AT THIS TIME, MONITOR SYMPTOMS. - IV ZOFRAN FOR NAUSEA - ADVANCED DIET TO SOFT DIET, MONITOR OUTPUT ON THE SOFT DIET - PT NOT TOLERATING THE PROBIOTICS - THEREFORE WILL STOP THEM TO SEE IF THIS HELPS HER OUTPUT SLOW DOWN. CHRONIC CROHNS DISEASE - SUPPORTIVE CARE, WILL WAIT ON IV STEROIDS UNLESS PATIENT HAS SYMPTOMS THAT REQUIRE ANTI-INFLAMMATION DEHYDRATION - IMPROVED ON IV FLUIDS, MONITOR INTAKE, OUTPUT. ABDOMINAL PAIN - WILL WAIT ON PAIN MEDICATION OTHER THAN TYLENOL AT THIS TIME DISCUSSED WITH KAREN AND HER PAT - WE WILL ADVANCE HER DIET, MONITOR HER OUTPUT AND POSSIBLY DISCHARGE ON MONDAY OR MONDAY. Admission Dx ACUTE DIVERTICULITIS DIARRHEA NAUSEA INABILITY TO TAKE ORAL ANTIBIOTICS DUE TO NAUSEA CHRONIC CROHNS DISEASE DEHYDRATION ABDOMINAL PAIN Clinical Quality Measures Admission Status Admission Dx ACUTE DIVERTICULITIS DIARRHEA NAUSEA INABILITY TO TAKE ORAL ANTIBIOTICS DUE TO NAUSEA CHRONIC CROHNS DISEASE DEHYDRATION ABDOMINAL PAIN DVT/VTE Risk/Contraindication: Risk Factor Score Per Nursin RFS Level Per Nursing on Admit: 4+=Very High CHRIS PAREDES MD Apr 18, 2020 09:28
[2020-04-18 12:54] VITALS: BP 138/72
[2020-04-18] MEDS: ENOXAPARIN 40 MG/0.4 ML (LOVENOX) SYR SC SCH (13:21)
[2020-04-18 15:30] VITALS: BP 138/85
[2020-04-18 20:00] VITALS: BP 135/67
[2020-04-18] MEDS: ONDANSETRON 4 MG/2 ML (SDV) Z0FRAN IVP PRN (20:53)
[2020-04-19] VITALS: BP 142/82
[2020-04-19 04:00] VITALS: BP 136/71
[2020-04-19] MEDS: metroNIDAZOLE 500MG/100ML IVPB 100 ML IV SCH ×2 (05:04→09:01)
[2020-04-19] MEDS: POTASSIUM CHLORIDE INJ 20 MEQ in D5 LR IV SOLUTION 1,000 ML IV SCH (05:04)
[2020-04-19 07:14] LABS: HEMOGLOBIN 11.4 g/dL (11.5-16.0); MEAN PLATELET VOLUME 11.3 fL (9.0-12.2); WHITE BLOOD COUNT 4.9 10^3/uL (4.3-11.0)
[2020-04-19 07:32] LABS: CHLORIDE 107 MMOL/L (98-107); POTASSIUM 4.1 MMOL/L (3.6-5.0); SODIUM 141 MMOL/L (135-145)
[2020-04-19 07:34] LABS: GLUCOSE 107 MG/DL (70-105)
[2020-04-19 07:35] LABS: CARBON DIOXIDE 23 MMOL/L (21-32)
[2020-04-19 07:38] LABS: CREATININE SERUM 0.79 MG/DL (0.60-1.30); GFR ESTIMATED > 60
[2020-04-19 07:39] LABS: BUN/CREATININE RATIO 5
--- NOTE | 2020-04-19 08:30 | NUR ---
DR. PAREDES ON FLOOR TO ASSESS PATIENT AND GAVE VERBAL ORDER TO INFUSE FLAGYL NOW WITH CIPRO TO GET PATIENT OUT SOONER
[2020-04-19 08:33] VITALS: BP 122/60
[2020-04-19] MEDS: CIPROFLOXACIN IV 400MG/200ML 200 ML IV SCH (08:54)
[2020-04-19] MEDS ORDERED: LACT1CAP90 PO (09:07)
--- NOTE | 2020-04-19 09:08 | Discharge Inst-Simple/Standard ---
Discharge Inst-Standard Reconcile Patient Problems Problems Reviewed?: Yes Discharge Medications New, Converted or Re-Newed RX: Transmitted to Pharmacy Patient Instructions/Follow Up Plan of Care/Instructions/FU: 1 WK [facility] Activity as Tolerated: Yes Discharge Diet: Low Residue Return to The Hospital For: ANY WORSENING ABDOMINAL PAIN, NAUSEA, BLOODY STOOLS, OR CONCERN FOR LIFETHREATENING ILLNES OR INJURY Medication List: Active Scripts Active Ultimate Anel Probiotic Dr Roberson (Lactobac No.30/Bifidobact No.4) 1 Each Caps ule. 1 Each PO DAILY Reported Ondansetron Odt (Ondansetron) 4 Mg Tab.rapdis 4 Mg PO Q4H PRN Cipro (Ciprofloxacin HCl) 500 Mg Tablet 500 Mg PO BID FILLED 04-14-2020 #14 DAY SUPPLY Metronidazole 500 Mg Tablet 500 Mg PO TID FILLED 04-14-2020 #21 DAY SUPPLY Multivitamin 1 Each Tablet 1 Each PO DAILY Tylenol Extra Strength (Acetaminophen) 500 Mg Tablet 1,000 Mg PO Q8H PRN Aspirin EC (Aspirin) 81 Mg Tablet. 81 Mg PO DAILY Atorvastatin Calcium 40 Mg Tablet 40 Mg PO DAILY Lab results: Laboratory Tests Test 04/19/20 06:34 04/19/20 06:54 Range/Units White Blood Count 4.9 4.3-11.0 10^3/uL Red Blood Count 3.73 L 3.80-5.11 10^6/uL Hemoglobin 11.4 L 11.5-16.0 g/dL Hematocrit 35 35-52 % Mean Corpuscular Volume 93 80-99 fL Mean Corpuscular Hemoglobin 31 25-34 pg Mean Corpuscular Hemoglobin Concent 33 32-36 g/dL Red Cell Distribution Width 12.6 10.0-14.5 % Platelet Count 239 130-400 10^3/uL Mean Platelet Volume 11.3 9.0-12.2 fL Sodium Level 141 135-145 MMOL/L Potassium Level 4.1 3.6-5.0 MMOL/L Chloride Level 107 98-107 MMOL/L Carbon Dioxide Level 23 21-32 MMOL/L Anion Gap 11 5-14 MMOL/L Blood Urea Nitrogen 4 L 7-18 MG/DL Creatinine 0.79 0.60-1.30 MG/DL Estimat Glomerular Filtration Rate > 60 BUN/Creatinine Ratio 5 Glucose Level 107 H 70-105 MG/DL Calcium Level 9.0 8.5-10.1 MG/DL My orders: Orders - CHRIS PAREDES MD Diet Advance As Tolerated (04/18/20 09:28) Cbc No Diff (04/19/20 06:00) Basic Metabolic Panel (04/19/20 06:00) Attending Discharge Inpt/Inobs (04/19/20 09:06) CHRIS PAREDES MD Apr 19, 2020 09:08
--- NOTE | 2020-04-19 10:01 | Discharge Summary ---
Diagnosis/Chief Complaint Date of Admission Apr 16, 2020 at 11:40 Date of Discharge Discharge Date: Apr 19, 2020 Discharge Time: 1100 Admission Diagnosis Admission Diagnosis ACUTE DIVERTICULITIS DIARRHEA NAUSEA INABILITY TO TAKE ORAL ANTIBIOTICS DUE TO NAUSEA CHRONIC CROHNS DISEASE DEHYDRATION ABDOMINAL PAIN Discharge Diagnosis ACUTE DIVERTICULITIS DIARRHEA NAUSEA INABILITY TO TAKE ORAL ANTIBIOTICS DUE TO NAUSEA CHRONIC CROHNS DISEASE DEHYDRATION ABDOMINAL PAIN Reason Hospital Visit PT IS A 70 Y/O FEMALE WHO IS WELL KNOWN TO ME FROM CLINIC. SHE PRESENTED TO THE OFFICE TODAY AFTER HAVING BEEN SEEN IN THE ER TWO DAYS PRIOR FOR ABDOMINAL PAIN. SHE WAS DIAGNOSED WITH ACUTE DIVERTICULITIS AND SENT HOME ON ORAL ANTIBIOTICS. APPARENTLY SHE HAS NOT BEEN ABLE TO KEEP THE ORAL MEDICATION DOWN DUE TO HER PAIN AND NAUSEA AND HAS HAD PROGRESSIVE ABDOMINAL DISCOMFORT WITH EXTENSIVE DIARRHEA AND HAS NOT BEEN ABLE TO EAT OR DRINK TO KEEP UP WITH HER GI LOSSES. Discharge Summary Discharge Physical Examination Allergies: Coded Allergies: codeine (Verified Allergy, Mild, 09/05/16) Vitals & I&Os Vital Signs Date Time Temp Pulse Resp B/P (MAP) Pulse Ox O2 Delivery O2 Flow Rate FiO2 04/19/20 08:33 37.4 86 18 122/60 (80) 94 Room Air General Appearance: Alert, Oriented X3, Cooperative, No Acute Distress HEENT: Atraumatic, PERRLA, Mucous Memb Moist/[place] Respiratory: Clear to Auscultation, Normal Air Movement Cardiovascular: Regular Rate Abdominal: Normal Bowel Sounds, Soft, Other (MILDLY TENDER TO PALPATION LEFT LOWER ABDOMEN) Extremities: No Clubbing, No Cyanosis, No Edema Skin: No Rashes, No Breakdown, No Significant Lesion Neuro: Normal Speech, Cranial Nerves 3-12 NL Psych/Mental Status: Mental Status NL, Mood NL Hospital Course ACUTE DIVERTICULITIS DIARRHEA NAUSEA INABILITY TO TAKE ORAL ANTIBIOTICS DUE TO NAUSEA CHRONIC CROHNS DISEASE DEHYDRATION ABDOMINAL PAIN ACUTE DIVERTICULITIS WITH DIARRHEA, NAUSEA AND INABILITY TO TAKE ORAL ANTI BIOTICS DUE TO NAUSEA - IV FLAGYL, CIPRO, IV FLUIDS, MONITOR OUTPUT, WILL NOT SLOW DOWN HER DIARRHEA WITH IMMODIUM AT THIS TIME, MONITOR SYMPTOMS. - IV ZOFRAN FOR NAUSEA - NAUSEA RESOLVED, DOES NOT NEED ZOFRAN ON DISCHARGE - ADVANCED DIET TO SOFT DIET, MONITOR OUTPUT ON THE SOFT DIET - PT NOT TOLERATING THE PROBIOTICS - THEREFORE AFTER STOPPING THE MEDICATION HER STOOLS DID SLOW DOWN SLIGHTLY, MONITOR OUTPATIENT. - DISCUSSED WITH THE PATIENT - SHE WILL ONLY BE TAKING METRONIDAZOLE (FLAGYL) OUTPATIENT AND NO LONGER BE TAKING CIPRO ON DISCHARGE. CHRONIC CROHNS DISEASE - SUPPORTIVE CARE DEHYDRATION - IMPROVED ON IV FLUIDS, MONITOR INTAKE, OUTPUT. ABDOMINAL PAIN -RESOLVED WITH TREATMENT OF DIVERTICULITIS DISCUSSED WITH KAREN AND HER PAT - SINCE HER PAIN HAS IMPROVED SIGNIFICANTLY AND HER DIARRHEA HAS IMPROVED - AND SHE HAS TOLERATED ORAL DIETARY INTAKE, MONITOR AT HOME AND ADVANCE DIET TOLERATED AT HOME. Pending Labs Laboratory Tests 04/19/20 06:34: White Blood Count 4.9, Red Blood Count 3.73, Hemoglobin 11.4, Hematocrit 35, Mean Corpuscular Volume 93, Mean Corpuscular Hemoglobin 31, Mean Corpuscular Hemoglobin Concent 33, Red Cell Distribution Width 12.6, Platelet Count 239, Mean Platelet Volume 11.3 04/19/20 06:54: Sodium Level 141, Potassium Level 4.1, Chloride Level 107, Carbon Dioxide Level 23, Anion Gap 11, Blood Urea Nitrogen 4, Creatinine 0.79, Estimat Glomerular Filtration Rate > 60, BUN/Creatinine Ratio 5, Glucose Level 107, Calcium Level 9.0 Discharge Condition at discharge IMPROVED Instructions to patient/family Please see electronic discharge instructions given to patient. Discharge Medications Reviewed and agree with Discharge Medication list on patient's Discharge Instruction sheet Clinical Quality Measures DVT/VTE Risk/Contraindication: Risk Factor Score Per Nursin RFS Level Per Nursing on Admit: 4+=Very High CHRIS PAREDES MD Apr 19, 2020 10:01
[2020-04-19 10:50] VITALS: BP 122/60
== END 2020-04-19 10:50 | disposition home or self-care (01) | DRG 392 ==
LOC: 4TH 11:40
PROVIDERS: ADMIT Family Medicine; ATTEND Family Medicine
DX: K57.92 Diverticulitis of intestine, part unspecified, without perforation or abscess without bleeding (principal); K50.90 Crohn's disease, unspecified, without complications; E86.0 Dehydration; R19.7 Diarrhea, unspecified; J44.9 Chronic obstructive pulmonary disease, unspecified; I25.10 Atherosclerotic heart disease of native coronary artery without angina pectoris; I10 Essential (primary) hypertension; E78.00 Pure hypercholesterolemia, unspecified; Z87.891 Personal history of nicotine dependence; Z95.820 Peripheral vascular angioplasty status with implants and grafts; Z90.710 Acquired absence of both cervix and uterus; Z90.722 Acquired absence of ovaries, bilateral; Z90.49 Acquired absence of other specified parts of digestive tract; Z90.89 Acquired absence of other organs
CPT/HCPCS: 36415; 80048; 80053; 81000; 83605; 85025; 85027; 87040; 87635

== ENCOUNTER 2020-05-13 05:51 | Emergency (ER) | payer MEDICARE, OTHER ==
[~2020-05-13] VITALS: Ht 157 cm; Wt 67.2 kg
[~2020-05-13 05:51] MED LIST changes: +ACET-2267 PO; +CIPR-225 PO; +LACT1CAP90 PO; +METR-145 PO; +MULT-1136 PO
[2020-05-13] MEDS ORDERED: LACTATED RINGERS 1,000 ML IV STA (08:56)
[2020-05-13] MEDS ORDERED: ANTACID SUSP 30 ML UDC (MYLANTA) PO ONE (09:00)
[2020-05-13] MEDS ORDERED: ONDANSETRON 4 MG/2 ML (SDV) Z0FRAN IVP ONE (09:00)
[2020-05-13] MEDS ORDERED: fentaNYL INJECTION 100 MCG/2 ML AMP IVP ONE (09:00)
[2020-05-13] MEDS ORDERED: LIDOCAINE 2% VISCOUS 15 ML UDC PO ONE (09:00)
--- NOTE | 2020-05-13 09:00 | ED Abdominal Pain ---
General Chief Complaint: Abdominal/GI Problems Stated Complaint: ABD PAIN,TESTED COVID- LAST MONDAY Nursing Triage Note: AMB TO ROOM WITH C/O OF ABD PAIN SINCE 2AM Sepsis Screen: No Definite Risk Source of Information: Patient Exam Limitations: No Limitations History of Present Illness Date Seen by Provider: May 13, 2020 Time Seen by Provider: 08:30 Initial Comments Patient presents ER by private conveyance from home with chief complaint of severe 10 over 10 pain initially down to 6 out of 10 when she's in the ER all over abdominal pain. She says she is unable to produce small amounts of stool but is still passing flatus as of last night. She has a history of small bowel obstruction had to have [address] Warren several years ago. She also has a history of diverticulitis. She has had her gallbladder and appendix out as well as hysterectomy and tonsils and adenoids. She is not having any fevers chills. She has nausea without vomiting. She has no blood in the stool. She rates her pain as a 6 on a 10 right now crampy, intermittent. No dysuria cough shortness of breath. Allergies and Home Medications Allergies Coded Allergies: codeine (Verified Allergy, Mild, 09/05/16) Home Medications Acetaminophen 500 Mg Tablet, 1,000 MG PO Q8H PRN for PAIN-MILD (1-4) OR TEMPATURE, (Reported) Aspirin 81 Mg Tablet., 81 MG PO DAILY, (Reported) Atorvastatin Calcium 40 Mg Tablet, 40 MG PO DAILY, (Reported) Lactobac No.30/Bifidobact No.4 1 Each Capsule., 1 EACH PO DAILY Prescribed by: CHRIS PAREDES on 04/19/20 0907 Metronidazole 500 Mg Tablet, 500 MG PO TID, (Reported) FILLED 04-14-2020 #21/7 DAY SUPPLY Multivitamin 1 Each Tablet, 1 EACH PO DAILY, (Reported) Ondansetron 4 Mg Tab.rapdis, 4 MG PO Q4H PRN for NAUSEA/VOMITING-1ST LINE, (Reported) Patient Home Medication List Home Medication List Reviewed: Yes Review of Systems Review of Systems Constitutional: No chills, No diaphoresis EENTM: No Blurred Vision, No Double Vision Respiratory: Denies Cough, Denies Shortness of Air Cardiovascular: Denies Chest Pain, Denies Irregular Heart Rate, Denies Lightheadedness Gastrointestinal: See HPI; Denies Abdomen Distended; Abdominal Pain, Constipated, Nausea, Vomiting Genitourinary: Denies Burning, Denies Discharge Musculoskeletal: No back pain, No joint pain Skin: No pruritus, No rash Psychiatric/Neurological: Denies Headache, Denies Numbness All Other Systems Reviewed Negative Unless Noted: Yes Past Cynvjvc-Dqlfff-Ceggmk Hx Patient Social History Alcohol Use: Occasionally Uses Recreational Drug Use: No Smoking Status: Former Smoker Type Used: Cigarettes 2nd Hand Smoke Exposure: No Recent Foreign Travel: No Contact w/Someone Who Travel: No Recent Infectious Disease Expo: No Recent Hopitalizations: No Immunizations Up To Date Tetanus Booster (TDap): Less than 5yrs PED Vaccines UTD: Yes Date of Pneumonia Vaccine: Jun 19, 2016 Date of Influenza Vaccine: Jun 19, 2016 Seasonal Allergies Seasonal Allergies: No Past Medical History Surgeries: Yes (CATARACT,HYST,APPY,T&A, stents in left leg and kidney) Abdominal, Adenoidectomy, Appendectomy, Bowel Surgery, Cardiac, Eye Surgery, Gallbladder, 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, Oophorectomy, Tonsillectomy Respiratory: Yes COPD Cardiac: Yes (HEART CATH) Coronary Artery Disease, High Cholesterol, Hypertension Neurological: No 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 Disorders: Yes (HYST-HAS 1 OVARY) 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 Genitourinary: No Gastrointestinal: Yes (EOSINPHILIC ENTERITITS; SBO) Gastrointestinal Bleed, Obstructive Bowel Musculoskeletal: Yes (ROTATOR CUFF PAIN) Endocrine: No HEENT: Yes Cataract Loss of Vision: Bilateral Cancer: No Psychosocial: No Integumentary: No Blood Disorders: No Adverse Reaction/Blood Tranf: No Family Medical History Cardiovascular disease 19 FATHER Neoplasm 19 MOTHER (colon cancer) G8 SISTER (uterine cancer) Respiratory disorder 19 FATHER Heart Disease, Cancer Physical Exam Vital Signs Vital Signs - First Documented 05/13/20 07:22 Temp 36.9 Pulse 106 Resp 18 B/P (MAP) 124/87 (99) Pulse Ox 99 O2 Delivery Room Air Capillary Refill : Less Than 3 Seconds Height/Weight/BMI Height: 5'4.00" Weight: 140lbs. 3.0oz. [id number]; 27.00 BMI Method:Stated General Appearance: WD/WN, no apparent distress HEENT: normal ENT inspection, pharynx normal Neck: full range of motion, normal inspection Respiratory: lungs clear, normal breath sounds, no respiratory distress, no accessory muscle use Cardiovascular: normal peripheral pulses, regular rate, rhythm Peripheral Pulses: 2+ Radial Pulses (R), 2+ Radial Pulses (L) Gastrointestinal: normal bowel sounds, soft, no organomegaly, tenderness (all 4 quadrants) Extremities: normal inspection, normal capillary refill Neurologic/Psychiatric: alert, normal mood/affect, oriented x 3 Skin: normal color, warm/dry Progress/Results/Core Measures Results/Orders Lab Results Laboratory Tests Test 05/13/20 07:24 05/13/20 09:30 Range/Units White Blood Count 10.4 4.3-11.0 10^3/uL Red Blood Count 4.58 3.80-5.11 10^6/uL Hemoglobin 13.9 11.5-16.0 g/dL Hematocrit 44 35-52 % Mean Corpuscular Volume 96 80-99 fL Mean Corpuscular Hemoglobin 30 25-34 pg Mean Corpuscular Hemoglobin Concent 32 32-36 g/dL Red Cell Distribution Width 13.2 10.0-14.5 % Platelet Count 240 130-400 10^3/uL Mean Platelet Volume 11.6 9.0-12.2 fL Immature Granulocyte % (Auto) 1 % Neutrophils (%) (Auto) 76 H 42-75 % Lymphocytes (%) (Auto) 16 12-44 % Monocytes (%) (Auto) 7 0-12 % Eosinophils (%) (Auto) 0 0-10 % Basophils (%) (Auto) 0 0-10 % Neutrophils # (Auto) 7.9 H 1.8-7.8 10^3/uL Lymphocytes # (Auto) 1.6 1.0-4.0 10^3/uL Monocytes # (Auto) 0.8 0.0-1.0 10^3/uL Eosinophils # (Auto) 0.0 0.0-0.3 10^3/uL Basophils # (Auto) 0.0 0.0-0.1 10^3/uL Immature Granulocyte # (Auto) 0.1 0.0-0.1 10^3/uL Sodium Level 137 135-145 MMOL/L Potassium Level 4.3 3.6-5.0 MMOL/L Chloride Level 102 98-107 MMOL/L Carbon Dioxide Level 22 21-32 MMOL/L Anion Gap 13 5-14 MMOL/L Blood Urea Nitrogen 12 7-18 MG/DL Creatinine 0.86 0.60-1.30 MG/DL Estimat Glomerular Filtration Rate > 60 BUN/Creatinine Ratio 14 Glucose Level 102 70-105 MG/DL Calcium Level 8.6 8.5-10.1 MG/DL Corrected Calcium 8.4 L 8.5-10.1 MG/DL Total Bilirubin 0.2 0.1-1.0 MG/DL Aspartate Amino Transf (AST/SGOT) 27 5-34 U/L Alanine Aminotransferase (ALT/SGPT) 33 0-55 U/L Alkaline Phosphatase 69 40-136 U/L Total Protein 7.4 6.4-8.2 GM/DL Albumin 4.2 3.2-4.5 GM/DL Lipase 16 8-78 U/L Urine Color YELLOW Urine Clarity CLEAR Urine pH 5.5 5-9 Urine Specific Kemp 1.025 H 1.016-1.022 Urine Protein NEGATIVE NEGATIVE Urine Glucose (UA) NEGATIVE NEGATIVE Urine Ketones TRACE H NEGATIVE Urine Nitrite NEGATIVE NEGATIVE Urine Bilirubin NEGATIVE NEGATIVE Urine Urobilinogen 0.2 < = 1.0 MG/DL Urine Leukocyte Esterase NEGATIVE NEGATIVE Urine RBC (Auto) TRACE-L NEGATIVE Urine RBC RARE /HPF Urine WBC 0-2 /HPF Urine Squamous Epithelial Cells 0-2 /HPF Urine Crystals NONE /LPF Urine Bacteria TRACE /HPF Urine Casts NONE /LPF Urine Mucus SMALL H /LPF Urine Culture Indicated NO My Orders Orders - STEVENSON MONTIEL Fentanyl Injection (Sublimaze Injection (05/13/20 09:00) Ondansetron Injection (Zofran Injectio (05/13/20 09:00) Lactated Ringers (Lr 1000 Ml Iv Solution (05/13/20 08:56) Cbc With Automated Diff (05/13/20 08:56) Comprehensive Metabolic Panel (05/13/20 08:56) Lipase (05/13/20 08:56) Ua Culture If Indicated (05/13/20 08:56) Ct Abdomen/Pelvis W (05/13/20 08:56) Iohexol Injection (Omnipaque 350 Mg/Ml 1 (05/13/20 09:45) Received Contrast (Hold Metformin- Contr (05/13/20 09:45) Sodium Chloride Flush (Catheter Flush Sy (05/13/20 09:45) Ns (Ivpb) (Sodium Chloride 0.9% Ivpb Bag (05/13/20 09:45) Medications Given in ED Current Medications Medications Dose Ordered Sig/Toby Route Start Time Stop Time Status Last Admin Dose Admin Fentanyl Citrate 50 mcg ONCE ONCE IVP 05/13/20 09:00 05/13/20 09:01 DC 05/13/20 09:05 50 MCG Iohexol 100 ml ONCE ONCE IV 05/13/20 09:45 05/13/20 09:46 DC 05/13/20 10:43 79 ML Ondansetron HCl 4 mg ONCE ONCE IVP 05/13/20 09:00 05/13/20 09:01 DC 05/13/20 09:04 4 MG Sodium Chloride 100 ml ONCE ONCE IV 05/13/20 09:45 05/13/20 09:46 DC 05/13/20 10:43 80 ML Vital Signs/I&O 05/13/20 07:22 Temp 36.9 Pulse 106 Resp 18 B/P (MAP) 124/87 (99) Pulse Ox 99 O2 Delivery Room Air Blood Pressure Mean: 99 Progress Progress Note #1: Time: 09:21 Progress Note Bowel obstruction less likely diverticulitis. Plan to get IV contrast CT give her some labs and medicine. After the fentanyl her pain is significantly improved. Progress Note #2: Time: 11:32 Progress Note Patient is significantly better. Were going to give her some Flagyl and Cipro. We discussed outpatient versus inpatient treatment and she would prefer to do outpatient therapy. 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 Diagnostic Imaging Diagonstic Imaging: CT Plain Films/CT/US/NM/MRI: abdomen, pelvis Comments [facility]. [place], [place] NAME: SHANAE SERRATO [facility] REC#: [id number] PT STATUS: REG ER : 1950 PHYSICIAN: STEVENSON MONTIEL MD ADMIT DATE: 05/13/20/ER Draft Date of Exam:05/13/20 CT ABDOMEN/PELVIS W PROCEDURE: CT abdomen and pelvis with contrast. TECHNIQUE: Multiple contiguous axial images were obtained through the abdomen and pelvis after administration of intravenous contrast. Auto Exposure Controls were utilized during the CT exam to meet ALARA standards for radiation dose reduction. All CT scans use one or more of the following dose optimizing techniques: automated exposure control, MA and/or KvP adjustment based on patient size and exam type or iterative reconstruction. INDICATION: Pain. COMPARISON: 04/14/2020. FINDINGS: Segmental thickening of the mid to distal 3rd of the sigmoid colon with regional diverticulosis and perisigmoidal edema is once again identified and compatible with residual or recurrent features of sigmoid diverticulitis. There is some stool within the colon but the colon proximal to that is not abnormally dilated and no substantial small bowel dilatation to suggest anna obstruction. Bubbles of air along the margins of the sigmoid believed to be within regional diverticuli. No convincing evidence for extraluminal gas or free air deep to the abdominal wall. No abscess nor drainable fluid collection is present. There is no air and the bladder is lumen. No findings of its fistulization. A few inguinal lymph nodes likely reactive. Urinary tracts unobstructed. The gallbladder surgically absent. The liver, spleen, adrenals and pancreas nonacute. IMPRESSION: Similar appearance of sigmoid diverticulitis without free air, abscess or drainable fluid collection and no appreciable resultant bowel obstruction. Dictated on workstation # [id number] Dict: 05/13/20 1051 Trans: 05/13/20 1056 [id number] Interpreted by: REAL PARIKH Electronically signed by: Reviewed: Reviewed by Me Departure Impression Primary Impression: Diverticulitis of intestine Qualified Codes: K57.32 - Diverticulitis of large intestine without perforation or abscess without bleeding Disposition: 01 HOME, SELF-CARE Condition: Improved Departure-Patient Inst. Decision time for Depature: 11:35 Referrals: CHRIS PAREDES MD (PCP/Family) Primary Care Physician Patient Instructions: Diverticulitis (DC) Add. Discharge Instructions: Tylenol 650 mg every 8 hours as necessary for pain. Heating pads as necessary for pain. Hydrocodone one tablet every 6 hours as necessary for breakthrough pain. Hydrocodone will cause drowsiness and should not be mixed with alcohol. Ciprofloxacin one tablet twice daily for the next week. Flagyl 1 tablet twice daily for the next week. Ondansetron one tablet under the tongue every 6 hours as necessary for nausea and vomiting. 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 Follow-up next week with your primary care doctor for reevaluation. Return to the nearest ER should your experience intractable pain, nausea or other worrisome symptoms. All discharge instructions reviewed with patient and/or family. Voiced understanding. Scripts Lactobacillus Acidophilus (Probiotic) 1 Each Capsule 1 EACH PO BID for 7 Days, #14 CAP 0 Refills Prov: STEVENSON MONTIEL 05/13/20 Metronidazole (Flagyl) 500 Mg Tablet 500 MG PO BID for 7 Days, #14 TAB 0 Refills Prov: STEVENSON MONTIEL 05/13/20 Ciprofloxacin HCl (Ciprofloxacin HCl) 500 Mg Tablet 500 MG PO BID, #14 TAB 0 Refills Prov: STEVENSON MONTIEL 05/13/20 Ondansetron (Ondansetron Odt) 4 Mg Tab.rapdis 4 MG PO Q6H PRN for NAUSEA/VOMITING, #12 TAB 0 Refills Prov: STEVENSON MONTIEL 05/13/20 Copy Copies To 1: CHRIS PAREDES MD, TITUS J May 13, 2020 09:00
[2020-05-13 09:09] LABS: BASOPHILS % (AUTO) 0 % (0-10); EOSINOPHILS % (AUTO) 0 % (0-10); HEMATOCRIT 44 % (35-52); HEMOGLOBIN 13.9 g/dL (11.5-16.0); LYMPHOCYTES # (AUTO) 1.6 10^3/uL (1.0-4.0); LYMPHOCYTES % (AUTO) 16 % (12-44); MEAN CORPUSCULAR HEMOGLOBIN 30 pg (25-34); MEAN CORPUSCULAR HGB CONC 32 g/dL (32-36); MEAN CORPUSCULAR VOLUME 96 fL (80-99); MEAN PLATELET VOLUME 11.6 fL (9.0-12.2); MONOCYTES # (AUTO) 0.8 10^3/uL (0.0-1.0); MONOCYTES % (AUTO) 7 % (0-12); NEUTROPHILS # (AUTO) 7.9 10^3/uL (1.8-7.8); NEUTROPHILS % (AUTO) 76 % (42-75); PLATELET COUNT 240 10^3/uL (130-400); WHITE BLOOD COUNT 10.4 10^3/uL (4.3-11.0)
[2020-05-13 09:13] LABS: ALBUMIN 4.2 GM/DL (3.2-4.5)
[2020-05-13 09:14] LABS: CHLORIDE 102 MMOL/L (98-107); POTASSIUM 4.3 MMOL/L (3.6-5.0); SODIUM 137 MMOL/L (135-145)
[2020-05-13 09:15] LABS: CALCIUM 8.6 MG/DL (8.5-10.1)
[2020-05-13 09:16] LABS: GLUCOSE 102 MG/DL (70-105); TOTAL PROTEIN 7.4 GM/DL (6.4-8.2)
[2020-05-13 09:17] LABS: CARBON DIOXIDE 22 MMOL/L (21-32)
[2020-05-13 09:18] LABS: BILIRUBIN,TOTAL 0.2 MG/DL (0.1-1.0)
[2020-05-13 09:19] LABS: ALKALINE PHOSPHATASE 69 U/L (40-136)
[2020-05-13 09:20] LABS: CREATININE SERUM 0.86 MG/DL (0.60-1.30); GFR ESTIMATED > 60
[2020-05-13 09:21] LABS: BUN/CREATININE RATIO 14
[2020-05-13 09:23] LABS: ALANINE AMINOTRANSFERASE 33 U/L (0-55); LIPASE 16 U/L (8-78)
[2020-05-13] MEDS ORDERED: CATHETER FLUSH 10 ML SYR IV PRN (09:45)
[2020-05-13] MEDS ORDERED: IOHEXOL 350 MG/ML 100 ML (OMNIPAQUE 350) VIAL IV ONE (09:45)
[2020-05-13] MEDS ORDERED: HOLD METFORMIN - RECEIVED CONTRAST 20 ML VIAL IV SCH (09:45)
[2020-05-13] MEDS ORDERED: NS 100 ML (IVPB) BAG IV ONE (09:45)
[2020-05-13 09:56] LABS: BILIRUBIN,URINE NEGATIVE (NEGATIVE); CLARITY,URINE CLEAR; COLOR,URINE YELLOW; GLUCOSE, URINE (UA) NEGATIVE (NEGATIVE); KETONES,URINE TRACE (NEGATIVE); LEUKOCYTE ESTERASE ,URINE NEGATIVE (NEGATIVE); NITRITE,URINE NEGATIVE (NEGATIVE); PH,URINE 5.5 (5-9); PROTEIN,URINE NEGATIVE (NEGATIVE)
[2020-05-13 10:12] LABS: BACTERIA,URINE TRACE /HPF; RBC,URINE RARE /HPF; WBC,URINE 0-2 /HPF
[2020-05-13 10:13] LABS: SQUAMOUS EPITHELIAL CELL,UR 0-2 /HPF
--- NOTE | 2020-05-13 10:56 | Diagnostic Imaging Report ---
PROCEDURE: CT abdomen and pelvis with contrast. TECHNIQUE: Multiple contiguous axial images were obtained through the abdomen and pelvis after administration of intravenous contrast. Auto Exposure Controls were utilized during the CT exam to meet ALARA standards for radiation dose reduction. All CT scans use one or more of the following dose optimizing techniques: automated exposure control, MA and/or KvP adjustment based on patient size and exam type or iterative reconstruction. INDICATION: Pain. COMPARISON: 04/14/2020. FINDINGS: Segmental thickening of the mid to distal 3rd of the sigmoid colon with regional diverticulosis and perisigmoidal edema is once again identified and compatible with residual or recurrent features of sigmoid diverticulitis. There is some stool within the colon but the colon proximal to that is not abnormally dilated and no substantial small bowel dilatation to suggest anna obstruction. Bubbles of air along the margins of the sigmoid believed to be within regional diverticuli. No convincing evidence for extraluminal gas or free air deep to the abdominal wall. No abscess nor drainable fluid collection is present. There is no air and the bladder is lumen. No findings of its fistulization. A few inguinal lymph nodes likely reactive. Urinary tracts unobstructed. The gallbladder surgically absent. The liver, spleen, adrenals and pancreas nonacute. IMPRESSION: Similar appearance of sigmoid diverticulitis without free air, abscess or drainable fluid collection and no appreciable resultant bowel obstruction. Dictated by: Dictated on workstation # [id number]
[2020-05-13] MEDS ORDERED: LACT1CAP62 PO (11:39)
[2020-05-13] MEDS ORDERED: CIPR500T4 PO ×2 (11:39→14:33)
[2020-05-13] MEDS ORDERED: ONDA4TAB11 PO ×2 (11:39→14:33)
[2020-05-13] MEDS ORDERED: ACHD5005 PO ×2 (11:39→14:33)
[2020-05-13] MEDS ORDERED: METR500T PO ×2 (11:39→14:33)
[2020-05-13] MEDS ORDERED: metroNIDAZOLE 500MG/100ML IVPB 100 ML IV ONE (11:45)
[2020-05-13] MEDS ORDERED: CIPROFLOXACIN IV 400MG/200ML 200 ML IV ONE (11:45)
[2020-05-13] MEDS ORDERED: HYDROcodone/APAP 5 MG/325 MG (LORTAB) TAB PO ONE (11:45)
[2020-05-13 13:27] VITALS: BP 144/67
== END 2020-05-13 13:27 | disposition home or self-care (01) ==
LOC: EDUNIT# 05:51 → ER 05:55
DX: K57.32 Diverticulitis of large intestine without perforation or abscess without bleeding (principal); E78.00 Pure hypercholesterolemia, unspecified; Z80.0 Family history of malignant neoplasm of digestive organs; Z82.49 Family history of ischemic heart disease and other diseases of the circulatory system; Z80.49 Family history of malignant neoplasm of other genital organs; Z87.891 Personal history of nicotine dependence; Z95.9 Presence of cardiac and vascular implant and graft, unspecified; Z79.82 Long term (current) use of aspirin; Z88.5 Allergy status to narcotic agent
CPT/HCPCS: 36415; 74177; 80053; 81000; 83690; 85025

== ENCOUNTER 2020-05-15 17:52 | Emergency (ER) | payer MEDICARE, OTHER ==
[~2020-05-15] VITALS: Ht 157 cm; Wt 66.2 kg
[~2020-05-15 17:52] MED LIST changes: +ACHD5005 PO; +LACT1CAP62 PO
[2020-05-15] MEDS ORDERED: PROMETHAZINE INJ 25 MG/ML (PHENERGAN) AMP ONE (18:27)
[2020-05-15] MEDS ORDERED: LACTATED RINGERS 1,000 ML IV ONE (18:27)
[2020-05-15] MEDS ORDERED: WATER (STERILE) FOR INJECTION 10 ML ONE (18:27)
[2020-05-15] MEDS ORDERED: cefTRIAXone 1,000 MG IV (ROCEPHIN) VIAL ONE (18:27)
[2020-05-15] MEDS ORDERED: LACTATED RINGERS 1,000 ML IV SCH (18:30)
[2020-05-15] MEDS ORDERED: PROMETHAZINE INJ 25 MG/ML (PHENERGAN) AMP IVP ONE (18:30)
[2020-05-15] MEDS ORDERED: cefTRIAXone FOR IV USE 1,000 MG in WATER (STERILE) FOR INJECTION 10 ML IV ONE (18:30)
--- NOTE | 2020-05-15 18:32 | ED General ---
General Stated Complaint: CHILLS;COVID-19 EXPOSURE Source of Information: Patient Exam Limitations: No Limitations History of Present Illness Date Seen by Provider: May 15, 2020 Time Seen by Provider: 18:30 Initial Comments To ER by private vehicle from home with reports of cough, fever, nausea. She has been using Zofran ODT at home without much relief. Fever up to 100.6, her is Covid positive. She was also seen here 2 days ago for lower abdominal pain diagnosed with recurrent diverticulitis. She has had significantly improved lower abdominal pain, still having bowel movements without blood. Timing/Duration: 1-2 Days Severity: Moderate Associated Systoms: Weakness Allergies and Home Medications Allergies Coded Allergies: codeine (Verified Allergy, Mild, 09/05/16) Home Medications Acetaminophen 500 Mg Tablet, 1,000 MG PO Q8H PRN for PAIN-MILD (1-4) OR TEMPATURE, (Reported) Aspirin 81 Mg Tablet.dr, 81 MG PO DAILY, (Reported) Atorvastatin Calcium 40 Mg Tablet, 40 MG PO DAILY, (Reported) Ciprofloxacin HCl 500 Mg Tablet, 500 MG PO BID Prescribed by: STEVENSON MONTIEL on 05/13/20 1433 Hydrocodone/Acetaminophen 1 Each Tablet, 1 EACH PO Q6H PRN for PAIN-BREAKTHROUGH Prescribed by: STEVENSON MONTIEL on 05/13/20 1433 Lactobac No.30/Bifidobact No.4 1 Each Capsule.dr, 1 EACH PO DAILY Prescribed by: CHRIS PAREDES on 04/19/20 0907 Lactobacillus Acidophilus 1 Each Capsule, 1 EACH PO BID Prescribed by: STEVENSON MONTIEL on 05/13/20 1139 Metronidazole 500 Mg Tablet, 500 MG PO TID, (Reported) FILLED 04-14-2020 #21/7 DAY SUPPLY Metronidazole 500 Mg Tablet, 500 MG PO TID Prescribed by: STEVENSON MONTIEL on 05/13/20 1433 Multivitamin 1 Each Tablet, 1 EACH PO DAILY, (Reported) Ondansetron 4 Mg Tab.rapdis, 4 MG PO Q4H PRN for NAUSEA/VOMITING-1ST LINE, (Reported) Ondansetron 4 Mg Tab.rapdis, 4 MG PO Q6H PRN for NAUSEA/VOMITING Prescribed by: STEVENSON MONTIEL on 05/13/20 1433 Promethazine HCl 25 Mg Tablet, 25 MG PO Q6H PRN for NAUSEA/VOMITING Prescribed by: KELSIE MARSHALL on 05/15/20 1909 Patient Home Medication List Home Medication List Reviewed: Yes Review of Systems Review of Systems Constitutional: see HPI, fever EENTM: see HPI Respiratory: no symptoms reported Cardiovascular: no symptoms reported Genitourinary: no symptoms reported Musculoskeletal: no symptoms reported Skin: no symptoms reported Psychiatric/Neurological: No Symptoms Reported Hematologic/Lymphatic: No Symptoms Reported Past Pgomdbe-Mcyqlc-Xqudts Hx Patient Social History Type Used: Cigarettes 2nd Hand Smoke Exposure: No Recent Hopitalizations: No Immunizations Up To Date Tetanus Booster (TDap): Less than 5yrs PED Vaccines UTD: Yes Date of Pneumonia Vaccine: Jun 19, 2016 Date of Influenza Vaccine: Jun 19, 2016 Seasonal Allergies Seasonal Allergies: No Past Medical History Surgeries: Yes (CATARACT,HYST,APPY,T&A, stents in left leg and kidney) Abdominal, Adenoidectomy, Appendectomy, Bowel Surgery, Cardiac, Eye Surgery, Gallbladder, 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, Oophorectomy, Tonsillectomy Respiratory: Yes COPD Cardiac: Yes (HEART CATH) Coronary Artery Disease, High Cholesterol, Hypertension Neurological: No 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 Disorders: Yes (HYST-HAS 1 OVARY) 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 Genitourinary: No Gastrointestinal: Yes (EOSINPHILIC ENTERITITS; SBO) Gastrointestinal Bleed, Obstructive Bowel Musculoskeletal: Yes (ROTATOR CUFF PAIN) Endocrine: No HEENT: Yes Cataract Loss of Vision: Bilateral Cancer: No Psychosocial: No Integumentary: No Blood Disorders: No Adverse Reaction/Blood Tranf: No Family Medical History Cardiovascular disease 19 FATHER Neoplasm 19 MOTHER (colon cancer) G8 SISTER (uterine cancer) Respiratory disorder 19 FATHER Heart Disease, Cancer Physical Exam Vital Signs Vital Signs - First Documented 05/15/20 05/15/20 18:31 19:03 Temp 38.1 Pulse 94 Resp 18 B/P (MAP) 132/91 (105) Pulse Ox 99 O2 Delivery Room Air Capillary Refill : Height, Weight, BMI Height: 5'4.00" Weight: 140lbs. 3.0oz. 63.364079ee; 27.00 BMI Method:Stated General Appearance: No Apparent Distress, WD/WN Eyes: Bilateral Eye Normal Inspection, Bilateral Eye PERRL, Bilateral Eye EOMI HEENT: PERRL/EOMI, TMs Normal Neck: Full Range of Motion, Normal Inspection Respiratory: Normal Breath Sounds, No Accessory Muscle Use, No Respiratory Distress Cardiovascular: Regular Rate, Rhythm, Normal Peripheral Pulses Gastrointestinal: Normal Bowel Sounds, Non Tender, Soft Extremity: Normal Capillary Refill, Normal Inspection Neurologic/Psychiatric: Alert, Oriented x3 Skin: Normal Color, Warm/Dry Focused Exam Lactate Level 05/15/20 18:57: Lactic Acid Level 1.04 Lactic Acid Level Laboratory Tests Test 05/15/20 18:57 Lactic Acid Level 1.04 MMOL/L (0.50-2.00) Progress/Results/Core Measures Suspected Sepsis SIRS Temperature: Pulse: Respiratory Rate: Laboratory Tests 05/15/20 18:25: White Blood Count 6.2 Blood Pressure / Mean: 05/15/20 18:57: Lactic Acid Level 1.04 Laboratory Tests 05/15/20 18:25: Creatinine 0.90, INR Comment 0.9, Platelet Count 184, Total Bilirubin 0.2 Results/Orders Lab Results Laboratory Tests Test 05/15/20 18:25 05/15/20 18:30 05/15/20 18:57 Range/Units White Blood Count 6.2 4.3-11.0 10^3/uL Red Blood Count 4.36 3.80-5.11 10^6/uL Hemoglobin 13.2 11.5-16.0 g/dL Hematocrit 41 35-52 % Mean Corpuscular Volume 93 80-99 fL Mean Corpuscular Hemoglobin 30 25-34 pg Mean Corpuscular Hemoglobin Concent 33 32-36 g/dL Red Cell Distribution Width 13.0 10.0-14.5 % Platelet Count 184 130-400 10^3/uL Mean Platelet Volume 10.8 9.0-12.2 fL Immature Granulocyte % (Auto) 1 % Neutrophils (%) (Auto) 71 42-75 % Lymphocytes (%) (Auto) 20 12-44 % Monocytes (%) (Auto) 8 0-12 % Eosinophils (%) (Auto) 0 0-10 % Basophils (%) (Auto) 0 0-10 % Neutrophils # (Auto) 4.4 1.8-7.8 10^3/uL Lymphocytes # (Auto) 1.2 1.0-4.0 10^3/uL Monocytes # (Auto) 0.5 0.0-1.0 10^3/uL Eosinophils # (Auto) 0.0 0.0-0.3 10^3/uL Basophils # (Auto) 0.0 0.0-0.1 10^3/uL Immature Granulocyte # (Auto) 0.1 0.0-0.1 10^3/uL Prothrombin Time 12.9 12.2-14.7 SEC INR Comment 0.9 0.8-1.4 Activated Partial Thromboplast Time 27 24-35 SEC Sodium Level 135 135-145 MMOL/L Potassium Level 3.9 3.6-5.0 MMOL/L Chloride Level 99 98-107 MMOL/L Carbon Dioxide Level 21 21-32 MMOL/L Anion Gap 15 H 5-14 MMOL/L Blood Urea Nitrogen 13 7-18 MG/DL Creatinine 0.90 0.60-1.30 MG/DL Estimat Glomerular Filtration Rate > 60 BUN/Creatinine Ratio 14 Glucose Level 92 70-105 MG/DL Calcium Level 8.2 L 8.5-10.1 MG/DL Corrected Calcium 8.4 L 8.5-10.1 MG/DL Total Bilirubin 0.2 0.1-1.0 MG/DL Aspartate Amino Transf (AST/SGOT) 22 5-34 U/L Alanine Aminotransferase (ALT/SGPT) 24 0-55 U/L Alkaline Phosphatase 58 40-136 U/L Lactate Dehydrogenase 193 125-220 U/L C-Reactive Protein High Sensitivity 4.61 H 0.00-0.50 MG/DL Total Protein 7.1 6.4-8.2 GM/DL Albumin 3.8 3.2-4.5 GM/DL Procalcitonin 0.11 H <0.10 NG/ML Coronavirus 2019 ([facility]) Positive H Negative Lactic Acid Level 1.04 0.50-2.00 MMOL/L My Orders Orders - KELSIE MARSHALL APRN Lactated Ringers (Lr 1000 Ml Iv Solution (05/15/20 18:30) Promethazine Injection (Phenergan Injec (05/15/20 18:30) Ceftriaxone For Iv Use (Rocephin For I (05/15/20 18:30) Rx-Promethazine Hcl (Rx-Phenergan Supp) (05/15/20 19:09) Medications Given in ED Current Medications Medications Dose Ordered Sig/Toby Route Start Time Stop Time Status Last Admin Dose Admin Promethazine HCl 12.5 mg ONCE ONCE IVP 05/15/20 18:30 05/15/20 18:31 DC 05/15/20 18:35 12.5 MG Vital Signs/I&O 05/15/20 05/15/20 18:31 19:03 Temp 38.1 Pulse 94 Resp 18 B/P (MAP) 132/91 (105) Pulse Ox 99 O2 Delivery Room Air Capillary Refill : Diagnostic Imaging Diagonstic Imaging: Xray Plain Films/CT/US/NM/MRI: chest Comments NAME: SHANAE SERRATO [facility] REC#: [id number] PT STATUS: REG ER : 1950 PHYSICIAN: KANDY YANCEY MD ADMIT DATE: 05/15/20/ER Signed Date of Exam:05/15/20 CHEST 1 VIEW, AP/PA ONLY INDICATION: Sepsis. EXAMINATION: Single view of the chest was obtained. FINDINGS: No focal consolidation, effusion or pneumothorax. There is symmetrical air trapping. IMPRESSION: Clear hyperexpanded lungs. Dictated by: Dictated on workstation # [id number] Dict: 05/15/201905 Trans: 05/15/[address] [facility] [id number] Interpreted by: REAL PARIKH Electronically signed by: RELA PARIKH 05/15/201912 Departure Impression Primary Impression: COVID-19 Additional Impression: Nausea and vomiting Disposition: 01 HOME, SELF-CARE Condition: Stable Departure-Patient Inst. Decision time for Depature: 19:08 Referrals: CHRIS PAREDES MD (PCP/Family) Primary Care Physician Patient Instructions: COVID19 Add. Discharge Instructions: Continue the antibiotics as directed. Take the nausea medication as needed. Return to ER for any worsening. Scripts Promethazine HCl (Promethazine Tablet) 25 Mg Tablet 25 MG PO Q6H PRN for NAUSEA/VOMITING, #10 TAB Prov: KELSIE MARSHALL CUSTOM VAN CONVERTER 05/15/20 KELSIE MARSHALL APRN May 15, 2020 18:32
[2020-05-15 18:38] LABS: BASOPHILS % (AUTO) 0 % (0-10); EOSINOPHILS % (AUTO) 0 % (0-10); HEMATOCRIT 41 % (35-52); HEMOGLOBIN 13.2 g/dL (11.5-16.0); LYMPHOCYTES # (AUTO) 1.2 10^3/uL (1.0-4.0); LYMPHOCYTES % (AUTO) 20 % (12-44); MEAN CORPUSCULAR HEMOGLOBIN 30 pg (25-34); MEAN CORPUSCULAR HGB CONC 33 g/dL (32-36); MEAN CORPUSCULAR VOLUME 93 fL (80-99); MEAN PLATELET VOLUME 10.8 fL (9.0-12.2); MONOCYTES # (AUTO) 0.5 10^3/uL (0.0-1.0); MONOCYTES % (AUTO) 8 % (0-12); NEUTROPHILS # (AUTO) 4.4 10^3/uL (1.8-7.8); NEUTROPHILS % (AUTO) 71 % (42-75); PLATELET COUNT 184 10^3/uL (130-400); WHITE BLOOD COUNT 6.2 10^3/uL (4.3-11.0)
[2020-05-15 18:49] LABS: ALBUMIN 3.8 GM/DL (3.2-4.5); CHLORIDE 99 MMOL/L (98-107); INR 0.9 (0.8-1.4); POTASSIUM 3.9 MMOL/L (3.6-5.0); PROTHROMBIN TIME PATIENT 12.9 SEC (12.2-14.7); SODIUM 135 MMOL/L (135-145)
[2020-05-15 18:50] LABS: CALCIUM 8.2 MG/DL (8.5-10.1)
[2020-05-15 18:52] LABS: GLUCOSE 92 MG/DL (70-105); TOTAL PROTEIN 7.1 GM/DL (6.4-8.2)
[2020-05-15 18:53] LABS: BILIRUBIN,TOTAL 0.2 MG/DL (0.1-1.0); CARBON DIOXIDE 21 MMOL/L (21-32)
[2020-05-15 18:55] LABS: ALKALINE PHOSPHATASE 58 U/L (40-136); GFR ESTIMATED > 60
[2020-05-15 18:56] LABS: BUN/CREATININE RATIO 14
[2020-05-15 18:58] LABS: ALANINE AMINOTRANSFERASE 24 U/L (0-55)
[2020-05-15] MEDS ORDERED: RX-PHENERGAN 25 MG SUPP PPK#3 PR STA (19:09)
[2020-05-15] MEDS ORDERED: PROM25TA14 PO (19:09)
--- NOTE | 2020-05-15 19:15 | Diagnostic Imaging Report ---
INDICATION: Sepsis. EXAMINATION: Single view of the chest was obtained. FINDINGS: No focal consolidation, effusion or pneumothorax. There is symmetrical air trapping. IMPRESSION: Clear hyperexpanded lungs. Dictated by: Dictated on workstation # [id number]
[2020-05-15 19:50] VITALS: BP 163/76
== END 2020-05-15 19:50 | disposition home or self-care (01) ==
LOC: EDUNIT# 17:52 → ER 17:53
DX: U07.1 COVID-19 (principal); R11.2 Nausea with vomiting, unspecified; E78.00 Pure hypercholesterolemia, unspecified; Z80.0 Family history of malignant neoplasm of digestive organs; Z82.49 Family history of ischemic heart disease and other diseases of the circulatory system; Z80.49 Family history of malignant neoplasm of other genital organs; Z88.5 Allergy status to narcotic agent; Z95.9 Presence of cardiac and vascular implant and graft, unspecified; Z79.82 Long term (current) use of aspirin
CPT/HCPCS: 71045; 80053; 83605; 83615; 84145; 85025; 85610; 85730; 86141; 87040; 99284; U0002; 36415; 87635

== ENCOUNTER → 2021-01-06 | Outpatient (CLI) | payer MEDICARE, OTHER ==
[~2021-01-06] MED LIST changes: -CIPR500T4 PO; +CIPR500T5 PO; -ISOS30TA3 PO; +ISOS30TA82 PO; -LISI10TA2 PO; +LISI10TA25 PO; +PROM25TA14 PO
--- NOTE | 2021-01-06 17:42 | Diagnostic Imaging Report ---
CT Lung Screening INDICATION: [id number] smoking history. TECHNIQUE: Noncontrast, low-dose CT imaging performed according to the lung cancer screening protocol. Auto Exposure Controls were utilized during the CT exam to meet ALARA standards for radiation dose reduction. COMPARISON: 12/30/2019. FINDINGS: Air trapping and centrilobular emphysematous changes are stable. Some areas of nodular and curvilinear biapical pleural-parenchymal scarring are identical. No actionable lesion or suspicious mass. No findings to suggest CT evidence for lung cancer. No thoracic adenopathy. The aorta is nonaneurysmal. No effusion or pneumothorax. No findings of edema or pneumonia. IMPRESSION: Stable chronic findings with no evidence for lung cancer. Continued low-dose CT screening follow-up in one year's time recommended. LUNG-RADS CATEGORY: Lung-RADS category 2 MODIFIER: None OTHER SIGNIFICANT FINDINGS: Chronic COPD and areas of stable subpleural scarring. Dictated by: Dictated on workstation # [id number]
--- NOTE | 2021-01-07 13:21 | Diagnostic Imaging Report ---
INDICATION: 2-D and 3-D digital screening with cad. Compared with exams 11/27/2017, 10/2016 and 05/2013. FINDINGS: The exam is stable and negative. No breast mass, spiculated density, architectural distortion or suspicious calcifications. Scattered fibroglandular densities in the breast are unchanged. IMPRESSION: Stable negative mammograms. BI-RADS Category 1 ACR BI-RADS Category 1: Negative. Result letter will be mailed to the patient. Note: At least 10% of breast cancer is not imaged by mammography. Dictated by: Dictated on workstation # [id number]
== END ==
LOC: RAD 15:30
PROVIDERS: ATTEND Nurse Practitioner Family
DX: Z12.31 Encounter for screening mammogram for malignant neoplasm of breast (principal); Z12.2 Encounter for screening for malignant neoplasm of respiratory organs; F17.210 Nicotine dependence, cigarettes, uncomplicated
CPT/HCPCS: 71271; 77063; 77067

== ENCOUNTER → 2022-09-29 | Outpatient (CLI) | payer MEDICARE, OTHER ==
[~2022-09-29] MED LIST changes: +BARIUM for suspension 96% w/w (Vanilla Silq Medium Density) PO ONE; +BARIUM for suspension 98% w/w (Vanilla Silq High Density) PO ONE; +ERYT-126 PO; -ERYT-95 PO
--- NOTE | 2022-09-29 11:25 | Diagnostic Imaging Report ---
INDICATION: Choking. TECHNIQUE: The patient ingested effervescent crystals as well as thin and thick barium and imaging over the esophagus was performed in multiple obliquities. 59 seconds of fluoroscopic time was utilized. FINDINGS: The preliminary radiograph of the chest is unremarkable. The esophagus has a fairly smooth contour. No mass or stricture is identified. There is a small sliding-type hiatal hernia. No gastroesophageal reflux was demonstrated. Images of the stomach are unremarkable. IMPRESSION: Small hiatal hernia. The study is otherwise unremarkable. Dictated by: Dictated on workstation # [id number]
== END ==
LOC: RAD 09:45
PROVIDERS: ATTEND Family Medicine
DX: K44.9 Diaphragmatic hernia without obstruction or gangrene (principal)
CPT/HCPCS: 74220